=== PATIENT | female | born 1965 | race African-American/Black ===

== ENCOUNTER → 2020-07-08 13:39 | Outpatient (BNVA) | payer OTHER, SELFPAY | PROVIDERS: PCP Internal Medicine; Visit Provider Anesthesiology | DX: Z76.89 Persons encountering health services in other specified circumstances (principal) | CPT/HCPCS: 99202 ==

== ENCOUNTER 2020-08-04 05:40 | Outpatient (REF) | payer OTHER, SELFPAY ==
--- NOTE | 2020-08-04 08:47 | FL_ITS ---
EXAMINATION: XR FLUOROSCOPY WITH IMAGES CLINICAL INFORMATION: M16.0 - Bilateral primary osteoarthritis of hip COMPARISON: MRI pelvis 03/28/2018 TECHNIQUE: Fluoroscopy performed by 08/06/2020. Fluoroscopy time: 0.2 minutes DAP: 3.21 Gycm2 Images: 2 FINDINGS: There is spinal needle seen overlying the superolateral lateral aspect left hip joint with periarticular contrast and intra-articular contrast. FL/FL guidance in treatment room IMPRESSION: Fluoroscopy for pain management procedure.
== END 2020-08-04 05:41 | disposition home or self-care (01) ==
LOC: HO.RADIR 05:40
PROVIDERS: Visit Provider Anesthesiology
DX: M16.0 Bilateral primary osteoarthritis of hip (principal); M47.816 Spondylosis without myelopathy or radiculopathy, lumbar region
CPT/HCPCS: 20610; J3300; Q9967

== ENCOUNTER 2020-08-18 13:02 | Outpatient (REF) | payer OTHER, SELFPAY ==
--- NOTE | 2020-08-18 13:09 | MR_ITS ---
MR LUMBAR SPINE WITHOUT CONTRAST CLINICAL INFORMATION: Spondylosis without myelopathy or radiculopathy. COMPARISON: None available. TECHNIQUE: MRI of the lumbar spine was obtained using routine sequences without contrast. FINDINGS: There are 5 nonrib-bearing lumbar-type vertebral bodies. There is grade 1 degenerative anterolisthesis of L3 on L4. Modic type I endplate signal changes at L3-L4. No additional bone marrow edema. No acute fractures. Vertebral body heights are maintained. There is mild disc volume loss at L4-L5. Disc desiccation at all lumbar levels. The conus terminates at the L1 level. Sigmoid diverticulosis. L1-L2: Disc contour is normal. No central canal stenosis and no foraminal stenosis. L2-L3: Diffuse annular disc bulge with a superimposed left lateral disc protrusion that results in mass effect on the extraforaminal left L2 nerve root. No central canal and no right foraminal stenosis. L3-L4: Grade 1 degenerative anterolisthesis. Severe bilateral facet arthropathy and ligamentum flavum thickening. Findings in concert result in mild to moderate central canal stenosis, left subarticular zone stenosis with mass effect on the traversing left L4 nerve root, and a left foraminal disc protrusion results in severe left foraminal stenosis with compression of the exiting left L3 nerve root. L4-L5: Diffuse annular disc bulge and severe bilateral facet arthropathy and ligamentum flavum thickening. Mild central canal stenosis, bilateral subarticular zone stenosis with probable mass effect on the traversing L5 nerve roots bilaterally, and mild to moderate right-sided foraminal stenosis with right lateral disc osteophyte contacting the extraforaminal right L4 nerve root. L5-S1: Diffuse annular disc bulge and mild to moderate bilateral facet arthropathy. No central canal stenosis. Mild foraminal encroachment bilaterally. MR/MR lumbar spine wo con IMPRESSION: - At L4-L5, multifactorial degenerative changes result in mild central canal stenosis, bilateral subarticular zone stenosis with probable mass effect on the traversing L5 nerve roots bilaterally, and mild to moderate right-sided foraminal stenosis with right lateral disc osteophyte contacting the extraforaminal right L4 nerve root. - At L3-L4, grade 1 degenerative anterolisthesis and multifactorial degenerative changes result in mild to moderate central canal stenosis, left subarticular zone stenosis with mass effect on the traversing left L4 nerve root, and a left foraminal disc protrusion results in severe left foraminal stenosis with compression of the exiting left L3 nerve root. Modic type I endplate signal changes at this level. - At L2-L3, a far left lateral disc protrusion results in mass effect on the extraforaminal left L2 nerve root.
== END 2020-08-18 13:03 | disposition home or self-care (01) ==
LOC: HO.MRI 13:02
PROVIDERS: PCP Internal Medicine; Visit Provider Anesthesiology
DX: M47.816 Spondylosis without myelopathy or radiculopathy, lumbar region (principal)
CPT/HCPCS: 72148

== ENCOUNTER → 2020-09-16 11:12 | Outpatient (BNVA) | payer OTHER, SELFPAY | PROVIDERS: PCP Internal Medicine; Visit Provider Anesthesiology | DX: M16.0 Bilateral primary osteoarthritis of hip (principal); M47.816 Spondylosis without myelopathy or radiculopathy, lumbar region | CPT/HCPCS: 99212 ==

== ENCOUNTER → 2021-05-18 15:37 | Outpatient (BNVA) | payer OTHER, SELFPAY | PROVIDERS: PCP Internal Medicine; Referring Provider Internal Medicine; Visit Provider Nurse Practitioner Family ==

== ENCOUNTER 2021-09-16 14:33 | Outpatient (REF) | payer OTHER, SELFPAY ==
--- NOTE | ~2021-09-16 | CT_ITS ---
EXAMINATION: CT ABDOMEN AND PELVIS WITHOUT CONTRAST CLINICAL INFORMATION: Abdominal distention (gaseous). COMPARISON: CT abdomen and pelvis 08/17/2012. TECHNIQUE: Multidetector volumetric imaging was performed from the superior aspect of the liver through the pubic symphysis. Sagittal and coronal reformatted images were obtained on the technologist's workstation. This CT examination was performed using dose optimization techniques as appropriate, variously including the following: Automated exposure control. Adjustment of mA and/or kV according to patient size (this includes techniques or standardized protocols for targeted exams where dose is matched to indication/reason for exam; i.e. extremities or head). Use of iterative reconstruction technique. DLP: 381 mGy-cm FINDINGS: LUNG BASES: Motion artifact degrades image quality in the lung bases. No consolidation. LIVER, GALLBLADDER, AND BILIARY TREE: The liver is normal in size, shape, and attenuation. No focal hepatic lesion or biliary ductal dilatation is present. The gallbladder is unremarkable with no evidence of radiopaque gallstones, gallbladder wall thickening, or obvious pericholecystic inflammatory changes. PANCREAS: No pancreatic ductal dilatation or peripancreatic fat stranding. SPLEEN: Unremarkable. ADRENAL GLANDS: Unremarkable. KIDNEYS AND URETERS: The kidneys are symmetric in size. There are bilateral predominantly punctate nonobstructing renal calculi, the largest cluster of calcifications in the upper pole of the right kidney measure up to 5 mm. No hydroureter or ureteral calculi. BLADDER: The bladder is decompressed. No bladder calculi. GASTROINTESTINAL TRACT: The stomach is filled with debris. There is no bowel obstruction. There is colonic diverticulosis in the sigmoid colon without diverticulitis. Normal appendix. ABDOMINAL WALL: No significant hernia is appreciated. LYMPH NODES: No bulky lymphadenopathy. VASCULAR: Unremarkable. PELVIC VISCERA: The uterus and adnexa are unremarkable. OSSEOUS STRUCTURES: Severe degenerative disc disease at L4-L5 with vacuum disc phenomenon and underlying endplate sclerosis. Minimal anterolisthesis of L3 on L4 and minimal retrolisthesis of L5 on S1. CT/CT abdomen pelvis wo con IMPRESSION: 1. No evidence of bowel obstruction. 2. Colonic diverticulosis without diverticulitis. 3. Bilateral nonobstructing renal calculi. Fleischner guidelines were followed.
== END 2021-09-16 14:34 | disposition home or self-care (01) ==
LOC: HO.CT 14:33
PROVIDERS: Visit Provider Nurse Practitioner Family
DX: R14.0 Abdominal distension (gaseous) (principal)
CPT/HCPCS: 74176

== ENCOUNTER → 2021-10-27 10:58 | Outpatient (BNVA) | payer OTHER, SELFPAY | PROVIDERS: PCP Internal Medicine; Referring Provider Internal Medicine; Visit Provider Nurse Practitioner Family ==

== ENCOUNTER 2021-11-30 07:44 | Day surgery (SDC) | payer OTHER, SELFPAY ==
[2021-11-25 10:55] VITALS: BMI 21.9
--- NOTE | 2021-11-29 11:17 | P.CONAN_ITS ---
Documented by User: Mehnaz Haro NP 11/29/21 11:18 HPI - Anesthesia Eval Consult details Narrative: 56yo F for Upper Endoscopy and Colonoscopy [facility] Active Problems Active Problems: All Active Problems (Updated 08/03/21 @ 15:39 by Jeimy Gill MD) WESTLEY (generalized anxiety disorder) (Acute) Moderate recurrent major depression (Acute) Chronic GERD (Acute) Memory loss (Acute) Leukocytosis (Acute) Constipation by delayed colonic transit (Acute) Abdominal bloating (Acute) Skin lesions (Acute) Spondylosis of lumbar region without myelopathy or radiculopathy (Acute) Bilateral primary osteoarthritis of hip (Acute) Fibromyalgia (Acute) Depression with anxiety (Acute) Past Medical History Medical History Abdominal bloating Chronic GERD Constipation by delayed colonic transit Depression with anxiety Fibromyalgia WESTLEY (generalized anxiety disorder) Leukocytosis Memory loss Moderate recurrent major depression Skin lesions Family History Family History Father No problems noted. Mother Hypertension Diabetes Ovarian cancer Maternal Grandmother Cervical cancer Family/Other Mental health disorder Substance use disorder Surgical History Surgical History History of eye surgery History of surgery Social History Social History Housing: Apartment Alcohol intake: current Alcohol intake frequency: holidays/special occasions only Alcohol type: hard liquor Patient Tobacco Use Status: Current everyday Tobacco user Tobacco use type: Cigarette Cigarette Packs Per Day: 1.5 Cigarettes Per Day: 30.0 e-Cigarette/Vaping Use: Never Used Second Hand Smoke Exposure: No Use of substances other than those prescribed or required for medical reasons: Yes Substance Use Frequency: Daily Are you DNR?: No Advance Directives: No Advance Directives Information Provided: Yes Advance Directives on File: No service: No Current occupational status: unemployed Meds Allergies Allergy/AdvReac Type Severity Reaction Status Date / Time latex [LATEX] Allergy Mild RASH Verified 10/27/21 11:09 codeine [CODEINE] AdvReac Intermediate UPSET Verified 10/27/21 11:09 STOMACH naproxen [NAPROXEN] AdvReac Intermediate VOMITING Verified 10/27/21 11:09 Home Medications Medication Instructions Recorded Confirmed Last Taken Type clonazepam 1 mg tablet 1 mg PO TID PRN 06/19/20 08/03/21 Unknown History escitalopram oxalate 10 mg tablet 10 mg PO DAILY 08/03/21 08/03/21 Unknown History trazodone 100 mg tablet 200 mg PO BEDTIME PRN 08/03/21 08/03/21 Unknown History aripiprazole 2 mg tablet 2 mg PO DAILY 10/27/21 Unknown History oxcarbazepine 300 mg tablet 300 mg PO BID 10/27/21 Unknown History Exam Exam Date and Time: November 29, 2021 1117 Height,Weight and Vital Signs: Height 5 ft 7 in Weight 63.503 kg Assessment and Plan Assessment Anesthesia Assessment: Chart Reviewed Documented by User: Orville Wray MD 11/30/21 09:37 HPI - Anesthesia Eval Consult details Narrative: 56yo F for Upper Endoscopy and Colonoscopy back pain with radiation to LE . neck pain current smoker feeling bloated PMFSH Past Medical History Medical History Abdominal bloating Chronic GERD Constipation by delayed colonic transit Depression with anxiety Fibromyalgia WESTLEY (generalized anxiety disorder) Leukocytosis Memory loss Moderate recurrent major depression Skin lesions Family History Family History Father No problems noted. Mother Hypertension Diabetes Ovarian cancer Maternal Grandmother Cervical cancer Family/Other Mental health disorder Substance use disorder Family history of problems with anesthesia: No Surgical History Surgical History History of eye surgery History of surgery History of Problems with Anesthesia: No Social History Social History Housing: Apartment Alcohol intake: current Alcohol intake frequency: holidays/special occasions only Alcohol type: hard liquor Patient Tobacco Use Status: Current everyday Tobacco user Tobacco use type: Cigarette Cigarette Packs Per Day: 1.5 Cigarettes Per Day: 30.0 e-Cigarette/Vaping Use: Never Used Second Hand Smoke Exposure: No Use of substances other than those prescribed or required for medical reasons: Yes Substance Use Frequency: Daily Are you DNR?: No Advance Directives: No Advance Directives Information Provided: Yes Advance Directives on File: No service: No Current occupational status: unemployed Meds Allergies Allergy/AdvReac Type Severity Reaction Status Date / Time latex [LATEX] Allergy Mild RASH Verified 10/27/21 11:09 codeine [CODEINE] AdvReac Intermediate UPSET Verified 10/27/21 11:09 STOMACH naproxen [NAPROXEN] AdvReac Intermediate VOMITING Verified 10/27/21 11:09 Home Medications Medication Instructions Recorded Confirmed Last Taken Type clonazepam 1 mg tablet 1 mg PO TID PRN 06/19/20 08/03/21 Unknown History escitalopram oxalate 10 mg tablet 10 mg PO DAILY 08/03/21 08/03/21 Unknown History trazodone 100 mg tablet 200 mg PO BEDTIME PRN 08/03/21 08/03/21 Unknown History aripiprazole 2 mg tablet 2 mg PO DAILY 10/27/21 Unknown History oxcarbazepine 300 mg tablet 300 mg PO BID 10/27/21 Unknown History Exam Airway Mallampati Class: II TM Dist: >3cm Neck ROM: Limited Loose/Missing/Broken Teeth: Yes (Chipped, crack , poor dentation ) Heart: S1 S2 Lungs: bl breath sounds Assessment and Plan Assessment Anesthesia Assessment: Anesthesia Plan Discussed Final Anesthetic Review Family History of Problems with Anesthesia: No History of Problems with Anesthesia: No NPO: Yes ASA Class: III Final Preanesthetic Review: Meds/Allgs Chart Reviewed, Consent Obtained/Reviewed and Anes Risks/Benef Reviewed Patient Risk: High Procedure Risk: Intermediate Anesthetic Plan Anesthetic Plan: MAC: Disposition: Standard PACU
--- NOTE | 2021-11-30 07:21 | MHC.SHP ---
Pre-Procedural Eval Section A Date of Service: 11/30/21 Section B Chief Complaint: Diverticulosis of intestine,reflux Details of Present Illness: lower abdominal pain and distention Relevant Family History (Specify if Yes): No Relevant Social History: Tobacco Use Present Medications: see Short Stay Collaborative assessment Medical History: Significant History (Abdominal bloating Chronic GERD Constipation by delayed colonic transit Depression with anxiety Fibromyalgia WESTLEY (generalized anxiety disorder) Leukocytosis Memory loss Moderate recurrent major depression Skin lesions) History of Previous Operations: Relevant previous surgery/procedure and date(s) (eye surgery) Allergies: Allergies Allergy/AdvReac Type Severity Reaction Status Date / Time latex [LATEX] Allergy Mild RASH Verified 10/27/21 11:09 codeine [CODEINE] AdvReac Intermediate UPSET Verified 10/27/21 11:09 STOMACH naproxen [NAPROXEN] AdvReac Intermediate VOMITING Verified 10/27/21 11:09 Review of Systems Sugical H&P ROS: Negative: Constitution, Cardiovascular, Respiratory, Neurological, Psychiatric, Hem-Onc, Allergic/Immunologic, Gastrointestinal, Genitourinary, Musculoskeletal, Integumentary, Endocrine and Eyes/Ears/Nose/Throat Exam Surgical H&P Exam: Normal: HEENT, Normal: Heart, Normal: Lungs, Normal: Extremities, Normal: Abdomen, Normal: Skin and Normal: Neurological Plan Diagnosis/Plan: Unchanged I have reviewed the history and physical and performed a pertinent physical examination on my patient. No changes have occurred unless specified.
[2021-11-30 08:04] VITALS: BP 117/80; PULSE 77; RESP 16; TEMP 36.8; O2SAT 97
[2021-11-30] MEDS: Lactated Ringers 1,000 ML 100 ML IVCONT (08:27)
--- NOTE | 2021-11-30 09:04 | PM.OP ---
Brief Operative Note Date of Service: 11/30/21 Pre-op diagnosis: Diverticulosis of intestine,reflux, lower abdominal pain Post-op diagnosis: same Procedure: see op note Surgeon: Favian Brantley MD Anesthesia: MAC Was an Mixing Machine Operator used for this Procedure?: No Estimated blood loss (mL): 0 Condition: stable Disposition: PACU
--- NOTE | 2021-11-30 09:05 | P.OP_ITS ---
Operative Note Operative Note Date of Service: 11/30/21 Narrative: Operative Information Procedure Description: EGD, Colonoscopy Indication: Diverticulosis of intestine,reflux, lower abdominal pain Anesthesia: MAC FLEXIBLE TRANSORAL UPPER GASTROINTESTINAL ENDOSCOPY AND COLONOSCOPY PROCEDURE NOTE UPPER ENDOSCOPY Consent: Indications for the procedure and potential complications of bleeding, perforation, reaction to medications and missed diagnosis were discussed with the patient and informed consent was obtained. Instrument: Olympus GIF H 190 J mid size upper endoscope Monitoring: Vital signs and clinical assessment, continuous EKG monitoring, Pulse oximetry, Carbon Dioxide monitoring and blood pressure monitoring were done throughout the procedure. Procedure: The patient was placed in the left lateral decubitis position and pre-procedure medications were administered and a bite block was placed. The endoscope was inserted into the mouth and advanced under direct vision to the third part of duodenum. A careful inspection was made as the upper endoscope was withdrawn including a retroflexed examination of the proximal stomach; Findings and interventions are described below. Findings: Larynx:normal Esophagus: GE junction at 42 cm, diaphragm hiatus at 44 cm, consistent with 2 cm sliding hiatal hernia,possible short segment barretts, bx taken with mild inflammation at GEJ. Random esophagus bx also taken. small esophageal inlet patch noted. Stomach: Streaky gastritis with atrophic areas noted. Biopsies were obtained. Grade 2 flap valve on retroflexed examination of the cardia. Duodenum: Normal bulb and descending duodenum,bx taken Intervention: Biopsies as noted above COLONOSCOPY Instrument: Olympus variable stiffness pediatric scope [id number] Colonoscopy Monitoring: Vital signs and clinical assessment, continuous EKG monitoring, Pulse oximetry, Carbon Dioxide monitoring and blood pressure monitoring were done throughout the procedure. Colon withdrawal time was 13 minutes. Procedure: The patient was placed in the left lateral decubitis position and pre-procedure medications were administered. After a digital rectal examination of the ano-rectum, the video colonoscope was inserted into the rectum and advanced through the colon to the cecum/TI. The colonoscope was slowly withdrawn in a retrograde panoramic fashion and the colon mucosa was carefully examined including a retroflexed view of the rectum. Findings and interventions are described below. Procedure Difficulty: moderate due to looping Findings: Terminal Ileum-normal, bx taken random colon bx taken Cecum:normal Ascending Colon: normal Transverse Colon -normal Descending Colon:normal Sigmoid Colon: moderate severe diverticulosis with hypertrophic folds and mild patchy erythema Rectum: Retroflexion with moderate sized internal hemorrhoids, grade II Anorectum - mildly prolapsed internal hemorrhoids seen Colon preparation: [place] Bowel Preparation Scale Right colon; 2 Transverse colon: 2 Left colon; 1 (0 = Unprepared colon segment with mucosa not seen due to solid stool that cannot be cleared. 1 = Portion of mucosa of the colon segment seen, but other areas of the colon segment not well seen due to staining, residual stool and/or opaque liquid. 2 = Minor amount of residual staining, small fragments of stool and/or opaque liquid, but mucosa of colon segment seen well. 3 = Entire mucosa of colon segment seen well with no residual staining, small fragments of stool or opaque liquid) Impression and Post Procedure Diagnosis: Endoscopy Findings: possible barretts gastritis esophgeal inlet patch mild esophagitis Colonoscopy Findings: internal hemorrhoids diverticular disease Plan: Await Pathology results Repeat Colonoscopy in 5 years deu to prep on let side or earlier if clinically indicated High fiber diet leaflet avoid straining at stool, epsom salts and sitz bath, anusol supps or cream if h pylori pos treat if Barretts confirmed repeat EGD in 1-2 yrs Above findings were reviewed with the patient and relevant handouts were provided if indicated.
[2021-11-30 10:03] VITALS: BP 106/60; PULSE 97; RESP 16; TEMP 37.1; O2SAT 99
[2021-11-30 10:18] VITALS: BP 122/79; PULSE 85; O2SAT 98
[2021-11-30 10:33] VITALS: BP 126/76; PULSE 84; TEMP 37; O2SAT 97
== END 2021-11-30 10:55 ==
LOC: HO.SSS 07:45
PROVIDERS: PCP Internal Medicine; Visit Provider Internal Medicine Gastroenterology
PROC: (CPT 45380; principal; 2021-11-30 08:20)
DX: Z12.11 Encounter for screening for malignant neoplasm of colon (principal); K57.30 Diverticulosis of large intestine without perforation or abscess without bleeding; R10.30 Lower abdominal pain, unspecified; K64.1 Second degree hemorrhoids; K64.8 Other hemorrhoids; K58.2 Mixed irritable bowel syndrome; K59.01 Slow transit constipation; K21.9 Gastro-esophageal reflux disease without esophagitis; K20.80 Other esophagitis without bleeding; K29.50 Unspecified chronic gastritis without bleeding; K29.80 Duodenitis without bleeding; K44.9 Diaphragmatic hernia without obstruction or gangrene; Q39.8 Other congenital malformations of esophagus; N20.0 Calculus of kidney; F33.1 Major depressive disorder, recurrent, moderate; M79.7 Fibromyalgia; D72.829 Elevated white blood cell count, unspecified; Z79.899 Other long term (current) drug therapy; Z88.8 Allergy status to other drugs, medicaments and biological substances; Z91.040 Latex allergy status; F17.210 Nicotine dependence, cigarettes, uncomplicated
CPT/HCPCS: 45380; 43239; 88305; 88342; J0171; J2405

== ENCOUNTER 2022-02-01 13:44 | Emergency (ER) | payer OTHER, SELFPAY ==
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
--- NOTE | ~2022-02-01 | XR_ITS ---
EXAMINATION: XR THORACIC SPINE CLINICAL INFORMATION: Fall, trauma, pain COMPARISON: Chest radiographs 06/29/2018. MR lumbar spine 08/18/2020, CT abdomen 09/16/2021. TECHNIQUE: 3 views of the thoracic spine were obtained. Preliminary interpretation provided at time of exam during PACS downtime. FINDINGS: There is normal thoracic segmentation with 12 rib-bearing thoracic vertebrae. Borderline levocurvature mid thoracic spine again seen, similar to chest radiographs 2018. There is borderline wedging vertebral body T8, slightly more conspicuous when compared with lateral chest 2018. There is no paraspinal soft tissue swelling. The remainder of the vertebral bodies are normal in height. No spondylolisthesis or erosive changes. Hilar and mediastinal contours appear normal. XR/XR thoracic spine 3V IMPRESSION: -Mild wedging vertebral body T8, slightly more conspicuous when compared with lateral chest radiograph 2018. No paraspinal soft tissue swelling.
--- NOTE | ~2022-02-01 | XR_ITS ---
EXAMINATION: XR LUMBOSACRAL SPINE CLINICAL INFORMATION: Fall, trauma, pain COMPARISON: CT abdomen and pelvis 09/16/2021, MR lumbar spine 08/18/2020, radiographs lumbar spine 03/12/2015. TECHNIQUE: Three views of the lumbosacral spine. FINDINGS: There is normal lumbar segmentation with 5 nonrib-bearing lumbar vertebrae of normal height and normal lumbar lordosis. There is mild dextrocurvature. Prominent degenerative disc changes are again noted at L4-L5 with disc narrowing and vacuum disc and endplate sclerosis and vertebral spurring. There are lesser degenerative disc changes at L3-L4 along with a grade 0-1 spondylolisthesis similar to borderline increased since CT 2021. There are multilevel degenerative facet changes again seen. The SI joints and visualized sacrum are unremarkable. There are calculi again noted in the right kidney upper and lower poles. Probable calculi left kidney. XR/XR lumbar spine 2-3V IMPRESSION: -Severe degenerative disc changes L4-L5 similar to CT 2021. -Degenerative disc changes L3-L4 with grade 0-1 spondylolisthesis borderline increased. -Multilevel facet degeneration. -Multiple renal calculi, greater on right.
[2022-02-01 13:56] VITALS: BP 123/77; BP 98/64; PULSE 80; PULSE 98; RESP 18; TEMP 36.6; O2SAT 96; O2SAT 97; BMI 23.3
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
== END 2022-02-01 16:25 | disposition home or self-care (01) ==
PROVIDERS: Emergency Provider Emergency Medicine; PCP Internal Medicine
DX: R07.81 Pleurodynia (principal); S22.060A Wedge compression fracture of T7-T8 vertebra, initial encounter for closed fracture; S29.012A Strain of muscle and tendon of back wall of thorax, initial encounter; W18.2XXA Fall in (into) shower or empty bathtub, initial encounter; Y93.E1 Activity, personal bathing and showering; Y92.031 Bathroom in apartment as the place of occurrence of the external cause; Y99.9 Unspecified external cause status
CPT/HCPCS: 71101; 72072; 72100; 99283

== ENCOUNTER → 2022-02-07 11:20 | Outpatient (BNVA) | payer OTHER, SELFPAY | PROVIDERS: PCP Internal Medicine; Visit Provider Nurse Practitioner Family | DX: R14.0 Abdominal distension (gaseous) (principal); K21.9 Gastro-esophageal reflux disease without esophagitis; Z79.899 Other long term (current) drug therapy; Z98.890 Other specified postprocedural states | CPT/HCPCS: 99212 ==

== ENCOUNTER 2022-02-21 00:12 | Emergency (ER) | payer OTHER, SELFPAY ==
[2022-02-21 00:24] VITALS: BP 138/92; BP 146/83; PULSE 78; PULSE 90; RESP 16; TEMP 36.8; O2SAT 94; O2SAT 96; BMI 24.8
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
--- NOTE | 2022-02-21 03:00 | PC.NURSE ---
pt is increasingly agitated, tearful, reports that she doesn't know why she's at the hospital. explained that EMS brought pt in and she needs to stay until she is sober enough to leave - pt reports drinking lots of shots.
--- NOTE | 2022-02-21 03:06 | PC.NURSE ---
pt exit seeking, walking to door/attempting to open door, increasingly agitated/combative, difficult to redirect.
== END 2022-02-21 03:12 | disposition left against medical advice (07) ==
PROVIDERS: Emergency Provider Emergency Medicine; PCP Internal Medicine
DX: F10.920 Alcohol use, unspecified with intoxication, uncomplicated (principal); Y90.9 Presence of alcohol in blood, level not specified; F12.920 Cannabis use, unspecified with intoxication, uncomplicated; F17.200 Nicotine dependence, unspecified, uncomplicated
CPT/HCPCS: 99281; 99282

== ENCOUNTER 2022-05-10 14:31 | Outpatient (REF) | payer OTHER, SELFPAY ==
--- NOTE | ~2022-05-10 | XR_ITS ---
EXAMINATION: XR HAND, LEFT CLINICAL INFORMATION: Pain. COMPARISON: None TECHNIQUE: PA, lateral, and oblique views of the left hand. FINDINGS: Minimal reduction of PIP and DIP joint space seen without any bony erosive changes. There is minimal spurring along the DIP joint second digit and PIP joint first digit. No fracture or dislocation seen. Mild reduction of first carpometacarpal joint space is seen. There is minimal soft tissue swelling fifth dorsal MCP joint. XR/XR hand LT min 3V IMPRESSION: 1. Mild degenerative changes PIP and DIP joints and first carpometacarpal joint. No visible acute fracture or dislocation seen. 2. Minimal soft tissue swelling fifth MCP joint.
== END 2022-05-10 14:32 | disposition home or self-care (01) ==
LOC: HO.HOSX 14:31
PROVIDERS: Visit Provider Orthopaedic Surgery
DX: G56.32 Lesion of radial nerve, left upper limb (principal)
CPT/HCPCS: 99202

== ENCOUNTER 2022-06-22 11:36 | Outpatient (REF) | payer OTHER, SELFPAY | END 2022-06-22 11:37 | disposition home or self-care (01) | LOC: HO.HOSX 11:36 | PROVIDERS: Visit Provider Orthopaedic Surgery | DX: G56.32 Lesion of radial nerve, left upper limb (principal); M18.12 Unilateral primary osteoarthritis of first carpometacarpal joint, left hand | CPT/HCPCS: 73130; 99212 ==

== ENCOUNTER 2022-08-09 11:24 | Outpatient (REF) | payer OTHER, SELFPAY ==
[2022-08-09 14:54] LABS: Hematocrit 36.9 % (37.0-47.0); Hemoglobin 12.3 g/dl (12.0-16.0); Mean Corpuscular HGB Conc 33.3 g/dl (31.0-35.0); Mean Corpuscular Hemoglobin 28.4 pg (27.0-33.0); Mean Corpuscular Volume 85.2 fL (80.0-98.0); Mean Platelet Volume 9.9 fL (9.4-12.3); Platelet Count 213 X10*3/uL (160-400); Red Blood Count 4.33 X10*6/uL (4.20-5.50); Red Cell Distribution Width 14.8 % (11.0-16.0); White Blood Count 11.1 X10*3/uL (4.8-10.8)
[2022-08-09 16:40] LABS: Alanine Aminotransferase 12 U/L (0-31); Albumin Level 4.2 g/dL (3.5-5.0); Alkaline Phosphatase 74 U/L (39-117); Anion Gap 12 (12-20); Aspartate Amino Transferase 17 U/L (5-31); Bilirubin Total 0.3 mg/dL (0.0-1.0); Blood Urea Nitrogen 9 mg/dL (9-16); Calcium 9.7 mg/dL (8.4-10.2); Carbon Dioxide 28 mmol/L (22-29); Chloride 104 mmol/L (96-108); Estimated Glomerular Filt Rate > 60; Glucose Random 89 mg/dL (60-115); Potassium 3.8 mmol/L (3.3-5.1); Sodium 140 mmol/L (135-145); TSH reflex Free T4 0.64 uIU/mL (0.32-4.0); Total Protein 6.7 g/dL (6.5-8.0)
[2022-08-09 17:11] LABS: Folate > 20.0 ng/mL (> or = 4.0); Vitamin B12 589 pg/mL (200-900)
[2022-08-15 13:34] LABS: Transglutaminase Ab IgG <1.0 U/mL; Transglutaminase IgA <1.0 U/mL
[2022-08-15 14:59] LABS: Vitamin D 25-OH, D2 <4 ng/mL; Vitamin D 25-OH, D3 53 ng/mL; Vitamin D 25-OH, Total 53 ng/mL (30-100)
== END 2022-08-09 11:25 | disposition home or self-care (01) ==
LOC: HO.LAB 11:24
PROVIDERS: PCP Internal Medicine; Referring Provider Internal Medicine; Visit Provider Nurse Practitioner Family
DX: R10.9 Unspecified abdominal pain (principal); K21.9 Gastro-esophageal reflux disease without esophagitis; E55.9 Vitamin D deficiency, unspecified; K59.00 Constipation, unspecified; K20.90 Esophagitis, unspecified without bleeding; R19.7 Diarrhea, unspecified; R14.0 Abdominal distension (gaseous); K58.2 Mixed irritable bowel syndrome
CPT/HCPCS: 36415; 80053; 82306; 82607; 82746; 84443; 85027; 86003; 86364; 99212

== ENCOUNTER 2022-08-31 18:09 | Outpatient (REF) | payer OTHER, SELFPAY ==
[2022-09-09 16:58] LABS: Pancreatic Elastase-1 >500 mcg/g
== END 2022-08-31 18:10 | disposition home or self-care (01) ==
LOC: HO.LNP 18:09
PROVIDERS: Visit Provider Nurse Practitioner Family
DX: R10.9 Unspecified abdominal pain (principal); K21.9 Gastro-esophageal reflux disease without esophagitis
CPT/HCPCS: 82656; 87338

== ENCOUNTER 2022-09-01 16:34 | Outpatient (REF) | payer OTHER, SELFPAY ==
[2022-09-01 18:31] LABS: Adenovirus F 40/41 Not Detected (Not Detect.); Astrovirus Not Detected (Not Detect.); Campylobacter Not Detected (Not Detect.); Cryptosporidium Not Detected (Not Detect.); Cyclospora cayetanensis Not Detected (Not Detect.); E. coli EAEC Not Detected (Not Detect.); E. coli EPEC Not Detected (Not Detect.); E. coli ETEC Not Detected (Not Detect.); E. coli STEC Not Detected (Not Detect.); Entamoeba histolytica Not Detected (Not Detect.); Giardia lamblia Not Detected (Not Detect.); Norovirus GI/GII Not Detected (Not Detect.); Plesiomonas shigelloides Not Detected (Not Detect.); Rotavirus A Not Detected (Not Detect.); Salmonella Not Detected (Not Detect.); Sapovirus Not Detected (Not Detect.); Shigella sp./EIEC Not Detected (Not Detect.); Vibrio Not Detected (Not Detect.); Vibrio Cholerae Not Detected (Not Detect.); Yersinia enterocolitica Not Detected (Not Detect.)
== END 2022-09-01 16:35 | disposition home or self-care (01) ==
LOC: HO.LNP 16:34
PROVIDERS: Visit Provider Nurse Practitioner Family
DX: R19.7 Diarrhea, unspecified (principal)
CPT/HCPCS: 87507

== ENCOUNTER → 2022-09-20 11:30 | Outpatient (BNVA) | payer OTHER, SELFPAY | PROVIDERS: PCP Internal Medicine; Visit Provider Nurse Practitioner Family | DX: K21.9 Gastro-esophageal reflux disease without esophagitis (principal); K58.2 Mixed irritable bowel syndrome; R14.0 Abdominal distension (gaseous); Z79.899 Other long term (current) drug therapy | CPT/HCPCS: 99212 ==

== ENCOUNTER 2022-10-20 10:42 | Outpatient (REF) | payer OTHER, SELFPAY ==
--- NOTE | 2022-10-20 15:29 | PFT_ITS ---
Forced vital capacity 97%, FEV1 82%. FEV1/FVC ratio is 66. [id number] 52% and MVV 81%. Post bronchodilator therapy, there is a slight improvement in [id number]. Total lung capacity 105% and residual volume 96%. Diffusion capacity is 62% CONCLUSION: Mild obstructive airway disorder with a slight improvement after bronchodilator therapy. Clinical correlation is recommended. MD VAN Moore/BRYANL / [id number]
== END 2022-10-20 10:43 | disposition home or self-care (01) ==
LOC: HO.RESP 10:42
PROVIDERS: PCP Internal Medicine; Visit Provider Nurse Practitioner Family
DX: R05.9 Cough, unspecified (principal)
CPT/HCPCS: 94060; 94727; 94729

== ENCOUNTER 2022-12-15 10:41 | Outpatient (REF) | payer OTHER, SELFPAY ==
[2022-12-17 07:23] LABS: HPV mRNA E6/E7 rflx Not Detected (Not Detected)
== END 2022-12-15 10:42 | disposition home or self-care (01) ==
LOC: HO.LNP 10:41
PROVIDERS: PCP Internal Medicine; Visit Provider Advanced Practice Midwife
DX: Z01.419 Encounter for gynecological examination (general) (routine) without abnormal findings (principal); Z11.51 Encounter for screening for human papillomavirus (HPV); R10.2 Pelvic and perineal pain; N95.1 Menopausal and female climacteric states; R14.0 Abdominal distension (gaseous); Z86.018 Personal history of other benign neoplasm
CPT/HCPCS: 81003; 87624; 88142

== ENCOUNTER 2022-12-15 11:56 | Outpatient (REF) | payer OTHER, SELFPAY ==
[2022-12-15 15:46] LABS: CT PCR NOT DETECTED (Not Detect.); NG PCR NOT DETECTED (Not Detect.)
[2022-12-16 11:05] LABS: BV Int Neg Control Negative (Negative); BV Int Pos Control Positive (Positive)
== END 2022-12-15 11:57 | disposition home or self-care (01) ==
LOC: HO.LAB 11:56
PROVIDERS: Visit Provider Advanced Practice Midwife
DX: R10.2 Pelvic and perineal pain (principal); N95.1 Menopausal and female climacteric states; Z20.2 Contact with and (suspected) exposure to infections with a predominantly sexual mode of transmission
CPT/HCPCS: 0353U; 87480; 87510; 87660

== ENCOUNTER → 2023-01-06 11:32 | Outpatient (BNVA) | payer OTHER, SELFPAY | PROVIDERS: PCP Internal Medicine; Visit Provider Nurse Practitioner Family | DX: K21.9 Gastro-esophageal reflux disease without esophagitis (principal); K58.2 Mixed irritable bowel syndrome; R14.0 Abdominal distension (gaseous) | CPT/HCPCS: 99212 ==

== ENCOUNTER 2023-01-27 13:43 | Outpatient (REF) | payer OTHER, SELFPAY ==
--- NOTE | ~2023-01-27 | CT_ITS ---
EXAMINATION: CT CHEST SCREENING CLINICAL INFORMATION: Nicotine dependence. COMPARISON: None available. TECHNIQUE: Multidetector volumetric CT imaging of the chest is performed without contrast using low dose technique. Additional 2D coronal and sagittal reformatted images and axial 3D maximum intensity projection (MIP) images are generated on the CT workstation. This CT examination was performed using dose optimization techniques as appropriate, variously including the following: *Automated exposure control *Adjustment of mA and/or kV according to patient size (this includes techniques or standardized protocols for targeted exams where dose is matched to indication/reason for exam; i.e. extremities or head) *Use of iterative reconstruction technique DLP: 46 mGy-cm FINDINGS: LUNGS: The lungs are well expanded with a thin-walled 2.5 cm cyst in the right upper lobe. Fine reticular interstitial prominence is seen in the left upper lobe anterior segment. There are no pulmonary nodules, mass or consolidation. MEDIASTINUM: Thyroid lobes are symmetric and normal. The central trachea and the bronchi are widely patent. Heart size and the great vessels are normal caliber. No abnormal-sized mediastinal or hilar lymph nodes are seen. CORONARY ARTERY CALCIFICATION: None visualized on this study. PLEURA: There is no pleural effusion. No pleural mass or thickening. AXILLA: No lymphadenopathy. UPPER ABDOMEN: The visualized liver, spleen, pancreas and bilateral adrenal glands are unremarkable. Incidental finding of a 7 mm radiopaque calculus in the upper pole of the right kidney. OSSEOUS STRUCTURES: No visible sclerotic or lytic lesion. CT/CT lung screening IMPRESSION: 2.5 cm cyst right upper lobe. No focal nodule, mass or consolidation. Fine interstitial thickening left upper lobe. ASSESSMENT: Lung-RADS category 2: Benign RECOMMENDATION: Low-dose annual CT chest.
== END 2023-01-27 13:44 | disposition home or self-care (01) ==
LOC: HO.CT 13:43
PROVIDERS: PCP Internal Medicine; Visit Provider Physician Assistant Medical
DX: Z12.2 Encounter for screening for malignant neoplasm of respiratory organs (principal); F17.210 Nicotine dependence, cigarettes, uncomplicated
CPT/HCPCS: 71271; G0296

== ENCOUNTER 2023-01-30 10:53 | Outpatient (REF) | payer OTHER, SELFPAY ==
--- NOTE | ~2023-01-30 | CT_ITS ---
EXAMINATION: CT HEAD WITHOUT CONTRAST CLINICAL INFORMATION: Mild cognitive impairment. COMPARISON: Head CT dated 02/18/2012. TECHNIQUE: Contiguous axial imaging was performed from the skullbase to vertex without intravenous administration of contrast. This CT examination was performed using dose optimization techniques as appropriate, variously including the following: *Automated exposure control *Adjustment of mA and/or kV according to patient size (this includes techniques or standardized protocols for targeted exams where dose is matched to indication/reason for exam; i.e. extremities or head) *Use of iterative reconstruction technique DLP: 730 mGy-cm. FINDINGS: There is no evidence of acute intracranial hemorrhage or territorial infarction. No abnormal mass effect or midline shift is seen. Myles to white matter differentiation is well preserved. No extra-axial fluid collections are identified. The ventricles are normal in size. There is no abnormal attenuation within the brain parenchyma. The osseous structures and soft tissues are normal. The mastoid air cells and visualized portions of the paranasal sinuses are well aerated. CT/CT head/brain wo IV con IMPRESSION: No acute intracranial pathology.
--- NOTE | ~2023-01-30 | US_ITS ---
EXAMINATION: US PELVIS CLINICAL INFORMATION: Abdominal distention. COMPARISON: None available. TECHNIQUE: Ultrasound of the pelvis is performed using both transabdominal and transvaginal transducers along with Doppler. Transvaginal imaging is performed due to inadequate visualization transabdominally. FINDINGS: UTERUS: The uterus is anteverted and retroflexed measuring8.6 x 4.9 x 6.0 cm. The double wall endometrial thickness is 11 mm. The uterus is smooth in contour and has normal myometrial echogenicity. There is a single right-sided submucosal uterine fibroid present measuring 1.4 cm. ADNEXA: Both ovaries are visualized. There is normal color flow to the adnexa. There is no ovarian torsion. There is no pelvic ascites or fluid collection. Right ovary measures 2.2 x 2.0 x 1.6 cm for a volume of 3.7 mL which includes 2 small cysts the largest 1.2 cm. Left ovary measures 2.7 x 2.3 x 1.7 cm for a volume of 5.5 mL which includes a 1.3 cm benign cyst. US/US pelvic and transvaginal IMPRESSION: 1. Small submucosal uterine fibroid. 2. Bilateral small ovarian cysts which need no further follow-up.
== END 2023-01-30 10:54 | disposition home or self-care (01) ==
LOC: HO.CT 10:53
PROVIDERS: PCP Internal Medicine; Visit Provider Advanced Practice Midwife
DX: G31.84 Mild cognitive impairment of uncertain or unknown etiology (principal); R14.0 Abdominal distension (gaseous); Z86.018 Personal history of other benign neoplasm
CPT/HCPCS: 70450; 76830; 76856

== ENCOUNTER 2023-02-07 12:00 | Outpatient (RCR) | payer OTHER, SELFPAY ==
--- NOTE | 2022-10-24 14:33 | MHC.PT.EP ---
[facility] [place] [facility] [place] Office [place] Office [address] Simeon Mcleod [address] [phone] F: [phone] F: [phone] F: [phone] F: [phone] Physical Therapy Plan of Care Date of Evaluation: Date of Surgery: N/A Diagnosis: Low back pain, unspecified Assessment: Pt is a 57yo F who presents to PT with chronic back pain for years. She presents to PT with current impairments in pain, decreased ROM, decreased core stabilization, decreased strength, soft tissue restrictions and impaired posture. She stands/ambulates in a forward flexion posture. She is limited functionally by prolonged standing, walking, prolonged sitting, bending, and transitional movements. She is fair candidate for skilled PT due to chronicity of injury and comorbidities however she will benefit from trial of skilled PT in order to maximize strength and functional mobility to decrease pain, improve function and QOL. She is recommended to be seen 2x/week however she prefers 1x/week at this time therefore she will be seen 1x/week for 4 weeks and will be reassessed. Frequency and Duration: The patient will be seen 2x/week for 4 weeks Short Term Goals: Pt will be I with HEP to promote self management of symptoms Pt will demonstrate improvements in postural awareness throughout the day Boot Liner Maker Goals: Pt will tolerate standing and walking >20 min with improved posture and mechanics with LRAD Pt will demonstrate ability to squat and pick up operator object from the floor with proper mechanics Treatment Plan: Modalities to reduce pain, spasms and effusion. Manual therapy to restore motion and function. Therapeutic exercise to improve strength and flexibility. Neuromuscular re-education for posture and balance. Therapeutic activities to return to functional activities of daily living. Electronically signed by: Damaris Marx, PT, DPT Please sign and return to therapist. Thank you for your referral.
--- NOTE | 2023-02-28 11:43 | MHC.PT.DC ---
[facility] [place] Office [place] Office [place] Office [address] Simeon Mcleod [address] [phone] F: [phone] F: [phone] F: [phone] F: [phone] Physical Therapy Discharge Report Diagnosis: Low back pain, unspecified Date of Surgery: N/A Date of Evaluation: 10/24/22 Date of Discharge: 02/28/23 Treatments to Date: 8 Cancellations to Date: 3 No Shows to Date: 1 Discharge Status: Visit Non-compliance Discharge Summary: Pt was seen for PT from 10/24/22-02/07/23. She did not consistently attend and overall attended 8 PT sessions over the course of ~3 months. She had a no-show appointment for her last scheduled appointment. Pt is being D/C from skilled PT. Pt current level of function unknown at this time. Electronically signed by: Damaris Marx, PT, DPT Please sign and return to therapist. Thank you for your referral.
== END 2023-02-28 11:42 | disposition home or self-care (01) ==
LOC: HO.PT 12:00
PROVIDERS: PCP Internal Medicine; Visit Provider Internal Medicine
DX: M54.50 Low back pain, unspecified (principal)
CPT/HCPCS: 97110; 97140; 97163

== ENCOUNTER 2023-06-08 10:00 | Outpatient (AMB) | payer OTHER, SELFPAY ==
--- NOTE | 2023-06-08 10:01 | A.OFFVIS_ITS ---
Intake Intake Visit Reasons: TV Ultrasound Follow up/ 45min Intake Note: cell # [phone] The patient agreed to use of a medical claims examiner during this encounter. Scribed for LUKAS Shell by Martha Solano medical claims examiner, on 06/08/2023 at 10:13 am EST. Allergies latex [LATEX] Allergy (Mild, Verified 06/08/23 10:01) RASH codeine [CODEINE] Adverse Reaction (Intermediate, Verified 06/08/23 10:01) UPSET STOMACH naproxen [NAPROXEN] Adverse Reaction (Intermediate, Verified 06/08/23 10:01) VOMITING HPI HPI Comments History of Present Illness Details Doximity live video 10:13 am - 10:38 am. Phone Call due to Covid-19 Pandemic. Video was utilized. She presents via phone/live video to discuss US results regarding abdominal distention. Reports she recently had a dog bite to her face and received Rx. LMP was over a year and a half. Admits she was told she had ovarian cysts. Reports abdominal bloating and constipation. Reports she would like to learn more information about menopause and calcium information. Admits she take Calcium supplements. Current everyday smoker. [facility] Medical History Tobacco use Menopause Bilateral ovarian cysts Submucous uterine fibroid Nicotine dependence, cigarettes, uncomplicated WESTLEY (generalized anxiety disorder) Moderate recurrent major depression Chronic GERD Memory loss Leukocytosis Constipation by delayed colonic transit Abdominal bloating Fibromyalgia Surgical History History of lymph node excision History of endoscopy History of colonoscopy History of eye surgery Family History Father No problems noted. 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 COMPARISON: None available. TECHNIQUE: Ultrasound of the pelvis is performed using both transabdominal and transvaginal transducers along with Doppler. Transvaginal imaging is performed due to inadequate visualization transabdominally. FINDINGS: UTERUS: The uterus is anteverted and retroflexed measuring8.6 x 4.9 x 6.0 cm. The double wall endometrial thickness is 11 mm. The uterus is smooth in contour and has normal myometrial echogenicity. There is a single right-sided submucosal uterine fibroid present measuring 1.4 cm. ADNEXA: Both ovaries are visualized. There is normal color flow to the adnexa. There is no ovarian torsion. There is no pelvic ascites or fluid collection. Right ovary measures 2.2 x 2.0 x 1.6 cm for a volume of 3.7 mL which includes 2 small cysts the largest 1.2 cm. Left ovary measures 2.7 x 2.3 x 1.7 cm for a volume of 5.5 mL which includes a 1.3 cm benign cyst. US/US pelvic and transvaginal IMPRESSION: 1. Small submucosal uterine fibroid. 2. Bilateral small ovarian cysts which need no further follow-up. Collected: 12/15/22 Location: [facility] Received: 12/15/22 Interpretation Satisfactory for evaluation. Negative for intraepithelial lesion or malignancy. Coccobacilli consistent with shift in vaginal adwoa. HPV mRNA E6/E7: NOT DETECTED This assay detects E6/E7 viral messenger RNA (mRNA) from 14 high-risk HPV types (16, 18, 31, 33, 35, 39, 45, 51, 52, 56, 58, 59, 66, 68) HPV testing performed by [employer] [facility], [place], [place]. See reference laboratory portion of the EMR for entire report. Clinical Information LMP: Menopausal Previous PAP test: 2015, Abnormal Other history: Hx dysplaisa and colpo in 20's Assessment & Plan Assessment & Plan (1) Encounter to discuss test results: Code(s): Z71.2 - Person consulting for explanation of examination or test findings Plan: Discussed: US findings of: 1. Small submucosal uterine fibroid. 2. Bilateral small ovarian cysts which need no further follow-up. All of her questions and concerns were addressed to the best of my ability and shared decision making. She is agreeable to plan of care. RTO for AG 12/2023, repeat US same day per pt. request due to lack of transportation. (2) Submucous uterine fibroid: Code(s): D25.0 - Submucous leiomyoma of uterus Plan: Leiomyoma: common benign pelvic neoplasm. Report any PMB, pelvic pain. Plan expectant management. Pelvic US ordered. Pt would like same day appointment as AG. Expectant management follow up yearly for stability. (3) Bilateral ovarian cysts: Code(s): N83.201 - Unspecified ovarian cyst, right side; N83.202 - Unspecified ovarian cyst, left side (4) Menopause: Code(s): Z78.0 - Asymptomatic menopausal state Plan: Maintaining a healthy lifestyle including a well balanced diet including Calcium and Vitamin D and routine exercise. Report any PMB. Recommend researching [place] [employer]. Advised to consult with local pharmacist regarding Calcium and Vitamin D supplements. Encouraged tobacco cessation/reduction, impact on bone health. (5) Nicotine dependence, cigarettes, uncomplicated: Comment: (Current smoker - onset 17yo, 1ppd x 40yrs, 30+PYH) Code(s): F17.210 - Nicotine dependence, cigarettes, uncomplicated Plan: Encourage to lower tobacco intake then quit. Orders: Orders US pelvic and transvaginal 12/21/23 D25.0 - Submucous leiomyoma of uterus Telehealth Telehealth Location of provider rendering services: practice address Location of patient: address on file Patient Identification confirmed using: Name, : Yes Telehealth method: video Patient verbally consented to treatment: Yes Patient verbally consented to billing insurance company: Yes Patient informed of any privacy concerns related to visit: Yes Coding Level of Care Code Tele Est Pt Level 3 (91588) Diagnoses Encounter to discuss test results Z71.2 Submucous uterine fibroid D25.0 Bilateral ovarian cysts N83.201; N83.202 Menopause Z78.0 Nicotine dependence, cigarettes, uncomplicated F17.210
== END 2023-06-08 11:22 | disposition home or self-care (01) ==
LOC: HO.HWS 10:00
PROVIDERS: PCP Nurse Practitioner Family; Visit Provider Advanced Practice Midwife
DX: Z71.2 Person consulting for explanation of examination or test findings (principal); D25.0 Submucous leiomyoma of uterus; N83.201 Unspecified ovarian cyst, right side; N83.202 Unspecified ovarian cyst, left side; Z78.0 Asymptomatic menopausal state; F17.210 Nicotine dependence, cigarettes, uncomplicated
CPT/HCPCS: 99213

== ENCOUNTER → 2023-06-08 10:00 | Outpatient (BNVA) | payer OTHER, SELFPAY | PROVIDERS: PCP Nurse Practitioner Family; Visit Provider Advanced Practice Midwife ==

== ENCOUNTER 2023-07-24 13:38 | Outpatient (AMB) | payer OTHER, SELFPAY ==
[2023-07-24 13:45] VITALS: BP 108/68; PULSE 96; O2SAT 95; BMI 22.9
--- NOTE | 2023-07-24 13:45 | MHC.PC.OV ---
Vital Signs 07/24/23 13:45 Height 5 ft 7 in Weight 146 lb 6 oz BMI 22.9 BP 108/68 Blood Pressure Location Lt brachial Position Sitting Pulse 96 Pulse Source Pulse Oximeter Pulse Oximetry (%) 95 Oxygen Delivery Method Room Air Intake Visit Reasons: leg vein concerns, would like EKG Intake Note: Pt is here with a concerns about the left leg, reporting noticeable veins protruding and experiencing numbness in the lower extremities. Data Systems Manager Required: No Accompanied by: Self / Same As Patient Allergies latex [LATEX] Allergy (Mild, Verified 07/24/23 13:58) RASH codeine [CODEINE] Adverse Reaction (Intermediate, Verified 07/24/23 13:58) UPSET STOMACH naproxen [NAPROXEN] Adverse Reaction (Intermediate, Verified 07/24/23 13:58) VOMITING Medication List - Last Reconciled 07/24/23 by Filemon Sy PA-C acetaminophen ER 1,300 mg (2 x 650 mg) PO Q12H PRN 30 days albuterol sulfate 90 mcg/actuation (Ventolin HFA) 2 puffs inhalation Q4-6H PRN amoxicillin-pot clavulanate 875-125 mg 1 tab PO BID calcium carbonate-vitamin D3 500 mg-10 mcg (400 unit) (Oyster Shell Calcium-Vitamin D3) 1 tab PO DAILY 90 days clonazepam 1 mg PO TID PRN cyclobenzaprine 10 mg PO BEDTIME PRN 3 months escitalopram oxalate 20 mg PO DAILY fluticasone propionate 50 mcg/actuation (Flonase Allergy Relief) 1 spray intranasal DAILY food supplemt, lactose-reduced (Ensure oral liquid) ea PO gabapentin 800 mg PO TID 3 months glucosamine-chondroitin 750-600 mg 1 tab PO BID ibuprofen 800 mg PO TID PRN 30 days Lacto no.51-B.animalis-inulin 30 billion cell -50 mg (Fortify Women Probiotic) caps PO lidocaine 5% 1 patch topical DAILY PRN 30 days loperamide (Imodium A-D) 2 mg PO Q4H PRN kl-xsr-cgfxz-calcium carb-K1 400 mcg-500 mg calcium-20 mcg (Women's 50 Plus Multivitamin) 1 tab PO DAILY omeprazole 20 mg PO DAILY simethicone (Gas Relief (simethicone)) 80 mg PO TID-QID PRN trazodone 200 mg PO BEDTIME PRN [Tumeric Curcumin Complex 1 cap PO DAILY] valacyclovir 1,000 mg PO DAILY 90 days Tobacco use date assessed: 09/23/22 Dental Screening Dental Screen Date: 07/24/23 Did you have a dental visit in the last 12 months?: Yes Did you have a dental problem in the last 6 months where you did not have access to dental care?: No Was dental information given to patient?: Patient has dentist HPI leg vein concerns, would like EKG HPI Details Patient is a 58-year-old female here today for a problem visit. Patient's past medical history significant for anxiety disorder, tobacco dependency. She reports over the last several months he has noted bulging viens in her lower extremities she is concerned about. She is also concerned about her constipation that has been evident over the last several years. Does see a GI specialist and has tried befm-tqx-qmhrudu laxatives. She does report spending few hours every morning on the toilet trying to pass stool. During her time on the toilet she does get was seems to be positional neuropathy symptoms in her left lower extremity PFS Medical History Tobacco use Menopause Bilateral ovarian cysts Submucous uterine fibroid Nicotine dependence, cigarettes, uncomplicated WESTLEY (generalized anxiety disorder) Moderate recurrent major depression Chronic GERD Memory loss Leukocytosis Constipation by delayed colonic transit Abdominal bloating Fibromyalgia Surgical History History of lymph node excision History of endoscopy History of colonoscopy History of eye surgery Family History Father No problems noted. 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 Trevon Bowden, Kathleen Oconnor, German Quintero and colleagues, with an educational zeke from [employer]. Review of Systems Const Denies headache(s) Eyes Denies loss of vision ENT Denies vertigo, Denies dizziness, Denies headache(s) and Denies sore throat Card Denies chest pain, Denies leg edema and Denies lightheadedness Resp Denies cough, Denies hemoptysis and Denies wheezing GI Denies abdominal pain, Denies melena, Reports constipation, Denies diarrhea and Denies vomiting Denies urinary frequency, Denies dysuria and Denies urinary urgency Musc Denies arthralgias, Denies joint swelling, Reports numbness and Reports tingling Neuro Details: + left lower extremity numbness and tingling Denies Abnormal speech present, Denies behavioral changes, Denies vertigo, Denies dizziness, Denies headache(s), Denies loss of vision, Denies memory loss, Reports numbness and Reports tingling Psych Denies anxiety, Denies behavioral changes, Denies depression, Denies memory loss and Denies panic attacks Jose/Lymph Denies easy bleeding and Denies easy bruising Aller/Immun Denies wheezing Physical exam (Primary Care) Vital Signs: Last Vital Signs Pulse 96 07/24/23 13:45 BP 108/68 07/24/23 13:45 Pulse Ox 95 07/24/23 13:45 Oxygen Delivery Method Room Air 07/24/23 13:45 BMI result Body Mass Index 22.9 Tobacco/Smoking Status: Tobacco use Status Tobacco use date assessed 09/23/22 07/24/23 13:45 Patient Tobacco Use Status Current everyday Tobacco 07/24/23 13:45 Tobacco use type Cigarette 07/24/23 13:45 e-Cigarette/Vaping Use Never Used 07/24/23 13:45 Thrive Assessment: Date of Thrive Assessment Date Thrive assessed 09/23/22 07/24/23 13:45 Const General: healthy appearing, no acute distress, alert and awake Nutritional Appearance: well nourished Orientation/consciousness: oriented to person, oriented to place and oriented to time HENMT Ears: TM's normal bilaterally General nose exam: Normal nasal mucous membranes and turbinates present Eyes Conjunctivae: conjunctivae normal Sclerae: sclerae normal Pupils: Equal, round and reactive pupils present Neck Neck: Yes no lymphadenopathy and Yes no JVD Thyroid: Thyroid normal Carotids: no bruits Resp Effort & Inspection: normal respiratory effort and not tachypneic Auscultation: no crackles, no rales, no rhonchi and no wheezes Cardio Rate: regular rate Rhythm: regular rhythm Heart sounds: no murmurs and normal S1 and S2 GI Palpation (GI): Soft to palpation, nontender, no hepatomegaly and no splenomegaly Auscultation: normal bowel sounds Skin General skin exam: no rashes or lesions noted and dry skin Neuro General: oriented to person, oriented to place and oriented to time Cranial nerves: Yes Equal, round and reactive pupils present Speech: No Abnormal speech present Gait exam (Neuro): Normal gait present Motor exam (neuro): no tremor noted Extrem Right upper extremity: full ROM Left upper extremity: full ROM Right lower extremity: full ROM; no edema Left lower extremity: full ROM; no edema Psych Mental Status: mental status grossly normal Speech and movement: Normal speech and movement present Affect: normal affect Attitude: cooperative Thought process: Normal thought process present Office Procedures Flu Questionnaire Does the patient have a severe egg allergy?: No Does the patient have severe life threatening allergies?: No Does the patient have a fever or illness today?: No Has the patient ever had Guillain-[place] Syndrome?: No Has the patient ever had any past reaction to a flu shot?: No Immunizations flu vacc [id number] 6mos up(PF) 60 mcg(15 mcgx4)/0.5 mL IM syringe Performing Provider: Filemon Sy PA-C Performing Location: [facility] Administered by: ED Cordova on 07/24/23 14:33 Dose Route Admin Location Dispensed Lot Number Expiration Date NDC Invoice Classification Clerk 0.5 mL IM Left Deltoid 0.5 mL [id number] 02/18/24 60230-321-66 [employer] VIS Given Date VIS Provided VIS Publication Date 07/24/23 Single Vaccine 21 Eligibility Eligibility Date Funding Source Not [facility] Eligible 07/24/23 Private Assessment and Plan Assessment & Plan (1) Neuropathy: Code(s): G62.9 - Polyneuropathy, unspecified Plan: As per HPI patient does get intermittent numbness and tingling in her left lower extremity. She does report this often happens as she spends a lot of time sitting on the toilet due to her GI issues. Advised on a modified raised toilet seat to help reduce the occurrence of positional neuropathy while sitting on the toilet. (2) Constipation: Code(s): K59.00 - Constipation, unspecified Qualifiers: Constipation type: slow transit constipation Qualified Code(s): K59.01 - Slow transit constipation Plan: Unclear cause of patient's constipation though will supply patient with lactulose to use for his laxative affect. Advised to increase her fiber and fluid in her diet. Advised on a modified raised toilet seat Orders: Orders Influenza [id number] Immunization 07/24/23 Z23 - Encounter for immunization Medications: New lactulose 20 grams (30 mL) PO DAILY 30 days PRN 900 mL 0RF laxative effect K59.00 - Constipation, unspecified Coding Level of Care Code Est Pt Level 3 (44201) Diagnoses Neuropathy G62.9 Slow transit constipation K59.01 Constipation type: slow transit constipation
== END 2023-07-24 14:28 | disposition home or self-care (01) ==
PROVIDERS: PCP Nurse Practitioner Family; Visit Provider Physician Assistant
DX: Z23 Encounter for immunization (principal)
CPT/HCPCS: 90471; 90686; 99213

== ENCOUNTER 2023-08-19 07:10 | Outpatient (REF) | payer OTHER, SELFPAY ==
[2023-08-19 07:20] LABS: MANUAL DIFF FLAG NO
[2023-08-19 07:45] LABS: Basophils Absolute Auto 0.1 X10*3/uL (0.0-0.2); Basophils Percent Auto 0.6 % (0-2); Eosinophils Absolute Auto 0.1 X10*3/uL (0.0-0.4); Eosinophils Percent Auto 0.9 % (0-4); Hematocrit 38.2 % (37.0-47.0); Hemoglobin 13.2 g/dl (12.0-16.0); Imm Gran Abs Auto 0.04 X10*3/uL (0.00-0.03); Imm Gran Pct Auto 0.3 % (0.0-0.4); Lymphocytes Absolute Auto 1.9 X10*3/uL (1.2-4.9); Lymphocytes Percent Auto 16.9 % (20-40); Mean Corpuscular HGB Conc 34.6 g/dl (31.0-35.0); Mean Corpuscular Hemoglobin 31.5 pg (27.0-33.0); Mean Corpuscular Volume 91.2 fL (80.0-98.0); Mean Platelet Volume 9.8 fL (9.4-12.3); Monocytes Absolute Auto 0.4 X10*3/uL (0.1-1.2); Monocytes Percent Auto 3.5 % (2-11); Neutrophils Absolute Auto 8.9 x10*3/uL (2.0-8.3); Neutrophils Percent Auto 77.8 % (45-73); Platelet Count 460 X10*3/uL (160-400); Red Blood Count 4.19 X10*6/uL (4.20-5.50); Red Cell Distribution Width 14.1 % (11.0-16.0); White Blood Count 11.5 X10*3/uL (4.8-10.8)
[2023-08-19 08:20] LABS: Alanine Aminotransferase 8 U/L (0-31); Albumin Level 3.7 g/dL (3.5-5.0); Alkaline Phosphatase 73 U/L (39-117); Anion Gap 16 (12-20); Aspartate Amino Transferase 13 U/L (5-31); Bilirubin Total 0.4 mg/dL (0.0-1.0); Blood Urea Nitrogen 10 mg/dL (9-16); Calcium 9.6 mg/dL (8.4-10.2); Carbon Dioxide 27 mmol/L (22-29); Chloride 102 mmol/L (96-108); Estimated Glomerular Filt Rate > 60; Glucose Fasting 153 mg/dL (60-99); Potassium 2.8 mmol/L (3.3-5.1); Sodium 142 mmol/L (135-145); Total Protein 7.2 g/dL (6.5-8.0)
[2023-08-19 08:37] LABS: Thyroid Stimulating Hormone 0.39 uIU/mL (0.32-4.0)
[2023-08-21 03:58] LABS: HIV AB/AG Nonreactive (Nonreactive); HIV Num 1 0.05 S/CO (0.00-0.99)
== END 2023-08-19 07:11 | disposition home or self-care (01) ==
LOC: HO.LAB 07:10
PROVIDERS: PCP Internal Medicine; Visit Provider Internal Medicine
DX: R63.4 Abnormal weight loss (principal)
CPT/HCPCS: 36415; 80053; 84443; 85025; 87389

== ENCOUNTER 2023-08-28 14:04 | Outpatient (AMB) | payer OTHER, SELFPAY ==
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
[2023-08-28 14:12] VITALS: BP 120/78; PULSE 83; O2SAT 96; BMI 21.9
== END 2023-08-28 14:44 | disposition home or self-care (01) ==
PROVIDERS: PCP Internal Medicine; Referring Provider Internal Medicine; Visit Provider Nurse Practitioner Family
DX: M54.51 Vertebrogenic low back pain (principal); M47.816 Spondylosis without myelopathy or radiculopathy, lumbar region; M51.36 Other intervertebral disc degeneration, lumbar region; M53.3 Sacrococcygeal disorders, not elsewhere classified; M48.061 Spinal stenosis, lumbar region without neurogenic claudication
CPT/HCPCS: 99204

== ENCOUNTER → 2023-08-28 14:04 | Outpatient (BNVA) | payer OTHER, SELFPAY | PROVIDERS: PCP Internal Medicine; Referring Provider Internal Medicine; Visit Provider Nurse Practitioner Family | DX: M54.51 Vertebrogenic low back pain (principal); M47.816 Spondylosis without myelopathy or radiculopathy, lumbar region; M51.36 Other intervertebral disc degeneration, lumbar region; M53.3 Sacrococcygeal disorders, not elsewhere classified; M48.061 Spinal stenosis, lumbar region without neurogenic claudication | CPT/HCPCS: 99202 ==

== ENCOUNTER 2023-09-11 13:57 | Outpatient (REF) | payer OTHER, SELFPAY ==
--- NOTE | ~2023-09-11 | MM_ITS ---
EXAMINATION: MM SCREENING DIGITAL BREAST TOMOSYNTHESIS, BILATERAL CLINICAL INFORMATION: Screening. Asymptomatic. COMPARISON: Mammography: This study is compared with prior exams dating back to 2015. TECHNIQUE: Digital breast tomosynthesis is performed in both the craniocaudal and mediolateral oblique views along with computer-aided detection (CAD). Synthesized 2D images are generated from the tomosynthesis. FINDINGS: The breasts are heterogeneously dense, which may obscure small masses (ACR BI-RADS breast composition Category c). There are no significant masses, abnormal calcifications, or other abnormalities. MM/MM tomosynthesis screening BI IMPRESSION: No mammographic evidence of malignancy. ASSESSMENT: BI-RADS BI-RADS 1 - Negative RECOMMENDATION: Routine annual mammography screening. 1 year F/U This examination should not preclude the clinical evaluation of a suspicious palpable abnormality. This patient's information was entered into a reminder system with a target due date for their next mammogram.
== END 2023-09-11 13:58 | disposition home or self-care (01) ==
LOC: HO.MAMMO 13:57
PROVIDERS: PCP Internal Medicine; Visit Provider Internal Medicine
DX: Z12.31 Encounter for screening mammogram for malignant neoplasm of breast (principal)
CPT/HCPCS: 77063; 77067

== ENCOUNTER → 2023-09-11 14:15 | Outpatient (BNV) | payer OTHER, SELFPAY | PROVIDERS: PCP Internal Medicine; Visit Provider Radiology Diagnostic Radiology | DX: Z12.31 Encounter for screening mammogram for malignant neoplasm of breast (principal) | CPT/HCPCS: 77063; 77067 ==

== ENCOUNTER 2023-10-03 13:05 | Outpatient (AMB) | payer OTHER, SELFPAY ==
--- NOTE | 2023-10-03 13:11 | MHC.PC.OV ---
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: No Accompanied by: Self / Same As Patient Allergies latex [LATEX] Allergy (Mild, Verified 10/03/23 13:23) RASH codeine [CODEINE] Adverse Reaction (Intermediate, Verified 10/03/23 13:23) UPSET STOMACH naproxen [NAPROXEN] Adverse Reaction (Intermediate, Verified 10/03/23 13:23) VOMITING Medication List - Last Reconciled 10/03/23 by Jeimy Gill MD albuterol sulfate 90 mcg/actuation (Ventolin HFA) 2 puffs inhalation Q4-6H PRN calcium carbonate-vitamin D3 500 mg-10 mcg (400 unit) (Oyster Shell Calcium-Vitamin D3) 1 tab PO DAILY 90 days cyclobenzaprine 10 mg PO BEDTIME PRN 3 months escitalopram oxalate 20 mg PO DAILY fluticasone propionate 50 mcg/actuation (Flonase Allergy Relief) 1 spray intranasal DAILY food supplemt, lactose-reduced (Ensure Plus) 1 ea PO BID 25 days food supplemt, lactose-reduced (Ensure oral liquid) ea PO gabapentin 800 mg PO TID 3 months glucosamine-chondroitin 750-600 mg 1 tab PO BID ibuprofen 800 mg PO TID PRN 30 days lactulose 20 grams (30 mL) PO DAILY PRN 30 days lidocaine 5% 1 patch topical DAILY PRN 30 days loperamide (Imodium A-D) 2 mg PO Q4H PRN es-dwt-omeun-calcium carb-K1 400 mcg-500 mg calcium-20 mcg (Women's 50 Plus Multivitamin) 1 tab PO DAILY omeprazole 20 mg PO DAILY simethicone (Gas Relief (simethicone)) 80 mg PO TID-QID PRN trazodone 200 mg PO BEDTIME PRN [Tumeric Curcumin Complex 1 cap PO DAILY] valacyclovir 1,000 mg PO DAILY 90 days Tobacco use date assessed: 10/03/23 Dental Screening Dental Screen Date: 10/03/23 Did you have a dental visit in the last 12 months?: Yes Did you have a dental problem in the last 6 months where you did not have access to dental care?: No Was dental information given to patient?: Patient has dentist HPI HPI Comments History of Present Illness Details This is a 58-year-old female with moderate major depression that comes for her physical exam. On escitalopram for her depression and she follows with counseling and has no suicidal thoughts. Mammogram done August 2023. Pap smear done 2022. Colonoscopy done 2021. Walks with a cane for gait stability due to severe chronic low back pain. She is aware that she has prediabetes and fasting blood glucose will be repeated. Advised to cut down on drinking alcohol. [facility] Medical History (Updated 10/03/23 @ 13:50 by Jeimy Gill MD) Malnutrition Tobacco use Menopause Bilateral ovarian cysts Submucous uterine fibroid Nicotine dependence, cigarettes, uncomplicated WESTLEY (generalized anxiety disorder) Moderate recurrent major depression Chronic GERD Memory loss Leukocytosis Constipation by delayed colonic transit Abdominal bloating Fibromyalgia Surgical History History of lymph node excision History of endoscopy History of colonoscopy History of eye surgery Family History Father No problems noted. Mother Hypertension Diabetes Maternal Grandmother Cervical cancer Ovarian cancer Family/Other Mental health disorder Substance use disorder Social History Housing: Apartment Alcohol intake: current Alcohol intake frequency: a few times a week Alcohol type: wine Patient Tobacco Use Status: Current everyday Tobacco user Tobacco use type: Cigarette Cigarette Packs Per Day: 1 Years Smoked: (onset 17yo, 1ppd x 40yrs, 30+PYH) e-Cigarette/Vaping Use: Never Used Second Hand Smoke Exposure: No Substance Use Type: Crack/Cocaine, Marijuana and Other service: No Current occupational status: unemployed and disabled 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 1. Little interest or pleasure in doing things: more than half the days 2. Feeling down, depressed, or hopeless: nearly every day 3. Trouble falling or staying asleep, or sleeping too much: several days 4. Feeling tired or having little energy: nearly every day 5. Poor appetite or overeating: not at all 6. Feeling bad about yourself - or that you are a failure or have let yourself or your family down: nearly every day 7. Trouble concentrating on things, such as reading the newspaper or watching television: more than half the days 8. Moving or speaking so slowly that other people could have noticed. Or the opposite - being so fidgety or restless that you have been moving around a lot more than usual: nearly every day 9. Thoughts that you would be better off or of hurting yourself in some way: not at all Total score: 17 Depression Screening Interpretation: Positive (no suicidal thoughts) Depression Screening Follow-up: Existing condition Depression Screening Done: Yes 49983 - PHQ-9 Billing: Yes Source: Developed by Drs. Trevon Bowden, Kathleen Oconnor, German Quintero and colleagues, with an educational zeke from [employer]. Thrive Questionnaire Date Thrive assessed: 10/03/23 I am a: Patient What is your living situation today?: I have a steady place to live Within the past 12 months, did the food you bought not last and you didn't have the money to get more?: Never true Within the past 12 months, did you worry whether your food would run out before you got money to buy more?: Never true Do you have trouble paying for medicines?: No Do you have trouble getting transportation to medical appointments?: No Do you have trouble paying your heating and electricity bill?: No Do you have trouble taking care of your child, family member or friend?: No Do you have trouble with day-to-day activities such as bathing, preparing meals, shopping, managing finances, etc.?: Yes Are you currently unemployed and looking for a job?: No Are you interested in more education?: No Please select the resources that you would like help with: None THRIVE Score: 0 AUDIT C Alcohol Use Questionnaire (AUDIT-C) 1. How often do you have a drink containing alcohol?: 2-3 times a week 2. How many drinks containing alcohol do you have on a typical day when you are drinking?: 1 or 2 3. How often do you have six or more drinks on one occasion?: Never Total Score: 3 Score Reviewed/Action Taken: Yes WESTLEY-7 AMB Questionnaire WESTLEY-7 Date WESTLEY - 7 assessed: 10/03/23 Feeling nervous, anxious, or on edge: 3 = Nearly every day Not being able to stop or control worryin = More than half the days Worrying too much about different things: 3 = Nearly every day Trouble relaxin = Nearly every day Being so restless that it is hard to sit still: 0 = Not at all Becoming easily annoyed or irritable: 3 = Nearly every day Feeling afraid as if something awful might happen: 3 = Nearly every day Total WESTLEY-7 score (0-4 normal; 5-9 mild; 10-14 moderate; 15-21 severe): 17 Source: Developed by Drs. Trevon Bowden, Kathleen Oconnor, German Quintero and colleagues, with an educational zeke from [employer]. WESTLEY-7 Assessment Billing WESTLEY-7 Assessment Tool: WESTLEY-7 Assessment 76635 Review of Systems Const All systems reviewed & are unremarkable except as noted in HPI and below Eyes Reports no additional complaints, Denies change in vision and Denies other visual disturbances Card Denies chest pain at rest, Denies chest pain with activity, Denies edema, Denies irregular heart rhythm, Denies claudication, Denies dyspnea, Denies dyspnea on exertion, Denies orthopnea, Denies paroxysmal nocturnal dyspnea and Denies slow heart rate Resp Denies cough, Denies dyspnea and Denies dyspnea on exertion GI Denies abdominal pain, Denies change in bowel habits, Denies excessive flatus, Denies nausea and Denies vomiting Denies urinary incontinence, Denies urinary hesitancy and Denies urinary urgency Musc Denies abnormal gait, Reports back pain, Denies atrophy, Denies deformity and Denies limited range of motion Skin/Breast Denies bleeding lesions, Denies changing lesions and Denies rash Neuro Denies abnormal gait and Denies lack of coordination Physical exam (Primary Care) Vital Signs: Last Vital Signs BP 110/78 10/03/23 13:13 BMI result Body Mass Index 24.3 Tobacco/Smoking Status: Tobacco use Status Tobacco use date assessed 10/03/23 10/03/23 13:20 Patient Tobacco Use Status Current everyday Tobacco 10/03/23 13:20 Tobacco use type Cigarette 02/13/24 13:20 e-Cigarette/Vaping Use Never Used 10/03/23 13:20 PHQ-9: PHQ-9 Score PHQ-9: Total score 17 10/03/23 13:20 Depression Screening Interpretation: Positive (no suicidal thoughts) Depression Screening Follow-up: Existing condition Thrive Assessment: Date of Thrive Assessment Date Thrive assessed 10/03/23 10/03/23 13:22 Const Orientation/consciousness: patient oriented x3 Limitations: ambulation with cane HENMT Head: Yes normal to inspection, Yes normocephalic and Yes atraumatic Ears: external ears normal Eyes General: appearance normal, both eyes and all related structures Eyelids: Yes eyelids normal Conjunctivae: conjunctivae normal Neck Neck: Yes normal visual inspection and Yes supple Resp Effort & Inspection: normal respiratory effort Auscultation: clear to auscultation bilaterally Cardio Jugular venous distension: no JVD Rate: regular rate Rhythm: regular rhythm Heart sounds: S1 normal heart sound present and S2 normal heart sound present GI Inspection: Yes normal to inspection Palpation (GI): Soft to palpation and nontender Auscultation: normal bowel sounds Skin General skin exam: no rashes or lesions noted Neuro General: patient oriented x3 and no focal motor deficits Extrem General: Yes full ROM Psych Affect: Sad affect present Attitude: Avoids eye contact (attititude/behavior) Assessment and Plan Assessment & Plan (1) Physical exam: Code(s): Z00.00 - Encounter for general adult medical examination without abnormal findings Plan: Repeat in a year. (2) Moderate recurrent major depression: Code(s): F33.1 - Major depressive disorder, recurrent, moderate Plan: Continue escitalopram at bedtime. Orders: Orders Vitamin D 25-OH Total Today E55.9 - Vitamin D deficiency, unspecified Lipid Panel Today Z00.00 - Encounter for general adult medical examination without abnormal findings Comprehensive [place]. Panel Fast Today Z00.00 - Encounter for general adult medical examination without abnormal findings Coding Level of Care Code Est Pt Prev Care 40-64y(57879) Diagnoses Physical exam Z00.00 Moderate recurrent major depression F33.1 Additional Codes WESTLEY-7 Assessment Billing - WESTLEY-7 Assessment Tool: WESTLEY-7 Assessment [id number] ([id number]) Time Spent (min) 35
[2023-10-03 13:13] VITALS: BP 110/78; BMI 24.3
== END 2023-10-03 13:46 | disposition home or self-care (01) ==
PROVIDERS: Visit Provider Internal Medicine
DX: Z00.00 Encounter for general adult medical examination without abnormal findings (principal); F33.1 Major depressive disorder, recurrent, moderate; F17.210 Nicotine dependence, cigarettes, uncomplicated
CPT/HCPCS: 96127; 99396

== ENCOUNTER 2023-11-15 18:58 | Outpatient (REF) | payer OTHER, SELFPAY ==
--- NOTE | ~2023-11-15 | MR_ITS ---
EXAMINATION: MR LUMBAR SPINE WITHOUT CONTRAST CLINICAL INFORMATION: Intervertebral disc degeneration of the lumbar spine. COMPARISON: Lumbar spine radiograph 02/01/2022. Lumbar spine MRI 08/18/2020. TECHNIQUE: MRI of the lumbar spine was obtained using routine sequences without contrast. FINDINGS: There is grade 1 anterolisthesis of L3 on L4 and L4 on L5. Vertebral body heights are preserved. There are mixed degenerative endplate changes at L4-L5. There is loss of intervertebral disc height and T2 signal intensity at multiple levels related to disc degeneration. The tip of the conus medullaris is located at L1. No mass effect on the conus. Visualized distal cord signal intensity is normal. At L1-L2 the annular contour is normal. No canal or neuroforaminal compromise. At L2-L3 there is a bulging disc. Bilateral facet degenerative change. Mild canal stenosis. Asymmetric narrowing of the left subarticular zone causes abutment of the left traversing L3 nerve roots. No foraminal nerve root compression. At L3-L4 there is a pseudodisc bulge. Advanced bilateral facet degenerative change. Moderate to severe canal stenosis. Asymmetric narrowing of the left subarticular zone causing compression of the left traversing L4 nerve roots. Mild mass effect on the left L3 foraminal nerve root. At L4-L5 there is a diffusely bulging disc. Advanced facet degenerative change. Mild canal stenosis. Asymmetric narrowing of the right subarticular zone causes displacement and possible compression of the right traversing L5 nerve roots. Mild mass effect on the right L4 foraminal nerve root. At L5-S1 there is a bulging disc. Bilateral facet degenerative change. No canal stenosis. No mass effect on the traversing or foraminal nerve roots. Limited visualization of the retroperitoneal anatomy reveals no abnormal finding. Psoas and paraspinal muscle groups are symmetric. MR/MR lumbar spine wo con IMPRESSION: There is multilevel degenerative spondylosis of the lumbar spine with grade 1 anterolisthesis of L3 on L4 and L4 on L5 related to facet degenerative changes at these 2 levels. Moderate to severe canal stenosis at L3-L4. Mild canal stenosis at L2-L3 and L4-L5. There are varying degrees of mass effect on the traversing and foraminal segments of the nerve roots as described above.
== END 2023-11-15 18:59 | disposition home or self-care (01) ==
LOC: HO.MRI 18:58
PROVIDERS: PCP Internal Medicine; Visit Provider Nurse Practitioner Family
DX: M51.36 Other intervertebral disc degeneration, lumbar region (principal); M47.816 Spondylosis without myelopathy or radiculopathy, lumbar region; M54.51 Vertebrogenic low back pain; M48.061 Spinal stenosis, lumbar region without neurogenic claudication
CPT/HCPCS: 72148

== ENCOUNTER 2023-11-21 13:50 | Outpatient (AMB) | payer OTHER, SELFPAY ==
--- NOTE | 2023-11-21 13:57 | A.OFFVIS_ITS ---
Intake Vital Signs 3 11/21/23 14:01 Height 5 ft 7 in Weight 153 lb 6 oz BMI 24.0 BP 114/67 Blood Pressure Location Lt brachial Position Sitting Pulse 99 Intake Visit Reasons: Mass right ear Intake Note: Patient is seen in office for evaluation and treatment of a mass of the right ear. 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 Lesion was 1st identified 4 years ago and has gradually increased in size. She is able to squeeze the lesion and produce whitish discharge. She reports the liquid is foul-smelling and she is very embarrassed about the smell. She is requesting excision of this mass. [facility] Medical History Malnutrition Tobacco use Menopause Bilateral ovarian cysts Submucous uterine fibroid Nicotine dependence, cigarettes, uncomplicated WESTLEY (generalized anxiety disorder) Moderate recurrent major depression Chronic GERD Memory loss Leukocytosis Constipation by delayed colonic transit Abdominal bloating Fibromyalgia Surgical History History of lymph node excision History of endoscopy History of colonoscopy History of eye surgery Family History Father No problems noted. Mother Hypertension Diabetes Maternal Grandmother Cervical cancer Ovarian cancer Family/Other Mental health disorder Substance use disorder Social History Housing: Apartment Alcohol intake: current Alcohol intake frequency: a few times a week Alcohol type: wine Patient Tobacco Use Status: Current everyday Tobacco user Tobacco use type: Cigarette Cigarette Packs Per Day: 1 Years Smoked: (onset 17yo, 1ppd x 40yrs, 30+PYH) e-Cigarette/Vaping Use: Never Used Second Hand Smoke Exposure: No Substance Use Type: Crack/Cocaine, Marijuana and Other service: No Current occupational status: unemployed and disabled 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 Sexual orientation: Straight/Heterosexual Gender identity: Female Cognitive needs: Yes (cane/walker) Hearing needs: No Vision needs: No Review of Systems Const All systems reviewed & are unremarkable except as noted in HPI and below Denies chills, Denies fever(s), Denies headache(s), Denies poor appetite and Denies weakness ENT Denies headache(s) Card Denies chest pain, Denies irregular heart rhythm, Denies palpitations and Denies dyspnea Resp Denies cough, Denies excessive phlegm production and Denies dyspnea GI Denies abdominal pain, Denies bloating, Denies change in bowel habits, Denies constipation, Denies heartburn, Denies diarrhea, Denies nausea and Denies vomiting Denies urinary frequency Musc Denies back pain, Denies muscle weakness and Denies numbness Skin/Breast Denies changing lesions and Denies unusual bruising Neuro Denies headache(s), Denies numbness, Denies paresthesias and Denies weakness Psych Denies anxiety and Denies depression Endo Denies palpitations Jose/Lymph Denies lymphadenopathy Physical Exam Const General: cooperative and no acute distress Nutritional Appearance: well nourished Orientation/consciousness: patient oriented x3 Limitations: no limitations HEENT Head: Yes normocephalic and Yes atraumatic Ears: hearing grossly normal bilaterally Outer ear/TM images: 2 1. 1 cm mass of the right earlobe without skin ulceration or discoloration. Lesion is tender to palpation but not fluctuant. Resp Effort & Inspection: normal respiratory effort, no audible wheezes, no cough and no respiratory distress Cardio Jugular venous distension: no JVD GI Inspection: Yes normal to inspection Skin Other: Warm, dry, no rash Neuro General: patient oriented x3 Extrem General: Yes no clubbing, cyanosis or edema Assessment & Plan Assessment & Plan (1) Epidermal inclusion cyst: Code(s): L72.0 - Epidermal cyst Plan 58-year-old female patient with a gradually enlarging lesion of the right earlobe possibly a an epidermal inclusion cyst. I recommended an excision under anesthesia given her anxiety regarding the surgical procedure. After discussion of the procedure, risks, and alternatives, she consents to the excision of the right ear mass. She will be scheduled as a short-stay surgery. Coding Level of Care Code New Pt Level 4 (83563) Diagnoses Epidermal inclusion cyst L72.0
[2023-11-21 14:01] VITALS: BP 114/67; PULSE 99; BMI 24.0
== END 2023-11-21 14:45 | disposition home or self-care (01) ==
LOC: HO.HGS 13:50
PROVIDERS: PCP Internal Medicine; Visit Provider Surgery
DX: L72.0 Epidermal cyst (principal)
CPT/HCPCS: 99204

== ENCOUNTER → 2023-11-21 13:50 | Outpatient (BNVA) | payer OTHER, SELFPAY | PROVIDERS: PCP Internal Medicine; Visit Provider Surgery | DX: L72.0 Epidermal cyst (principal) | CPT/HCPCS: 99202 ==

== ENCOUNTER 2023-12-11 13:45 | Outpatient (AMB) | payer OTHER, SELFPAY ==
[2023-12-11 13:46] VITALS: BMI 24.6
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
== END 2023-12-11 14:08 | disposition home or self-care (01) ==
LOC: HO.PMC 13:45
PROVIDERS: PCP Internal Medicine; Visit Provider Nurse Practitioner Family
DX: M51.36 Other intervertebral disc degeneration, lumbar region (principal); M48.061 Spinal stenosis, lumbar region without neurogenic claudication; M43.16 Spondylolisthesis, lumbar region; M25.551 Pain in right hip; M25.552 Pain in left hip; M47.816 Spondylosis without myelopathy or radiculopathy, lumbar region; M53.3 Sacrococcygeal disorders, not elsewhere classified
CPT/HCPCS: 99214

== ENCOUNTER → 2023-12-11 13:45 | Outpatient (BNVA) | payer OTHER, SELFPAY | PROVIDERS: PCP Internal Medicine; Visit Provider Nurse Practitioner Family ==

== ENCOUNTER → 2024-02-07 13:35 | Day surgery (SDC) | payer OTHER, SELFPAY ==
[2023-12-25 14:07] VITALS: BMI 24.0
--- NOTE | 2023-12-26 14:58 | HO.ANESPROP2 ---
HPI - Anesthesia Eval Consult details Narrative: 58yo F for Right Excision Mass on Ear PMFSH Active Problems Active Problems: All Active Problems Bilateral hip pain (Acute) Spondylolisthesis, lumbar region (Acute) Epidermal inclusion cyst (Acute) Hand pain (Acute) Physical exam (Acute) Lumbar spinal stenosis (Acute) Sacroiliac joint pain (Acute) Lumbar degenerative disc disease (Acute) Lumbar spondylosis (Acute) Vertebrogenic low back pain (Acute) Weight loss (Acute) Constipation (Acute) Heart palpitations (Acute) Neuropathy (Acute) Tobacco use (Acute) Alcohol abuse (Acute) Chronic back pain (Acute) Arthritis of carpometacarpal (CMC) joint of left thumb (Acute) Left radial nerve palsy (Acute) Left wrist pain (Acute) Skin lesions (Acute) Spondylosis of lumbar region without myelopathy or radiculopathy (Acute) Bilateral primary osteoarthritis of hip (Acute) Menopause (Acute) Bilateral ovarian cysts (Acute) Submucous uterine fibroid (Acute) Nicotine dependence, cigarettes, uncomplicated (Acute) Leukocytosis (Acute) Memory loss (Acute) Chronic GERD (Acute) Abdominal bloating (Acute) Constipation by delayed colonic transit (Acute) Moderate recurrent major depression (Acute) WESTLEY (generalized anxiety disorder) (Acute) Fibromyalgia (Acute) Past Medical History Medical History (Updated 12/25/23 @ 11:47 by Izabela Yoon RN) Anxiety Alcohol abuse Malnutrition Menopause Bilateral ovarian cysts Submucous uterine fibroid Nicotine dependence, cigarettes, uncomplicated WESTLEY (generalized anxiety disorder) Moderate recurrent major depression Chronic GERD Memory loss Leukocytosis Constipation by delayed colonic transit Abdominal bloating Fibromyalgia Family History Family History Father No problems noted. Mother Hypertension Diabetes Maternal Grandmother Cervical cancer Ovarian cancer Family/Other Mental health disorder Substance use disorder Family history of problems with anesthesia: No Surgical History Surgical History History of lymph node excision History of endoscopy History of colonoscopy History of eye surgery History of Problems with Anesthesia: No Social History Social History Housing: Apartment Alcohol intake: current Alcohol intake frequency: a few times a week Alcohol type: wine Patient Tobacco Use Status: Current everyday Tobacco user Tobacco use type: Cigarette Cigarette Packs Per Day: 1 Cigarettes Per Day: 20.0 Years Smoked: 40 e-Cigarette/Vaping Use: Never Used Second Hand Smoke Exposure: No Substance Use Type: Crack/Cocaine, Marijuana and Other service: No Current occupational status: unemployed and disabled 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 Sexual orientation: Straight/Heterosexual Gender identity: Female Cognitive needs: Yes (cane/walker) Hearing needs: No Vision needs: No Meds Allergies Allergy/AdvReac Type Severity Reaction Status Date / Time latex [LATEX] Allergy Mild RASH Verified 12/11/23 13:47 codeine [CODEINE] AdvReac Intermediate UPSET Verified 12/11/23 13:47 STOMACH naproxen [NAPROXEN] AdvReac Intermediate VOMITING Verified 12/11/23 13:47 Home Medications ?Medication ?Instructions ?Recorded ?Confirmed ?Last Taken ?Type trazodone 100 mg tablet 200 mg PO BEDTIME PRN Insomnia 08/03/21 12/25/23 Unknown History glucosamine-chondroitin 750 mg-600 1 tab PO BID 07/19/22 12/25/23 Unknown History mg tablet loperamide 2 mg capsule (Imodium 2 mg PO Q4H PRN loose stool 07/19/22 12/25/23 Unknown History A-D) [id number] ac 400 1 tab PO DAILY 07/19/22 12/25/23 Unknown History mcg-calcium carb 500 mg-vit K1 20 mcg tablet (Women's 50 Plus Multivitamin) Tumeric Curcumin Complex 1 cap PO DAILY 09/05/22 12/25/23 Unknown History escitalopram oxalate 20 mg tablet 20 mg PO DAILY 10/31/22 12/25/23 Unknown History food supplemt, lactose-reduced ea PO 12/15/22 10/03/23 Unknown History (Ensure oral liquid) clonazepam 1 mg tablet 1 mg PO TID PRN Anxiety 12/11/23 12/25/23 Unknown History fluoxetine 20 mg capsule 40 mg PO QAM 12/11/23 12/25/23 Unknown History hydroxyzine HCl 25 mg tablet 25 mg PO BID 12/11/23 12/25/23 Unknown History thiamine HCl (vitamin B1) 100 mg 100 mg PO DAILY 12/11/23 12/25/23 Unknown History tablet Exam Height,Weight and Vital Signs: Height 5 ft 7 in Weight 69.4 kg Pertinent Lab Results Pertinent Lab Results: Laboratory Tests 08/19/23 07:19 WBC 11.5 H Hgb 13.2 Hct 38.2 Plt Count 460 H D BUN 10 Creatinine 0.70 Assessment and Plan Assessment Anesthesia Assessment: Chart Reviewed Final Anesthetic Review Family History of Problems with Anesthesia: No History of Problems with Anesthesia: No
[2024-02-02 13:53] VITALS: BMI 24.0
--- NOTE | 2024-02-05 14:34 | HO.ANESPROP2 ---
HPI - Anesthesia Eval Consult details Narrative: 58yo F for Right Excision Mass on Ear Hx polysub abuse. Rehab from crack cocaine. Current ETOH and THC PMFSH Active Problems Active Problems: All Active Problems Bilateral hip pain (Acute) Spondylolisthesis, lumbar region (Acute) Epidermal inclusion cyst (Acute) Hand pain (Acute) Physical exam (Acute) Lumbar spinal stenosis (Acute) Sacroiliac joint pain (Acute) Lumbar degenerative disc disease (Acute) Lumbar spondylosis (Acute) Vertebrogenic low back pain (Acute) Weight loss (Acute) Constipation (Acute) Heart palpitations (Acute) Neuropathy (Acute) Tobacco use (Acute) Alcohol abuse (Acute) Chronic back pain (Acute) Arthritis of carpometacarpal (CMC) joint of left thumb (Acute) Left radial nerve palsy (Acute) Left wrist pain (Acute) Skin lesions (Acute) Spondylosis of lumbar region without myelopathy or radiculopathy (Acute) Bilateral primary osteoarthritis of hip (Acute) Menopause (Acute) Bilateral ovarian cysts (Acute) Submucous uterine fibroid (Acute) Nicotine dependence, cigarettes, uncomplicated (Acute) Leukocytosis (Acute) Memory loss (Acute) Chronic GERD (Acute) Abdominal bloating (Acute) Constipation by delayed colonic transit (Acute) Moderate recurrent major depression (Acute) WESTLEY (generalized anxiety disorder) (Acute) Fibromyalgia (Acute) Past Medical History Medical History (Updated 12/25/23 @ 11:47 by Izabela Yoon RN) Anxiety Alcohol abuse Malnutrition Menopause Bilateral ovarian cysts Submucous uterine fibroid Nicotine dependence, cigarettes, uncomplicated WESTLEY (generalized anxiety disorder) Moderate recurrent major depression Chronic GERD Memory loss Leukocytosis Constipation by delayed colonic transit Abdominal bloating Fibromyalgia Family History Family History Father No problems noted. Mother Hypertension Diabetes Maternal Grandmother Cervical cancer Ovarian cancer Family/Other Mental health disorder Substance use disorder Family history of problems with anesthesia: No Surgical History Surgical History History of lymph node excision History of endoscopy History of colonoscopy History of eye surgery History of Problems with Anesthesia: No Social History Social History Housing: Apartment Alcohol intake: current Alcohol intake frequency: a few times a week Alcohol type: wine Patient Tobacco Use Status: Current everyday Tobacco user Tobacco use type: Cigarette Cigarette Packs Per Day: 1 Cigarettes Per Day: 20.0 Years Smoked: 40 e-Cigarette/Vaping Use: Never Used Second Hand Smoke Exposure: No Substance Use Type: Crack/Cocaine, Marijuana and Other service: No Current occupational status: unemployed and disabled 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 Sexual orientation: Straight/Heterosexual Gender identity: Female Cognitive needs: Yes (cane/walker) Hearing needs: No Vision needs: No Meds Allergies Allergy/AdvReac Type Severity Reaction Status Date / Time latex [LATEX] Allergy Mild RASH Verified 12/11/23 13:47 codeine [CODEINE] AdvReac Intermediate UPSET Verified 12/11/23 13:47 STOMACH naproxen [NAPROXEN] AdvReac Intermediate VOMITING Verified 12/11/23 13:47 Home Medications ?Medication ?Instructions ?Recorded ?Confirmed ?Last Taken ?Type trazodone 100 mg tablet 200 mg PO BEDTIME PRN Insomnia 08/03/21 12/25/23 Unknown History glucosamine-chondroitin 750 mg-600 1 tab PO BID 07/19/22 12/25/23 Unknown History mg tablet loperamide 2 mg capsule (Imodium 2 mg PO Q4H PRN loose stool 07/19/22 12/25/23 Unknown History A-D) [id number]-[id number] ac 400 1 tab PO DAILY 07/19/22 12/25/23 Unknown History mcg-calcium carb 500 mg-vit K1 20 mcg tablet (Women's 50 Plus Multivitamin) Tumeric Curcumin Complex 1 cap PO DAILY 09/05/22 12/25/23 Unknown History escitalopram oxalate 20 mg tablet 20 mg PO DAILY 10/31/22 12/25/23 Unknown History food supplemt, lactose-reduced ea PO 12/15/22 10/03/23 Unknown History (Ensure oral liquid) clonazepam 1 mg tablet 1 mg PO TID PRN Anxiety 12/11/23 12/25/23 Unknown History fluoxetine 20 mg capsule 40 mg PO QAM 12/11/23 12/25/23 Unknown History hydroxyzine HCl 25 mg tablet 25 mg PO BID 12/11/23 12/25/23 Unknown History thiamine HCl (vitamin B1) 100 mg 100 mg PO DAILY 12/11/23 12/25/23 Unknown History tablet Exam Height,Weight and Vital Signs: Height 5 ft 7 in Weight 69.4 kg Assessment and Plan Assessment Anesthesia Assessment: Chart Reviewed Final Anesthetic Review Family History of Problems with Anesthesia: No History of Problems with Anesthesia: No
[2024-02-07 13:39] VITALS: BMI 24.2
--- NOTE | 2024-02-07 14:03 | PC.NURSE ---
patient cancelled due to taking pepto bismol about an hour ago per patient. also patient states she has colon problems and doesnt feel goo today. worse than she usually feels. anti by the bedside and patient was cancelled. crying. unsteady on feet. poor historian. also took chewable simethecone tablets unknown time today as well. brought patient down in wheelchair. blood was drawn only.
[2024-02-07 14:06] LABS: Alanine Aminotransferase 17 U/L (0-31); Albumin Level 4.5 g/dL (3.5-5.0); Alkaline Phosphatase 83 U/L (39-117); Anion Gap 17 (12-20); Aspartate Amino Transferase 19 U/L (5-31); Bilirubin Total 0.5 mg/dL (0.0-1.0); Blood Urea Nitrogen 16 mg/dL (9-16); Calcium 9.6 mg/dL (8.4-10.2); Carbon Dioxide 24 mmol/L (22-29); Chloride 104 mmol/L (96-108); Creatinine Clr Calc Pharmacy 75.4; Estimated Glomerular Filt Rate > 60; Glucose Fasting 116 mg/dL (60-99); Potassium 3.5 mmol/L (3.3-5.1); Sodium 141 mmol/L (135-145); Total Protein 7.9 g/dL (6.5-8.0)
== END ==
PROVIDERS: Nurse Practitioner; PCP Internal Medicine; Visit Provider Surgery
DX: L72.0 Epidermal cyst (principal); Z53.9 Procedure and treatment not carried out, unspecified reason
CPT/HCPCS: 36415; 80053

== ENCOUNTER 2024-02-16 11:06 | Outpatient (REF) | payer OTHER, SELFPAY ==
--- NOTE | ~2024-02-16 | XR_ITS ---
EXAMINATION: XR LUMBOSACRAL SPINE WITH OBLIQUES CLINICAL INFORMATION: Back pain. COMPARISON: MR lumbar spine 11/15/2023, x-ray lumbar spine 02/02/2024. TECHNIQUE: 5 views of the lumbar spine. FINDINGS: Dextroscoliosis of the lumbar spine. Advanced degenerative changes on very limited views of the bilateral hips. Advanced facet arthritis in the mid to lower lumbar spine. Advanced multilevel lumbar spondylosis. Mild loss of disc space height at L2-L3. Moderate loss of disc space height at L3-L4. Grade 1 anterolisthesis of L3 on L4 persists on flexion and extension views. Marked loss of disc space height with severe degenerative changes at L4-L5. Mild grade 1 anterolisthesis of L4 on L5 with flexion and extension. Moderate loss of disc space height at L4-L5. XR/XR lumbar spine 4V min IMPRESSION: Advanced multilevel lumbar spondylosis, most notable at L4-L5.
== END 2024-02-16 11:07 | disposition home or self-care (01) ==
LOC: HO.HOSX 11:06
PROVIDERS: PCP Internal Medicine; Visit Provider Physician Assistant
DX: M54.9 Dorsalgia, unspecified (principal)
CPT/HCPCS: 72110; 99202

== ENCOUNTER 2024-02-16 11:06 | Outpatient (AMB) | payer OTHER, SELFPAY ==
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
== END 2024-02-16 12:28 | disposition home or self-care (01) ==
PROVIDERS: PCP Internal Medicine; Visit Provider Physician Assistant
DX: M54.9 Dorsalgia, unspecified (principal)
CPT/HCPCS: 99204

== ENCOUNTER 2024-04-15 16:54 | Outpatient (AMB) | payer OTHER, SELFPAY ==
--- NOTE | 2024-04-15 16:57 | A.OFFPC_ITS ---
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: No Accompanied by: Friend Allergies latex [LATEX] Allergy (Mild, Verified 04/15/24 17:07) RASH codeine [CODEINE] Adverse Reaction (Intermediate, Verified 04/15/24 17:07) UPSET STOMACH naproxen [NAPROXEN] Adverse Reaction (Intermediate, Verified 04/15/24 17:07) VOMITING Medication List - Last Reconciled 04/15/24 by Jeimy Gill MD albuterol sulfate 90 mcg/actuation (Ventolin HFA) 2 puffs inhalation Q4-6H PRN calcium carbonate-vitamin D3 500 mg-10 mcg (400 unit) (Oyster Shell Calcium- Vitamin D3) 1 tab PO DAILY 90 days clonazepam 1 mg PO TID PRN cyclobenzaprine 10 mg PO BEDTIME PRN 3 months fluoxetine 40 mg PO QAM fluticasone propionate 50 mcg/actuation (Flonase Allergy Relief) 1 spray intranasal DAILY food supplemt, lactose-reduced (Ensure Plus) 1 ea PO BID 25 days food supplemt, lactose-reduced (Ensure oral liquid) ea PO gabapentin 800 mg PO TID 3 months glucosamine-chondroitin 750-600 mg 1 tab PO BID hydroxyzine HCl 25 mg PO BID ibuprofen 800 mg PO TID PRN 30 days lidocaine 5% 1 patch topical DAILY PRN 30 days loperamide (Imodium A-D) 2 mg PO Q4H PRN rx-hqi-tmoje-calcium carb-K1 400 mcg-500 mg calcium-20 mcg (Women's 50 Plus Multivitamin) 1 tab PO DAILY nicotine (polacrilex) 4 mg buccal Q8H PRN 30 days omeprazole 20 mg PO DAILY simethicone (Gas Relief (simethicone)) 80 mg PO TID-QID PRN thiamine HCl (vitamin B1) 100 mg PO DAILY trazodone 200 mg PO BEDTIME PRN [Tumeric Curcumin Complex 1 cap PO DAILY] valacyclovir 1,000 mg PO DAILY 90 days Tobacco use date assessed: 04/15/24 Dental Screening Dental Screen Date: 10/03/23 HPI HPI Comments History of Present Illness Details This is a 58-year-old female with moderate major depression, anxiety, COPD and alcoholism that comes today accompanied by friend which is a clinical airport operations supervisor in an unknown setting complaining of depression and loneliness and wanting to quit drinking alcohol. I will refer her to comprehensive Care Center. Depression and anxiety still present with fluoxetine and does not follows with Behavioral Health. Has COPD and was advised to quit smoking. Will order a long-acting inhaler. Says nebulizer solution improve her symptoms. Walks with a cane for gait stability due to chronic low back pain follow by pain management. No chest pain or shortness on breath. [facility] Medical History (Updated 04/15/24 @ 17:23 by Jeimy Gill MD) Anxiety Alcohol abuse Malnutrition Menopause Bilateral ovarian cysts Submucous uterine fibroid Nicotine dependence, cigarettes, uncomplicated WESTLEY (generalized anxiety disorder) Moderate recurrent major depression Chronic GERD Memory loss Leukocytosis Constipation by delayed colonic transit Abdominal bloating Fibromyalgia Surgical History H/O excision of mass (02/07/24) History of lymph node excision History of endoscopy History of colonoscopy History of eye surgery Family History Father No problems noted. Mother Hypertension Diabetes Maternal Grandmother Cervical cancer Ovarian cancer Family/Other Mental health disorder Substance use disorder Social History Housing: Apartment Alcohol intake: current Alcohol intake frequency: a few times a week Alcohol type: wine Patient Tobacco Use Status: Current everyday Tobacco user Tobacco use type: Cigarette Cigarette Packs Per Day: 1 Cigarettes Per Day: 20.0 Years Smoked: 40 e-Cigarette/Vaping Use: Never Used Second Hand Smoke Exposure: No Substance Use Type: Crack/Cocaine, Marijuana and Other service: No Current occupational status: unemployed and disabled 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 Trevon Bowden, Kathleen Oconnor, German Quintero and colleagues, with an educational zeke from [employer]. Review of Systems Const All systems reviewed & are unremarkable except as noted in HPI and below Card Denies chest pain at rest, Denies chest pain with activity, Denies edema, Denies irregular heart rhythm, Denies claudication, Denies dyspnea, Denies dyspnea on exertion, Denies orthopnea, Denies paroxysmal nocturnal dyspnea and Denies slow heart rate Resp Denies cough, Denies dyspnea and Denies dyspnea on exertion GI Denies abdominal pain, Denies change in bowel habits, Denies excessive flatus, Denies nausea and Denies vomiting Musc Reports back pain and Reports arthralgias Psych Reports abnormal sleep pattern, Reports anxiety and Reports depression Physical exam (Primary Care) Vital Signs: Last Vital Signs BP 118/70 04/15/24 16:58 BMI result Body Mass Index 24.4 Tobacco/Smoking Status: Tobacco use Status Tobacco use date assessed 04/15/24 04/15/24 17:03 Patient Tobacco Use Status Current everyday Tobacco 04/15/24 17:03 Tobacco use type Cigarette 04/15/24 17:03 e-Cigarette/Vaping Use Never Used 04/15/24 17:03 Are you ready to quit: No Tobacco cessation counseling provided: Yes Items discussed: Nicotine replacement Relapse Prevention: discussed extending NRT, discussed negative mood or depression after quitting and weight gain after smoking is common Number of minutes spent counselin CPT code: Less than 3 minutes Thrive Assessment: Date of Thrive Assessment Date Thrive assessed 10/03/23 04/15/24 17:03 Const Limitations: ambulation with cane Resp Effort & Inspection: normal respiratory effort Auscultation: clear to auscultation bilaterally Cardio Jugular venous distension: no JVD Rate: regular rate Rhythm: regular rhythm Heart sounds: S1 normal heart sound present and S2 normal heart sound present Extrem General: Yes full ROM Assessment and Plan Assessment & Plan (1) COPD (chronic obstructive pulmonary disease): Code(s): J44.9 - Chronic obstructive pulmonary disease, unspecified Plan: Start long-acting inhaler. Use rescue inhaler as needed. (2) Alcoholism: Code(s): F10.20 - Alcohol dependence, uncomplicated Plan: Referred to comprehensive Care Center. (3) Moderate recurrent major depression: Code(s): F33.1 - Major depressive disorder, recurrent, moderate Plan: Continue SSRIs. (4) WESTLEY (generalized anxiety disorder): Code(s): F41.1 - Generalized anxiety disorder Plan: Continue SSRIs. Orders: Referrals Addiction Medicine Referral F10.20 - Alcohol dependence, uncomplicated Medications: New fluticasone furoate-vilanterol 50-25 mcg/dose (Breo Ellipta) 1 inh inhalation Q24H 60 ea 6RF 60 days J44.9 - Chronic obstructive pulmonary disease, unspecified nebulizers (AeroEclipse II Nebulizer) As directed 1 ea 0RF J44.9 - Chronic obstructive pulmonary disease, unspecified albuterol sulfate 2.5 mg (3 mL) inhalation Q6H PRN 360 mL 0RF bronchospasm 30 days Coding Level of Care Code Est Pt Level 4 (70352) Complex EM visit Add On G2211 Diagnoses COPD (chronic obstructive pulmonary disease) J44.9 Alcoholism F10.20 Moderate recurrent major depression F33.1 WESTLEY (generalized anxiety disorder) F41.1 Time Spent (min) 23
[2024-04-15 16:58] VITALS: BP 118/70; BMI 24.4
== END 2024-04-15 17:43 | disposition home or self-care (01) ==
PROVIDERS: PCP Internal Medicine; Visit Provider Internal Medicine
DX: J44.9 Chronic obstructive pulmonary disease, unspecified (principal); F10.20 Alcohol dependence, uncomplicated; F33.1 Major depressive disorder, recurrent, moderate; F41.1 Generalized anxiety disorder
CPT/HCPCS: 99214; G2211

== ENCOUNTER 2024-04-17 16:38 | Outpatient (REF) | payer OTHER, SELFPAY | END 2024-04-17 16:39 | disposition home or self-care (01) | LOC: HO.HOSX 16:38 | PROVIDERS: Visit Provider Orthopaedic Surgery | DX: Z13.89 Encounter for screening for other disorder (principal) ==

== ENCOUNTER 2024-04-24 13:13 | Outpatient (AMB) | payer OTHER, SELFPAY ==
[2024-04-24 13:19] VITALS: BP 116/72; BMI 24.2
--- NOTE | 2024-04-24 13:19 | MHC.OFFVIS ---
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 Complaining of vulvovaginal irritation with vaginal odor Last Pap/HPV was negative in 12/11 Last Mammogram was BI-RADS 1 in 09/13 Last Colonoscopy was done in 12/10, the recommendation was to repeat in 5 years [facility] Medical History Anxiety Alcohol abuse Malnutrition Menopause Bilateral ovarian cysts Submucous uterine fibroid Nicotine dependence, cigarettes, uncomplicated WESTLEY (generalized anxiety disorder) Moderate recurrent major depression Chronic GERD Memory loss Leukocytosis Constipation by delayed colonic transit Abdominal bloating Fibromyalgia Surgical History H/O excision of mass (02/07/24) History of lymph node excision History of endoscopy History of colonoscopy History of eye surgery Family History Father No problems noted. Mother Hypertension Diabetes Maternal Grandmother Cervical cancer Ovarian cancer Family/Other Mental health disorder Substance use disorder Social History Housing: Apartment Alcohol intake: current Alcohol intake frequency: a few times a week Alcohol type: wine Patient Tobacco Use Status: Current everyday Tobacco user Tobacco use type: Cigarette Cigarette Packs Per Day: 1 Cigarettes Per Day: 20.0 Years Smoked: 40 e-Cigarette/Vaping Use: Never Used Second Hand Smoke Exposure: No Substance Use Type: Crack/Cocaine, Marijuana and Other service: No Current occupational status: unemployed and disabled 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 Sexual orientation: Straight/Heterosexual Gender identity: Female Cognitive needs: Yes (cane/walker) Hearing needs: No Vision needs: No Female Reproductive History Menstrual Date of last pap smear: 12/15/22 Date of Mammogram: 09/11/23 Review of Systems Const All systems reviewed & are unremarkable except as noted in HPI and below Card Reports as per HPI Resp Reports as per HPI GI Reports as per HPI and Reports no additional complaints Reports as per HPI Physical Exam Vital Signs: Last Vital Signs BP 116/72 04/24/24 13:19 BMI result Body Mass Index 24.2 Const General: cooperative, healthy appearing and comfortable Chest Chest palpation & inspection: normal inspection of the chest and normal palpation of entire chest wall Breast/axilla inspection: normal inspection of the breasts and normal inspection of the axillae Breast/axilla palpation: normal palpation of the breasts, normal palpation of the axillae and no axillary lymphadenopathy Resp Effort & Inspection: normal respiratory effort Auscultation: clear to auscultation bilaterally Percussion: percussion normal Cardio Palpation: normal PMI Rate: regular rate Rhythm: regular rhythm Heart sounds: no murmurs and no rubs Peripheral pulses: Peripheral pulses 2+ throughout GI Inspection: Yes normal to inspection Palpation (GI): Soft to palpation, nontender, no guarding, not rigid and No hepatosplenomegaly present Percussion: Yes normal to percussion Auscultation: normal bowel sounds Rectal Exam - Female: deferred General: Yes bladder normal to palpation External Female Exam: No lesion Speculum Exam - Vagina: normal appearance of the vagina, normal palpation, normal vaginal discharge and not erythematous Speculum Exam - Cervix: normal appearance of the cervix and normal palpation Bimanual exam- vagina & uterus: normal bimanual exam, normal palpation, uterine size normal, bladder normal to palpation, consistency normal and normal palpation Bimanual Exam- Adnexa, other: normal adnexae, no masses and no tenderness Assessment & Plan Assessment & Plan (1) Well woman exam: Code(s): Z01.419 - Encounter for gynecological examination (general) (routine) without abnormal findings Category: Medical Plan: Co testing not indicated this year. Counseled the patient about the recommended dietary allowance of 1200 mg of Calcium & 600 IU of vitamin D. Instructions given the patient to schedule next screening Mammogram in 09/14. The patient was instructed to perform monthly self-breast exams and schedule annual exam in a year. All questions answered and the patient verbalized understanding. (2) Vulvovaginitis: Code(s): N76.0 - Acute vaginitis Category: Medical Plan: BV panel taken, will check the results and treat accordingly Coding Level of Care Code Est Pt Prev Care 40-64y(50613) Diagnoses Well woman exam Z01.419 Vulvovaginitis N76.0
== END 2024-04-24 14:04 | disposition home or self-care (01) ==
LOC: HO.HWS 13:13
PROVIDERS: PCP Internal Medicine; Visit Provider Obstetrics & Gynecology
DX: Z01.419 Encounter for gynecological examination (general) (routine) without abnormal findings (principal); N76.0 Acute vaginitis
CPT/HCPCS: 99396

== ENCOUNTER 2024-04-24 13:13 | Outpatient (REF) | payer OTHER, SELFPAY ==
[2024-04-24 17:30] LABS: Bacterial Vaginosis PCR NEGATIVE (Negative); Candida Group PCR NOT DETECTED (Not Detect); Candida glab krusei PCR NOT DETECTED (Not Detect); Trichomonas vaginalis PCR NOT DETECTED (Not Detect)
== END 2024-04-24 13:14 | disposition home or self-care (01) ==
LOC: HO.LNP 13:13
PROVIDERS: PCP Internal Medicine; Visit Provider Obstetrics & Gynecology
DX: N89.8 Other specified noninflammatory disorders of vagina (principal)
CPT/HCPCS: 0352U; 99396

== ENCOUNTER 2024-04-26 14:09 | Outpatient (REF) | payer OTHER, SELFPAY ==
--- NOTE | ~2024-04-26 | CT_ITS ---
EXAMINATION: CT LUMBAR SPINE WITHOUT CONTRAST CLINICAL INFORMATION: Dorsalgia. COMPARISON: Lumbar spine MRI from 11/15/2023. Lumbar spine radiographs from 02/16/2024. TECHNIQUE: Multidetector helical imaging of the lumbar spine was obtained without intravenous contrast. Multiple axial reformats and coronal/sagittal reconstructions were created the technologist workstation for review. This CT examination was performed using dose optimization techniques as appropriate, variously including the following: *Automated exposure control. *Adjustment of mA and/or kV according to patient size (this includes techniques or standardized protocols for targeted exams where dose is matched to indication/reason for exam; i.e. extremities or head). *Use of iterative reconstruction technique. DLP: 389 mGy-cm FINDINGS: Mild right convex curvature of the lumbar spine. Mild right lateral translation of L3 on L4. Degenerative stepwise grade 1 anterolisthesis of L3-L4. No evidence of acute fracture or traumatic subluxation. The vertebral body heights are maintained. Advanced degenerative disc disease of L4-L5. Moderate degenerative disc disease from L2-L4. Mild degenerative disc disease at L5-S1. No suspicious lytic or sclerotic osseous lesions. No significant abnormalities of the paraspinal musculature. Multiple nonobstructive renal stones bilaterally measuring from punctate in size to 0.4 cm. Otherwise, limited evaluation of the intra-abdominal structures without significant abnormalities. The abdominal aorta is of normal contour and caliber with mild calcific atherosclerotic disease. AXIAL SPINAL LEVELS: L1-L2: Shallow diffuse disc bulge. There is moderate bilateral facet joint arthropathy. There is no neural foraminal stenosis. There is no demonstrated spinal canal stenosis. L2-L3: Mild diffuse disc bulge. There is moderate left worse than right facet joint arthropathy. There is moderate left and mild right neural foraminal stenosis. There appears to be mild spinal canal stenosis. L3-L4: Prominent diffuse disc bulge exacerbated by uncovering from anterolisthesis. There is severe bilateral facet joint arthropathy. There is moderate to severe left and moderate right neural foraminal stenosis. There appears to be moderate to severe spinal canal stenosis. L4-L5: Moderate diffuse disc bulge with posterior osseous ridging. There is severe right and moderate left facet joint arthropathy. There is moderate to severe right and moderate left neural foraminal stenosis. There appears to be moderate spinal canal stenosis. L5-S1: Mild diffuse disc bulge. There is moderate bilateral facet joint arthropathy. There is mild bilateral neural foraminal stenosis. There is no demonstrated spinal canal stenosis. CT/CT lumbar spine wo IV con IMPRESSION: 1. No evidence of acute fracture or traumatic subluxation of the lumbar spine. 2. Moderate multilevel degenerative spondyloarthropathy of the lumbar spine as described in detail above. Most notably on this limited exam without intrathecal contrast, there appears to be moderate to severe spinal canal stenoses at L3-L4 and L4-L5. Mild spinal canal stenosis at L2-L3. Moderate to severe neural foraminal stenoses from L2-L5. 3. Bilateral nonobstructive nephrolithiasis. Electronically signed by: Edd Kapoor DO 05/27/2024 06:36 PM EDT
== END 2024-04-26 14:10 | disposition home or self-care (01) ==
LOC: HO.CT 14:09
PROVIDERS: PCP Internal Medicine; Visit Provider Physician Assistant
DX: M54.9 Dorsalgia, unspecified (principal)
CPT/HCPCS: 72131

== ENCOUNTER 2024-05-30 13:18 | Outpatient (AMB) | payer OTHER, SELFPAY ==
--- NOTE | 2024-05-30 13:29 | MHC.OFFVIS ---
Vital Signs 05/30/24 13:35 Height 5 ft 7 in Weight 163 lb BMI 25.5 BP 94/61 Blood Pressure Location Lt brachial Position Sitting Pulse 74 Intake Visit Reasons: Abdominal bloating Intake Note: Patient follow up for abdominal bloating Patient cc: abdominal bloating with some abdominal pain on and off, nauseas, acid reflex with throat burning sensation, between diarrhea and constipation with some blood spot in the pass also swallowing difficulty, dizziness and tiredness. Cotton Stomper Required: No Accompanied by: Self / Same As Patient Allergies latex [LATEX] Allergy (Mild, Verified 04/24/24 13:27) RASH codeine [CODEINE] Adverse Reaction (Intermediate, Verified 04/24/24 13:27) UPSET STOMACH naproxen [NAPROXEN] Adverse Reaction (Intermediate, Verified 04/24/24 13:27) VOMITING HPI HPI Abdominal bloating: Details: LAST VISIT: Abdominal bloating Occasional postprandial abdominal bloating related most likely to the food that she eats. Again discussed with patient low FODMAP diet. List of food recommended as well as list of food to avoid given to patient again. Patient will try to call navigational nurse to see if she can get any assistance. Chronic GERD Continue omeprazole. Discussed with patient avoiding dietary triggers in late night snacking. Staying upright for minimal 3 hours after meals discussed with patient. IBS (irritable bowel syndrome) Continue low FODMAP diet. Patient can take simethicone to help her with abdominal bloating. Patient was encouraged to continue taking probiotic if able to tolerate. I will see her in 6 months, sooner on as needed basis. Patient understanding instructions. She was given the opportunity to ask questions and all questions answered. ? Thank you for allowing me to participate in her care Plan Medications Refilled omeprazole take 30 minutes before breakfast 20 mg PO DAILY 90 caps 2RF K21.9 - Gastro-esophageal reflux disease without esophagitis simethicone (Gas Relief (simethicone)) 80 mg PO TID-QID PRN 120 tabs 5RF abdominal distention R14.0 - Abdominal distension (gaseous) TODAY'S VISIT Patient is here today for follow-up. Patient reports that she has been feeling worse lately. Patient admits to be drinking more than usually in the last few months. Patient drinks few shots of vodka every day. Liver enzymes elevated. Patient reports that she gained weight feeling bloated. Patient reports also having trouble swallowing soft and solid food. No trouble swallowing liquids. Patient reports postprandial epigastric pain and acid reflux. Sometimes reflux go when up all the way to her throat. Patient reports occasional nausea. Reports abdominal pain throughout. No specific area. However when constipated pain in the left lower quadrant. Patient feels like she is always bloated. Reports constipated for the most part, however occasionally patient will have loose stools depending on what she eats. Patient reports that she drinks plenty water. FOR[facility]LY [facility], LATER [facility] Medical History (Updated 05/13/24 @ 08:50 by Sallie Becerra PA-C) Alcoholism Constipation Malnutrition Menopause Bilateral ovarian cysts Submucous uterine fibroid Nicotine dependence, cigarettes, uncomplicated WESTLEY (generalized anxiety disorder) Moderate recurrent major depression Chronic GERD Memory loss Leukocytosis Abdominal bloating Fibromyalgia Surgical History H/O excision of mass (02/07/24) History of lymph node excision History of endoscopy History of colonoscopy History of eye surgery Family History Father No problems noted. Mother Hypertension Diabetes Maternal Grandmother Cervical cancer Ovarian cancer Family/Other Mental health disorder Substance use disorder Social History Housing: Apartment Alcohol intake: current Alcohol intake frequency: a few times a week Alcohol type: wine Patient Tobacco Use Status: Current everyday Tobacco user Tobacco use type: Cigarette Cigarette Packs Per Day: 1 Cigarettes Per Day: 20.0 Years Smoked: 40 e-Cigarette/Vaping Use: Never Used Second Hand Smoke Exposure: No Substance Use Type: Crack/Cocaine, Marijuana and Other service: No Current occupational status: unemployed and disabled 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 Sexual orientation: Straight/Heterosexual Gender identity: Female Cognitive needs: Yes (cane/walker) Hearing needs: No Vision needs: No Review of Systems Const Denies weight gain and Denies weight loss ENT Reports no additional complaints, Reports dysphagia and Denies odynophagia Card Reports no additional complaints Resp Reports no additional complaints GI Reports abdominal pain, Denies belching, Denies melena, Reports bloating, Reports constipation, Reports dysphagia, Denies excessive flatus, Reports dyspepsia, Reports heartburn, Denies diarrhea, Reports loose stools, Reports nausea, Denies odynophagia and Denies vomiting Reports no additional complaints Musc Reports no additional complaints Neuro Reports no additional complaints Psych Reports no additional complaints Endo Reports no additional complaints Physical Exam Vital Signs: Last Vital Signs Pulse 74 05/30/24 13:35 BP 94/61 05/30/24 13:35 BMI result Body Mass Index 25.5 Const Other: Ambulating with a cane General: healthy appearing, no acute distress and well developed Nutritional Appearance: well nourished Orientation/consciousness: patient oriented x3 Resp Effort & Inspection: normal respiratory effort, able to speak in complete sentences, no tracheal deviation and symmetric chest movement Auscultation: clear to auscultation bilaterally Cardio Rate: regular rate GI Inspection: Yes normal to inspection and No distended Palpation (GI): Soft to palpation, not firm, nontender and No hepatosplenomegaly present Auscultation: normal bowel sounds General: Yes no CVA tenderness Back/Spine/Pelvis Back: no CVA tenderness Skin General skin exam: elasticity normal, turgor normal and dry skin Neuro General: patient oriented x3 Psych Appearance: grossly normal Mental Status: mental status grossly normal Assessment & Plan Assessment & Plan (1) Alcoholism: Code(s): F10.20 - Alcohol dependence, uncomplicated Category: Medical (2) Constipation: Code(s): K59.00 - Constipation, unspecified Category: Medical Qualifiers: Constipation type: slow transit constipation Qualified Code(s): K59.01 - Slow transit constipation (3) Chronic GERD: Code(s): K21.9 - Gastro-esophageal reflux disease without esophagitis Category: Medical (4) Abdominal bloating: Code(s): R14.0 - Abdominal distension (gaseous) Category: Medical (5) IBS (irritable bowel syndrome): Code(s): K58.9 - Irritable bowel syndrome, unspecified Qualifiers: Irritable bowel syndrome type: with both diarrhea and constipation Qualified Code(s): K58.2 - Mixed irritable bowel syndrome (6) Dysphagia: Code(s): R13.10 - Dysphagia, unspecified Qualifiers: Dysphagia type: pharyngoesophageal phase Qualified Code(s): R13.14 - Dysphagia, pharyngoesophageal phase (7) Postprandial epigastric pain: Code(s): R10.13 - Epigastric pain Plan Will change PPI therapy to Nexium. Avoid dietary triggers. Avoid drinking alcohol. Patient was encouraged to try to go to detox. Patient will be sent for upper endoscopy to rule out gastritis, esophagitis, gastric or peptic ulcers, Campbell's, Schatzki ring, achalasia. Patient was encouraged to take Dulcolax every day. Increase fluid intake and activity to promote better bowel motility. Increase fiber intake and probiotics. Message sent to surgical schedulers to book procedure. Patient will be seen after the procedure, sooner on as needed basis. She is agreeable to this plan and verbalizes understanding of instructions. She was given the opportunity to ask questions and all questions answered. Thank you for allowing me to participate in her care Orders: Orders US abdomen complete Today R10.9 - Unspecified abdominal pain Liver Panel Today R74.01 - Elevation of levels of liver transaminase levels Alkaline Phosphatase Isoenzyme Today R74.8 - Abnormal levels of other serum enzymes Lipase Today R10.9 - Unspecified abdominal pain Medications: New bisacodyl (Dulcolax (bisacodyl)) 10 mg (2 x 5 mg) PO BEDTIME 180 tabs 4RF esomeprazole magnesium (Nexium) 40 mg PO DAILY 30 caps 5RF K21.9 - Gastro-esophageal reflux disease without esophagitis Discontinued omeprazole take 30 minutes before breakfast Discontinued Reason: Doctor's Order 20 mg PO DAILY 90 caps 2RF K21.9 - Gastro-esophageal reflux disease without esophagitis Coding Level of Care Code Est Pt Level 4 (47868) Diagnoses Alcoholism F10.20 Slow transit constipation K59.01 Constipation type: slow transit constipation Chronic GERD K21.9 Abdominal bloating R14.0 Irritable bowel syndrome with both constipation and diarrhea K58.2 Irritable bowel syndrome type: with both diarrhea and constipation Pharyngoesophageal dysphagia R13.14 Dysphagia type: pharyngoesophageal phase Postprandial epigastric pain R10.13 Time Spent (min) 40 Comment 25 minutes spent with patient and additional 15 minutes spent reviewing her records
[2024-05-30 13:35] VITALS: BP 94/61; PULSE 74; BMI 25.5
== END 2024-05-30 14:04 | disposition home or self-care (01) ==
PROVIDERS: PCP Internal Medicine; Visit Provider Nurse Practitioner Family
DX: F10.20 Alcohol dependence, uncomplicated (principal); K59.01 Slow transit constipation; K21.9 Gastro-esophageal reflux disease without esophagitis; R14.0 Abdominal distension (gaseous); K58.2 Mixed irritable bowel syndrome; R13.14 Dysphagia, pharyngoesophageal phase; R10.13 Epigastric pain
CPT/HCPCS: 99214

== ENCOUNTER → 2024-05-30 13:18 | Outpatient (BNVA) | payer OTHER, SELFPAY | PROVIDERS: PCP Internal Medicine; Visit Provider Nurse Practitioner Family | DX: K21.9 Gastro-esophageal reflux disease without esophagitis (principal); K58.2 Mixed irritable bowel syndrome; K59.01 Slow transit constipation; R14.0 Abdominal distension (gaseous); R10.9 Unspecified abdominal pain; R11.0 Nausea; R13.14 Dysphagia, pharyngoesophageal phase; R10.13 Epigastric pain; R74.01 Elevation of levels of liver transaminase levels; R74.8 Abnormal levels of other serum enzymes; F10.20 Alcohol dependence, uncomplicated | CPT/HCPCS: 99212 ==

== ENCOUNTER 2024-06-11 13:06 | Outpatient (AMB) | payer OTHER, SELFPAY ==
--- NOTE | 2024-06-11 13:25 | MHC.OFFVIS ---
Intake Visit Reasons: NewProb- Rt Hand Pain Intake Note: Katlyn is a 58 year old - hand dominant female who presents today for right hand pain that began years ago. Patient reports she has a bump on her index finger that she states becomes painful randomly. Pt states the bump on her finger has decreased in size but states the size has changed randomly. Allergies latex [LATEX] Allergy (Mild, Verified 06/11/24 13:26) RASH codeine [CODEINE] Adverse Reaction (Intermediate, Verified 06/11/24 13:26) UPSET STOMACH naproxen [NAPROXEN] Adverse Reaction (Intermediate, Verified 06/11/24 13:26) VOMITING HPI HPI NewProb- Rt Hand Pain: Details: Patient is a 59-year-old female who presents for evaluation of right hand pain, particularly a bump on the patient's right index finger. The patient states that this bump is usually not painful, but does cause her discomfort when she bangs it on something or if she notices that is inflamed. She does notice that this bump does increase in size and shrink seemingly at random. The patient expresses that she is open to any potential treatment options available. Patient denies any numbness or tingling in the right upper extremity. No other acute complaints or concerns at this time. FORMERLY [facility], LATER [facility] Medical History (Updated 06/22/24 @ 13:54 by ALMA Rodriguez) Alcoholism Constipation Malnutrition Menopause Bilateral ovarian cysts Submucous uterine fibroid Nicotine dependence, cigarettes, uncomplicated WESTLEY (generalized anxiety disorder) Moderate recurrent major depression Chronic GERD Memory loss Leukocytosis Abdominal bloating Fibromyalgia Surgical History H/O excision of mass (02/07/24) History of lymph node excision History of endoscopy History of colonoscopy History of eye surgery Family History Father No problems noted. Mother Hypertension Diabetes Maternal Grandmother Cervical cancer Ovarian cancer Family/Other Mental health disorder Substance use disorder Social History Housing: Apartment Alcohol intake: current Alcohol intake frequency: a few times a week Alcohol type: wine Patient Tobacco Use Status: Current everyday Tobacco user Tobacco use type: Cigarette Cigarette Packs Per Day: 1 Cigarettes Per Day: 20.0 Years Smoked: 40 e-Cigarette/Vaping Use: Never Used Second Hand Smoke Exposure: No Substance Use Type: Crack/Cocaine, Marijuana and Other service: No Current occupational status: unemployed and disabled 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 Neuro: Normal sensation of the tips of all digits of the right hand at this time Vascular: Cap refill brisk Pain: Patient reports tenderness to palpation of a small lump noted on the dorsal aspect of the PIP joint of the right index finger Patient reports no other tenderness to palpation elsewhere in the right hand and wrist ROM: Patient is able to extend all digits of the right hand and make a closed fist without difficulty. Skin: No lacerations or abrasions. General: There is noted to be a small, hard to palpation bump noted on the dorsal aspect of the PIP joint of the patient's right middle finger No ecchymosis, erythema, or evidence of infection. Psych: Appears grossly normal Affect normal Attitude cooperative Results Reviewed Results Reviewed: X-rays obtained in the office today and independently reviewed by me, Jared Green PA-C, demonstrate osteophyte noted in the area of the bump on the patient's right index finger. No other fracture or acute bony abnormality noted. Assessment & Plan Assessment & Plan (1) Osteophyte of hand: Code(s): M25.749 - Osteophyte, unspecified hand Category: Medical Plan 1. Osteophyte of right middle finger with potential overlying ganglion cyst Patient is educated about this condition The patient is educated about the treatment options available Patient was informed that at this time, I can not definitively say whether or not there is an overlying ganglion cyst on the area of bony prominence on her right index finger, but my suspicion of this is low at this time due to the fact that there is no fluid filled area to palpation Patient is educated that she will require an appointment with Dr. Navas to discuss any potential surgical intervention of this osteophyte in order to have permanent relief of the bump on her finger The patient states that she is not particularly interested in any surgical intervention at this time Patient will follow-up as needed with acute concerns Orders: Orders XR hand RT min 3V 06/11/24 M79.641 - Pain in right hand Coding Level of Care Code New Pt Level 3 (75930) Diagnoses Osteophyte of hand M25.749
== END 2024-06-11 13:56 | disposition home or self-care (01) ==
PROVIDERS: PCP Internal Medicine
DX: M25.749 Osteophyte, unspecified hand (principal)
CPT/HCPCS: 99203

== ENCOUNTER 2024-06-11 13:06 | Outpatient (REF) | payer OTHER, SELFPAY | END 2024-06-11 13:07 | disposition home or self-care (01) | LOC: HO.HOSX 13:06 | PROVIDERS: PCP Internal Medicine | DX: M79.641 Pain in right hand (principal); M25.741 Osteophyte, right hand | CPT/HCPCS: 73130; 99202 ==

== ENCOUNTER 2024-09-04 13:05 | Outpatient (REF) | payer OTHER, SELFPAY | END 2024-09-04 13:06 | disposition home or self-care (01) | LOC: HO.HOSX 13:05 | PROVIDERS: Visit Provider Physician Assistant | DX: Z13.89 Encounter for screening for other disorder (principal) ==

== ENCOUNTER 2024-09-12 12:50 | Outpatient (AMB) | payer OTHER, SELFPAY ==
--- NOTE | 2024-09-12 12:51 | HO.SPINEOV ---
Intake Visit Reasons: CT f/u & possible sx discussion Intake Note: Ms. New is here to F/u on the results to her CT. Animal Control Licensing Worker Required: No Allergies latex [LATEX] Allergy (Mild, Verified 06/11/24 13:26) RASH codeine [CODEINE] Adverse Reaction (Intermediate, Verified 06/11/24 13:26) UPSET STOMACH naproxen [NAPROXEN] Adverse Reaction (Intermediate, Verified 06/11/24 13:26) VOMITING Assessment & Plan Assessment & Plan (1) Back pain: Code(s): M54.9 - Dorsalgia, unspecified Category: Medical Plan Mrs New follow-up today. Please refer to my previous note for the specifics of her problem. She obtain a CT scan at [facility] and I reviewed with Dr. Oshea. It does show that she has degenerative disc disease at L4-5 with reactive endplate changes. Unfortunately, her bone quality does not look optimal, and she has multiple risks factors for poor outcome with lumbar fusion surgery. In fact, his concern is that the surgery would give her more pain and she would be high risk for complications. These risks factors would include, history of smoking, multiple traumas giving her back pain, poor bone quality and history of substance abuse. She was asking about 2nd opinion. We told her that certainly would be reasonable if the pain is that bad and she is looking for surgical options. She can come back to see us on an as-needed basis. Total amount of time spent in this visit was 20 minutes in discussion of symptoms, lumbar CT imaging results and subsequent plan of care Tomasz Oshea MD,PhD [facility] Coding Level of Care Code Est Pt Level 3 (66874) Diagnoses Back pain M54.9
== END 2024-09-12 14:16 | disposition home or self-care (01) ==
PROVIDERS: PCP Internal Medicine; Visit Provider Physician Assistant
DX: M54.9 Dorsalgia, unspecified (principal)
CPT/HCPCS: 99213

== ENCOUNTER → 2024-09-12 12:50 | Outpatient (BNVA) | payer OTHER, SELFPAY | PROVIDERS: PCP Internal Medicine; Visit Provider Physician Assistant | DX: M54.9 Dorsalgia, unspecified (principal) | CPT/HCPCS: 99212 ==

== ENCOUNTER 2024-09-30 08:11 | Outpatient (REF) | payer OTHER, SELFPAY | END 2024-09-30 08:12 | disposition home or self-care (01) | LOC: HO.HOSX 08:11 | PROVIDERS: Visit Provider Physician Assistant | DX: Z13.89 Encounter for screening for other disorder (principal) ==

== ENCOUNTER 2024-11-17 22:14 | Outpatient (REF) | payer OTHER, SELFPAY | END 2024-11-17 22:15 | disposition home or self-care (01) | LOC: HO.HOSX 22:14 | PROVIDERS: Visit Provider Physician Assistant | DX: Z13.89 Encounter for screening for other disorder (principal) ==

== ENCOUNTER 2024-11-18 09:10 | Outpatient (REF) | payer OTHER, SELFPAY | END 2024-11-18 09:11 | disposition home or self-care (01) | LOC: HO.HOSX 09:10 | PROVIDERS: Visit Provider Physician Assistant | DX: Z13.89 Encounter for screening for other disorder (principal) ==

== ENCOUNTER 2024-11-26 15:48 | Outpatient (AMB) | payer OTHER, SELFPAY ==
--- NOTE | 2024-11-26 15:50 | A.OFFPC_ITS ---
Intake Visit Reasons: deviated septum Cardiac Technologist Required: No Accompanied by: Self / Same As Patient Allergies latex [LATEX] Allergy (Mild, Verified 11/26/24 15:53) RASH codeine [CODEINE] Adverse Reaction (Intermediate, Verified 11/26/24 15:53) UPSET STOMACH naproxen [NAPROXEN] Adverse Reaction (Intermediate, Verified 11/26/24 15:53) VOMITING Tobacco use date assessed: 11/26/24 Dental Screening Dental Screen Date: 11/26/24 Did you have a dental visit in the last 12 months?: No Did you have a dental problem in the last 6 months where you did not have access to dental care?: No Was dental information given to patient?: Patient has dentist HPI HPI Comments 2 History of Present Illness Details This is a 59-year-old female with alcoholism, moderate major depression, COPD, lumbar spondylosis and knee pain that complains of a deviated nasal septum that has been bothering her for years. Will be referred to ENT. Her depression has worsened by recent passing of her mother. Was advised to seek counseling for alcoholism and depression. Will see pain management for lumbar spondylosis this month and ortho for knee pain next month. Reports no aggravation of shortness on breath on her COPD. This is a telehealth visit by video. [facility] Medical History (Updated 11/26/24 @ 16:17 by Jeimy Gill MD) Alcoholism Constipation Malnutrition Menopause Bilateral ovarian cysts Submucous uterine fibroid Nicotine dependence, cigarettes, uncomplicated WESTLEY (generalized anxiety disorder) Moderate recurrent major depression Chronic GERD Memory loss Leukocytosis Abdominal bloating Fibromyalgia Surgical History H/O excision of mass (02/07/24) History of lymph node excision History of endoscopy History of colonoscopy History of eye surgery Family History Father No problems noted. Mother Hypertension Diabetes Maternal Grandmother Cervical cancer Ovarian cancer Family/Other Mental health disorder Substance use disorder Social History Housing: Apartment Alcohol intake: current Alcohol intake frequency: a few times a week Alcohol type: wine Patient Tobacco Use Status: Current everyday Tobacco user Tobacco use type: Cigarette Cigarette Packs Per Day: 1 Cigarettes Per Day: 20.0 Years Smoked: 40 Packs Per Year: 40 Packs per year/per ci.00 e-Cigarette/Vaping Use: Never Used Second Hand Smoke Exposure: No Substance Use Type: Crack/Cocaine, Marijuana and Other service: No Current occupational status: unemployed and disabled 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 1. Little interest or pleasure in doing things: more than half the days 2. Feeling down, depressed, or hopeless: more than half the days 3. Trouble falling or staying asleep, or sleeping too much: more than half the days 4. Feeling tired or having little energy: more than half the days 5. Poor appetite or overeating: several days 6. Feeling bad about yourself - or that you are a failure or have let yourself or your family down: several days 7. Trouble concentrating on things, such as reading the newspaper or watching television: several days 8. Moving or speaking so slowly that other people could have noticed. Or the opposite - being so fidgety or restless that you have been moving around a lot more than usual: several days 9. Thoughts that you would be better off or of hurting yourself in some way: not at all Total score: 12 Depression Screening Interpretation: Positive Depression Screening Done: Yes Source: Developed by Drs. Trevon Bowden, Kathleen Oconnor, German Quintero and colleagues, with an educational zeke from [employer]. Thrive Questionnaire Date Thrive assessed: 11/26/24 I am a: Patient What is your living situation today?: I have a steady place to live Within the past 12 months, did the food you bought not last and you didn't have the money to get more?: Never true Within the past 12 months, did you worry whether your food would run out before you got money to buy more?: Never true Do you have trouble paying for medicines?: No Do you have trouble getting transportation to medical appointments?: No Do you have trouble paying your heating and electricity bill?: No Do you have trouble taking care of your child, family member or friend?: No Do you have trouble with day-to-day activities such as bathing, preparing meals, shopping, managing finances, etc.?: Yes Are you currently unemployed and looking for a job?: No Are you interested in more education?: No Please select the resources that you would like help with: None Currently or been in a relationship where the following occur: No concerns reported THRIVE Score: 0 AUDIT C Alcohol Use Questionnaire (AUDIT-C) 1. How often do you have a drink containing alcohol?: 2-3 times a week 2. How many drinks containing alcohol do you have on a typical day when you are drinking?: 1 or 2 3. How often do you have six or more drinks on one occasion?: Never Total Score: 3 Score Reviewed/Action Taken: Yes WESTLEY-7 AMB Questionnaire WESTLEY-7 Date WESTLEY - 7 assessed: 11/26/24 Feeling nervous, anxious, or on edge: 1 = Several days Not being able to stop or control worryin = Not at all Worrying too much about different things: 1 = Several days Trouble relaxin = Several days Being so restless that it is hard to sit still: 0 = Not at all Becoming easily annoyed or irritable: 1 = Several days Feeling afraid as if something awful might happen: 1 = Several days Total WESTLEY-7 score (0-4 normal; 5-9 mild; 10-14 moderate; 15-21 severe): 5 Source: Developed by Drs. Trevon Bowden, Kathleen Oconnor, German Quintero and colleagues, with an educational zeke from [employer]. Review of Systems Const All systems reviewed & are unremarkable except as noted in HPI and below Card Denies chest pain at rest, Denies chest pain with activity, Denies edema, Denies irregular heart rhythm, Denies claudication, Denies dyspnea, Denies dyspnea on exertion, Denies orthopnea, Denies paroxysmal nocturnal dyspnea and Denies slow heart rate Resp Denies cough, Denies dyspnea and Denies dyspnea on exertion GI Denies abdominal pain, Denies change in bowel habits, Denies excessive flatus, Denies nausea and Denies vomiting Denies urinary incontinence, Denies urinary hesitancy and Denies urinary urgency Musc Denies atrophy, Denies deformity and Denies limited range of motion Skin/Breast Denies bleeding lesions, Denies changing lesions and Denies rash Physical exam (Primary Care) Tobacco/Smoking Status: Tobacco use Status Tobacco use date assessed 11/26/24 11/26/24 15:54 Patient Tobacco Use Status Current everyday Tobacco 11/26/24 15:54 Tobacco use type Cigarette 11/26/24 15:54 e-Cigarette/Vaping Use Never Used 11/26/24 15:54 PHQ-9: PHQ-9 Score PHQ-9: Total score 12 11/26/24 16:22 Depression Screening Interpretation: Positive Thrive Assessment: Date of Thrive Assessment Date Thrive assessed 11/26/24 11/26/24 15:54 Currently or been in a relationship where the following occur: No concerns rep orted HENMT Head: Yes normocephalic Ears: external ears normal General nose exam: No nasal discharge present Telehealth Telehealth Telehealth Platform: Telephone Location of provider rendering services: practice address Location of patient: address on file Patient Identification confirmed using: Name, : Yes Telehealth method: video Patient verbally consented to treatment: Yes Patient verbally consented to billing insurance company: Yes Patient informed of any privacy concerns related to visit: Yes Minutes spent on Phone/Video with Pt.: 20 Coding Level of Care Code Tele Est Pt Level 4 (27108) Complex EM visit Add On G2211 Diagnoses Deviated septum J34.2 Knee pain M25.569 COPD (chronic obstructive pulmonary disease) J44.9 Alcoholism F10.20 Lumbar spondylosis M47.816 Moderate recurrent major depression F33.1 Time Spent (min) 20 Assessment & Plan Assessment & Plan (1) Deviated septum: Code(s): J34.2 - Deviated nasal septum Category: Medical (2) Knee pain: Code(s): M25.569 - Pain in unspecified knee Category: Medical (3) COPD (chronic obstructive pulmonary disease): Code(s): J44.9 - Chronic obstructive pulmonary disease, unspecified Category: Medical (4) Alcoholism: Code(s): F10.20 - Alcohol dependence, uncomplicated Category: Medical (5) Lumbar spondylosis: Code(s): M47.816 - Spondylosis without myelopathy or radiculopathy, lumbar region Category: Medical (6) Moderate recurrent major depression: Code(s): F33.1 - Major depressive disorder, recurrent, moderate Category: Medical Plan For her deviated septum she was referred to ENT. For her knee pain she was referred to Ortho. For her low back pain she was referred to pain management. She said she does have support for her major depression. She was advised to cut down on drinking alcohol. She was advised to use rescue inhaler for her COPD. Orders: Referrals Ear/Nose/Throat Referral J34.2 - Deviated nasal septum Medications: Refilled nebulizers (Compact Compressor Nebulizer) As directed 1 ea 0RF J44.9 - Chronic obstructive pulmonary disease, unspecified
== END 2024-11-26 16:39 | disposition home or self-care (01) ==
PROVIDERS: PCP Internal Medicine; Visit Provider Internal Medicine
DX: J34.2 Deviated nasal septum (principal); J44.9 Chronic obstructive pulmonary disease, unspecified; F10.20 Alcohol dependence, uncomplicated; F33.1 Major depressive disorder, recurrent, moderate; M47.816 Spondylosis without myelopathy or radiculopathy, lumbar region

== ENCOUNTER → 2024-11-26 15:48 | Outpatient (BNVA) | payer OTHER, SELFPAY | PROVIDERS: PCP Internal Medicine; Visit Provider Internal Medicine ==

== ENCOUNTER 2024-12-27 19:47 | Inpatient (IN) | payer OTHER, SELFPAY ==
[2024-12-27 20:09] VITALS: BP 116/77; PULSE 93; RESP 16; TEMP 36.2; O2SAT 98; BMI 26.6
--- NOTE | 2024-12-27 20:32 | PC.NURSE ---
PT ARRIVED TO THE ED VIA [facility] DUE TO SUICIDAL IDEATION. PT SENT A TEXT MESSAGE TO HER FRIEND STATING THAT SHE WAS GOING TO COMMIT SUICIDE. PT WAS FOUND BY POLICE LAYING IN HER BED WITH A KNIFE AND BOTTLES OF MEDICATIONS. PT REFUSED TO ANSWER THE EMS REGARDING IF SHE TOOK ANY MEDICATIONS. PT REPORTS SI STATING THAT SHE IS GOING TO KILL HERSELF, HAS A LACK OF SUPPORT SYSTEM AND DOES NOT WANT TO LIVE. PT IS AGITATED AND VERBALLY ABUSIVE TO STAFF. REFUSING A BLOOD DRAW AT THIS TIME. AMBULATES WITH A WALKER. A&oX4. PT REPORTS HER MOTHER RECENTLY WHICH HAS EXACERBATED HER DEPRESSION.
--- NOTE | 2024-12-27 21:19 | MHC.EDTECH ---
pt refusing to provide UA and blood samples. RN AWARE
[2024-12-27 21:50] LABS: Appearance Urine Clear; Color Urine Yellow; Glucose Urine UA Negative (Negative); Leukocyte Esterase Urine Trace (Negative); Nitrite Urine Negative (Negative); PH 6.5 (5.0-9.0); Specific Gravity - Urine <= 1.005 (1.005-1.025); UMIC TRIGGER UACC YES; Urine Blood Negative (Negative); Urine Ketones Negative (Negative); Urine Protein Negative (Neg-Trace)
[2024-12-27 21:52] LABS: Bacteria Urine None Seen (None Seen); Hyaline Casts Urine 0-2 /LPF (0-2); RBC Urine 0-2 /HPF (0-2); Squamous Epithelial Cell Urine 0-2 /HPF (0-2); WBC Urine 0-5 /HPF (0-5)
[2024-12-27 22:00] LABS: Amphetamine Screen Urine Not Detected (Not Detect); Barbiturates, Urine Not Detected (Not Detect); Benzodiazepines Screen Urine Not Detected (Not Detect); Buprenorphine Scr Not Detected (Not Detect); Cannabinoid Screen Urine POSITIVE (Not Detect); Cocaine Screen Urine Not Detected (Not Detect); Fentanyl, urine Not Detected (Not Detect); Methadone Screen, Urine Not Detected (Not Detect); Opiate Screen Urine Not Detected (Not Detect); Oxycodone Screen Urine Not Detected (Not Detect); Phencyclidine Screen Urine Not Detected (Not Detect)
[2024-12-27] MEDS: clonazePAM 1 MG TABLET PO (22:06)
[2024-12-27] MEDS: Gabapentin 400 MG CAPSULE 800 MG PO (22:06)
[2024-12-27] MEDS: Ibuprofen 800 MG TABLET PO (22:06)
[2024-12-27] MEDS: Pregabalin 50 MG CAPSULE PO (22:06)
--- NOTE | 2024-12-27 22:39 | ED_ITS ---
HPI - General Adult General Chief complaint: Psychiatric Symptoms Stated complaint: SI Time Seen by Provider: 12/27/24 20:43 Source: patient Limitations: no limitations History of Present Illness ED Provider: Izabela Mcneal PA-C HPI narrative: 59-year-old female with a history of anxiety, depression, alcohol use disorder, chronic pain, fibromyalgia, COPD, who presents with SI. Patient was texting one of her friends verbalizing thoughts of self-harm. When police arrived to her home, the patient was found in her bed with a knife and medication in her hand. Patient emphatically denies SI, she states ?they want to do it I would, people said that I do things all the time but they down?. Patient does admit that her mother recently , which has been emotionally stressful. Related Data Home Medications ?Medication ?Instructions ?Recorded ?Confirmed trazodone 100 mg tablet 200 mg PO BEDTIME PRN Insomnia 08/03/21 12/27/24 glucosamine-chondroitin 750 mg-600 1 tab PO BID 07/19/22 12/27/24 mg tablet loperamide 2 mg capsule (Imodium 2 mg PO Q4H PRN loose stool 07/19/22 12/27/24 A-D) bauhamyr-kwy-psasx ac 400 1 tab PO DAILY 07/19/22 12/27/24 mcg-calcium carb 500 mg-vit K1 20 mcg tablet (Women's 50 Plus Multivitamin) Tumeric Curcumin Complex 1 cap PO DAILY 09/05/22 12/27/24 clonazepam 1 mg tablet 1 mg PO TID PRN Anxiety 12/11/23 12/27/24 duloxetine 60 mg capsule,delayed 60 mg PO QAM 12/27/24 12/27/24 release Previous Rx's ?Medication ?Instructions ?Recorded nicotine (polacrilex) 4 mg buccal 4 mg buccal Q8H PRN nicotine 02/06/24 lozenge cravings 30 days #81 ea calcium 500 mg (as 1 tab PO DAILY 90 days #90 tabs 03/06/24 carbonate)-vitamin D3 10 mcg (400 unit) tablet (Oyster Shell Calcium-Vitamin D3) simethicone 80 mg chewable tablet 80 mg PO TID-QID PRN abdominal 03/13/24 (Gas Relief (simethicone)) distention #120 tabs valacyclovir 1 gram tablet 1,000 mg PO DAILY 90 days #90 tabs 03/13/24 fluticasone furoate 50 1 inh inhalation Q24H 60 days #60 04/15/24 mcg-vilanterol 25 mcg/dose ea inhalation powder (Breo Ellipta) miconazole nitrate 2 % topical 1 appl topical DAILY 3 days #14 05/02/24 cream (Antifungal (miconazole)) grams nebulizers (AeroEclipse II #1 ea 05/02/24 Nebulizer) cane #1 ea 05/03/24 bisacodyl 5 mg tablet,delayed 10 mg (2 x 5 mg) PO BEDTIME #180 05/30/24 release (Dulcolax (bisacodyl)) tabs cyclobenzaprine 10 mg tablet 10 mg PO BEDTIME PRN muscle spasm 08/13/24 3 months #90 tabs gabapentin 800 mg tablet 800 mg PO TID 3 months #270 tabs 08/13/24 nebulizers (AeroEclipse II #1 ea 09/16/24 Nebulizer) fluticasone propionate 50 1 spray intranasal DAILY #100 mL 11/14/24 mcg/actuation nasal spray,suspension (Flonase Allergy Relief) albuterol sulfate 2.5 mg/3 mL 2.5 mg (3 mL) inhalation Q6H PRN 11/23/24 (0.083 %) solution for nebulization bronchospasm 30 days #360 mL albuterol sulfate 90 mcg/actuation 2 puff inhalation Q4-6H PRN for 11/23/24 aerosol inhaler (Ventolin HFA) wheezing 30 days #18 ea food supplemt, lactose-reduced 1 ea PO BID 25 days #5,688 mL 11/23/24 0.05 gram-1.5 kcal/mL oral liquid (Ensure Plus) lidocaine 5 % topical patch 1 patch topical DAILY PRN pain 30 11/23/24 days #15 ea esomeprazole magnesium 40 mg 40 mg PO DAILY #90 caps 11/25/24 capsule,delayed release nebulizers (Compact Compressor #1 ea 11/26/24 Nebulizer) thiamine HCl (vitamin B1) 100 mg 100 mg PO DAILY 90 days #90 tabs 12/01/24 tablet ibuprofen 800 mg tablet 800 mg PO TID PRN fever or pain 30 12/04/24 days #90 tabs pregabalin 100 mg capsule (Lyrica) 100 mg PO BID 30 days #60 caps 01/01/25 Allergies Allergy/AdvReac Type Severity Reaction Status Date / Time latex [LATEX] Allergy Mild RASH Verified 12/27/24 20:22 codeine [CODEINE] AdvReac Intermediate UPSET Verified 12/27/24 20:22 STOMACH naproxen [NAPROXEN] AdvReac Intermediate VOMITING Verified 12/27/24 20:22 Review of Systems 2 Review of Systems: Yes all other systems are reviewed and are negative Constitutional: Constitutional: Denies fatigue and Denies fever(s) Cardiovascular: Cardiovascular: Denies chest pain and Denies dyspnea Respiratory: Respiratory: Denies dyspnea Gastrointestinal: Gastrointestinal: Denies abdominal pain, Denies nausea and Denies vomiting Musculoskeletal: Musculoskeletal: Reports back pain and Reports myalgias Endocrine: Endocrine: Denies fatigue PMFSH Past Medical History Attestation statement: The following information was validated with the patient. Medical History (Updated 12/31/24 @ 22:11 by Isaac Booth MD) Alcoholism Constipation Malnutrition Menopause Bilateral ovarian cysts Submucous uterine fibroid Nicotine dependence, cigarettes, uncomplicated WESTLEY (generalized anxiety disorder) Moderate recurrent major depression Chronic GERD Memory loss Leukocytosis Abdominal bloating Fibromyalgia Surgical History H/O excision of mass (02/07/24) History of lymph node excision History of endoscopy History of colonoscopy History of eye surgery Family History Family History Father No problems noted. Mother Hypertension Diabetes Maternal Grandmother Cervical cancer Ovarian cancer Family/Other Mental health disorder Substance use disorder Social History Social History Household Members: Children Household Members Other:: son Housing: Apartment Do you presently have visiting nurse or other home services: No Alcohol intake: current Alcohol intake frequency: a few times a week Alcohol type: wine Comment: 5 minute checks Patient Tobacco Use Status: Current everyday Tobacco user Tobacco use type: Cigarette Cigarette Packs Per Day: 1 Cigarettes Per Day: 20.0 Years Smoked: 40 Smoked in Last 30 Days: Yes e-Cigarette/Vaping Use: Never Used Patient Interested in Nicotine Replacement: Yes Patient Given Instructions on How to Stop Smoking: Yes Date Education Initiated: 12/30/24 Second Hand Smoke Exposure: Yes Use of substances other than those prescribed or required for medical reasons: Yes Substance Use Type: Marijuana Substance Use Frequency: Daily Last Used Substance: Just Prior to Admission Currently Displaying Signs/Symptoms of Drug Intoxication Withdrawal: No Any prior treatment program specific to substance use: Yes (Long time ago) Have you been hit, kicked, punched, or otherwise hurt by someone within the past year? If so, by whom?: No Do you feel safe in your current relationship?: Yes Is there a partner from a previous relationship who is making you feel unsafe now?: No Are you made to feel afraid or neglected: Yes (neglected) Spiritual Healthcare Practices: Mormonism Advance Directives: No Advance Directives Information Provided: No Do you have thoughts of harming others: None Do you have a plan to hurt others: No Plan Recently lost weight without trying: No Eating poorly because of decreased appetite: No Nutrition Risks: No Nutritional Risk Patient : No : No Poor oral hygiene: No service: No Current occupational status: unemployed and disabled 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 Sexual orientation: Straight/Heterosexual Gender identity: Female Cognitive needs: Yes (cane/walker) Hearing needs: No Vision needs: No Physical Exam ED Vital Signs: Vital Signs - 24 hr 12/27/24 20:09 12/28/24 05:01 12/28/24 07:47 Temperature 97.1 F 97.4 F 98.3 F Pulse Rate 93 90 98 Respiratory Rate 16 16 16 Blood Pressure 116/77 118/88 103/85 Pulse Oximetry 98 100 97 Oxygen Delivery Method Room Air Room Air Room Air BMI result Body Mass Index 26.6 Const Other: Alert, appears older than stated age Orientation/consciousness: patient oriented x3 Resp Effort & Inspection: normal respiratory effort Cardio Other: Normal peripheral perfusion Skin Other: Warm dry no rash Neuro Other: Antalgic gait walks with a walker at baseline General: patient oriented x3, no focal motor deficits and CN's II-XI intact bilaterally Psych Other: Sarcastic, bitter, angry, Course Reevaluation(s) Reevaluation #1: Time: 02:39 Date: 12/28/24 Provider: ALMA Clarke Patient in physician observation for psychiatric evaluation.? No acute events reported overnight. No current complaints. VS stable.? Patient is in bed search status/pending CARE team evaluation. Will continue to monitor. Reevaluation #2: 0715 December 28, 2024 Irvin Lynch MD: Patient in physician observation for psychiatric evaluation.??No acute events reported overnight. No current complaints. VS stable.??Patient is in bed search status/pending CARE team evaluation. Will continue to monitor. Reevaluation #3: Time: 16:00 Date: 12/30/24 Provider: Doretha Hernandez DO Physician observation ended at 1600 Patient to be admitted as inpatient to psychiatry. Medications Administered Generic Name Dose Route Start Last Admin Trade Name Freq PRN Reason Stop Dose Admin Acetaminophen 650 mg 12/30/24 15:23 12/31/24 08:51 Acetaminophen 325 Mg Tablet PO 650 mg Q6H PRN Administration Headache/Pain, Scale 1-10 Albuterol Sulfate 2 puff 12/27/24 21:18 01/01/25 06:34 Albuterol Sulfate 90 Mcg 8 Gm Inhaler INHALE 2 puff Q4H PRN Administration for wheezing Calcium Carbonate/Cholecalciferol 250 mg 12/28/24 09:00 01/01/25 08:33 Calcium + Vitamin D 250 Mg Tablet PO 250 mg DAILY YOVANY Administration Clonazepam 1 mg 12/27/24 21:18 01/01/25 06:35 Clonazepam 1 Mg Tablet PO 1 mg TID PRN Administration Anxiety Cyclobenzaprine HCl 10 mg 12/27/24 21:18 12/31/24 20:42 Cyclobenzaprine Hcl 10 Mg Tablet PO 10 mg BEDTIME PRN Administration muscle spasm Duloxetine HCl 60 mg 01/01/25 09:00 01/01/25 08:32 Duloxetine Hcl 60 Mg Capsule.Dr PO 60 mg DAILY YOVANY Administration Fluticasone Propionate 1 spray 12/28/24 09:00 01/01/25 09:14 Fluticasone Propionate Nasal 16 Gm [place] NOSTRIL-B 1 spray DAILY YOVANY Administration Fluticasone/Vilanterol 1 puff 12/28/24 19:45 01/01/25 08:51 Fluticasone/Vilanterol 100/25 Blst.W.Dev INHALE 1 puff RDAILY YOVANY Administration Gabapentin 800 mg 12/27/24 21:30 01/01/25 08:33 Gabapentin 400 Mg Capsule PO 800 mg TID YOVANY Administration Ibuprofen 800 mg 12/27/24 21:18 01/01/25 06:35 Ibuprofen 800 Mg Tablet PO 800 mg TID PRN Administration fever or pain Lidocaine 1 patch 12/27/24 21:48 12/31/24 21:04 Lidocaine 4 % Patch Adh..Patch TRANSDERMA 1 patch DAILY PRN Administration pain Loperamide HCl 2 mg 12/27/24 21:18 12/28/24 08:03 Loperamide Hcl 2 Mg Capsule PO 2 mg Q4H PRN Administration loose stool Miconazole Nitrate 1 appl 12/28/24 09:00 01/01/25 09:15 Miconazole 2 % Extra Thick Cr 56.7 Gm Tube TOPICAL 1 appl DAILY YOVANY Administration Protocol Multivitamins/Vitamin C 1 tab 12/28/24 09:00 01/01/25 08:36 Multivitamin Tablet PO 1 tab DAILY YOVANY Administration Nicotine Polacrilex 4 mg 12/30/24 16:38 01/01/25 07:30 Nicotine Polacrilex Lozenge 4 Mg Lozenge BUCCAL 4 mg Q1H PRN Administration Nicotine Cravings Omeprazole 20 mg 12/28/24 06:30 01/01/25 06:35 Omeprazole 20 Mg Capsule.Dr PO 20 mg DAILY@0630 YOVANY Administration Pregabalin 100 mg 12/31/24 21:00 01/01/25 08:35 Pregabalin 100 Mg Capsule PO 100 mg BID YOVANY Administration Simethicone 80 mg 12/27/24 21:18 12/31/24 21:02 Simethicone 80 Mg Tab.Chew PO 80 mg QID PRN Administration abdominal distention Thiamine HCl 100 mg 12/28/24 09:00 01/01/25 08:33 Thiamine Hcl 100 Mg Tablet PO 100 mg DAILY YOVANY Administration Trazodone HCl 200 mg 12/27/24 21:18 12/31/24 23:09 Trazodone Hcl 100 Mg Tablet PO 200 mg BEDTIME PRN Administration Insomnia Valacyclovir HCl 1,000 mg 12/28/24 09:00 01/01/25 08:35 Valacyclovir Hcl 1,000 Mg Tablet PO 1,000 mg DAILY YOVANY Administration Discontinued Medications Generic Name Dose Route Start Last Admin Trade Name Freq PRN Reason Stop Dose Admin Acetaminophen 975 mg 12/29/24 18:24 12/29/24 20:43 Acetaminophen 325 Mg Tablet PO 12/29/24 18:25 975 mg ONCE STA Administration Acetaminophen 975 mg 12/30/24 14:22 12/30/24 14:27 Acetaminophen 325 Mg Tablet PO 12/30/24 14:23 975 mg ONCE ONE Administration Bisacodyl 10 mg 12/27/24 21:30 12/30/24 21:11 Bisacodyl 5 Mg Tablet. PO Not Given BEDTIME YOVANY Duloxetine HCl 60 mg 12/31/24 15:27 12/31/24 15:52 Duloxetine Hcl 60 Mg Capsule. PO 12/31/24 15:28 60 mg ONCE ONE Administration Nicotine Polacrilex 4 mg 12/27/24 21:18 12/30/24 14:11 Nicotine Polacrilex Lozenge 4 Mg Lozenge BUCCAL 4 mg Q8H PRN Administration nicotine cravings Non-Formulary Medication 1 tab 12/27/24 21:30 12/28/24 19:00 Glucosamine-Chondroitin PO Not Given BID YOVANY Non-Formulary 1 tab 12/28/24 21:00 01/01/25 08:37 Medication ( PO 1 tab Glucosamine- BID YOVANY Administration Chondroitin 1500/ 1103 Mg Complextablet) Potassium Chloride 40 meq 12/28/24 02:38 12/28/24 07:47 Potassium Chloride Packet 20 Meq Packet PO 12/28/24 02:39 Not Given ONCE ONE Pregabalin 50 mg 12/27/24 21:30 12/31/24 08:50 Pregabalin 50 Mg Capsule PO 50 mg BID YOVANY Administration Medical Decision Making Medical Decision Making MDM Narrative: 59-year-old female with a history of anxiety, depression, alcohol use disorder, chronic pain, fibromyalgia, COPD, who presents with SI. Patient was texting one of her friends verbalizing thoughts of self-harm. When police arrived to her home, the patient was found in her bed with a knife and medication in her hand. Patient emphatically denies SI, she states ?they want to do it I would, people said that I do things all the time but they down?. Patient does admit that her mother recently , which has been emotionally stressful. Problem: Chronic pain, psychiatric illness, alcohol use disorder History: Per patient I have considered the following differential diagnoses: SI, HI, decompensated psychiatric illness, drug/alcohol intoxication Plan: The patient continues to make vague comments of SI, she is contradicting herself. Patient also verbalized that she ?has no life, I can not eat, I am in constant pain, I can not walk, I have no one, . We will be ordering screening labs including serum ethanol and drug screen, we will be referring her to the care team, I foresee her being a bed search. I have independently reviewed the following tests: Labs: No leukocytosis, not anemic, potassium 3.2, no other electrolyte abnormality, ethanol 74, drug screen positive for cannabinoid, urine not infected Lab Data 12/27/24 22:47 12/27/24 22:47 Labs: Lab Results 12/27/24 12/27/24 Range/Units 21:38 22:47 WBC 8.0 (4.8-10.8) X10*3/uL RBC 4.19 L (4.20-5.50) X10*6/uL Hgb 13.8 (12.0-16.0) g/dl Hct 38.5 (37.0-47.0) % MCV 91.9 (80.0-98.0) fL MCH 32.9 (27.0-33.0) pg MCHC 35.8 H (31.0-35.0) g/dl RDW 12.4 (11.0-16.0) % Plt Count 253 D (160-400) X10*3/uL MPV 9.3 L (9.4-12.3) fL Immature Gran % (Auto) 0.4 (0.0-0.4) % Neut % (Auto) 43.4 L (45-73) % Lymph % (Auto) 47.7 H (20-40) % Yell % (Auto) 4.8 (2-11) % Eos % (Auto) 2.9 (0-4) % Baso % (Auto) 0.8 (0-2) % Lymph # (Auto) 3.8 (1.2-4.9) X10*3/uL Yell # (Auto) 0.4 (0.1-1.2) X10*3/uL Eos # (Auto) 0.2 (0.0-0.4) X10*3/uL Baso # (Auto) 0.1 (0.0-0.2) X10*3/uL Abs Immat Gran (auto) 0.03 (0.00-0.03) X10*3/uL Absolute Neuts (auto) 3.5 (2.0-8.3) x10*3/uL Absolute Nucleated RBC 0.000 (0.0-0.012) X10*3/uL Nucleated RBC % (auto) 0.0 (0.0-0.2) /100WBC Sodium 143 (135-145) mmol/L Potassium 3.2 L (3.3-5.1) mmol/L Chloride 100 (96-108) mmol/L Carbon Dioxide 31 H (22-29) mmol/L Anion Gap 15 (12-20) BUN 8 L (9-16) mg/dL Creatinine 0.67 (0.5-1.4) mg/dL Estim Creat Clear Calc 85.8 Estimated GFR > 60 Random Glucose 90 (60-115) mg/dL Calcium 9.0 D (8.4-10.2) mg/dL Total Bilirubin 0.4 (0.0-1.0) mg/dL AST 19 (5-31) U/L ALT 15 (0-31) U/L Alkaline Phosphatase 84 (39-117) U/L Total Protein 6.7 (6.5-8.0) g/dL Albumin 3.8 (3.5-5.0) g/dL Urine Color Yellow Urine Appearance Clear Urine pH 6.5 (5.0-9.0) Ur Specific [place] <= 1.005 (1.005-1.025) Urine Protein Negative (Neg-Trace) mg/dL Urine Glucose (UA) Negative (Negative) mg/dL Urine Ketones Negative (Negative) mg/dL Urine Blood Negative (Negative) Urine Nitrite Negative (Negative) Ur Leukocyte Esterase Trace H (Negative) Urine RBC 0-2 (0-2) /HPF Urine WBC 0-5 (0-5) /HPF Ur Squamous Epith Cells 0-2 (0-2) /HPF Urine Bacteria None Seen (None Seen) Hyaline Casts 0-2 (0-2) /LPF Urine Opiates Screen Not Detected (Not Detect) Ur Buprenorphine Scrn Not Detected (Not Detect) ng/mL Ur Oxycodone Screen Not Detected (Not Detect) ng/mL Urine Methadone Screen Not Detected (Not Detect) ng/mL Urine Fentanyl Screen Not Detected (Not Detect) Ur Barbiturates Screen Not Detected (Not Detect) Ur Phencyclidine Scrn Not Detected (Not Detect) Ur Amphetamines Screen Not Detected (Not Detect) U Benzodiazepines Scrn Not Detected (Not Detect) Urine Cocaine Screen Not Detected (Not Detect) U Marijuana (THC) Screen POSITIVE H (Not Detect) Ethyl Alcohol 74 mg/dL Discharge Plan Discharge Clinical Impression: Suicidal ideation Patient Disposition: Admitted As Inpatient Interventions: [place]-Suicide Risk Severity Scale Last Done: 12/31/24 16:00 Admission Worksheet (ED) Last Done: 12/30/24 16:03 Discharge Date/Time: 12/30/24 16:09
[2024-12-27 22:55] LABS: MANUAL DIFF FLAG NO
[2024-12-27 22:56] LABS: Basophils Absolute Auto 0.1 X10*3/uL (0.0-0.2); Basophils Percent Auto 0.8 % (0-2); Eosinophils Absolute Auto 0.2 X10*3/uL (0.0-0.4); Eosinophils Percent Auto 2.9 % (0-4); Hematocrit 38.5 % (37.0-47.0); Hemoglobin 13.8 g/dl (12.0-16.0); Imm Gran Abs Auto 0.03 X10*3/uL (0.00-0.03); Imm Gran Pct Auto 0.4 % (0.0-0.4); Lymphocytes Absolute Auto 3.8 X10*3/uL (1.2-4.9); Lymphocytes Percent Auto 47.7 % (20-40); Mean Corpuscular HGB Conc 35.8 g/dl (31.0-35.0); Mean Corpuscular Hemoglobin 32.9 pg (27.0-33.0); Mean Corpuscular Volume 91.9 fL (80.0-98.0); Mean Platelet Volume 9.3 fL (9.4-12.3); Monocytes Absolute Auto 0.4 X10*3/uL (0.1-1.2); Monocytes Percent Auto 4.8 % (2-11); Neutrophils Absolute Auto 3.5 x10*3/uL (2.0-8.3); Neutrophils Percent Auto 43.4 % (45-73); Platelet Count 253 X10*3/uL (160-400); Red Blood Count 4.19 X10*6/uL (4.20-5.50); Red Cell Distribution Width 12.4 % (11.0-16.0)
[2024-12-27 23:13] LABS: Alanine Aminotransferase 15 U/L (0-31); Albumin Level 3.8 g/dL (3.5-5.0); Alkaline Phosphatase 84 U/L (39-117); Anion Gap 15 (12-20); Aspartate Amino Transferase 19 U/L (5-31); Bilirubin Total 0.4 mg/dL (0.0-1.0); Blood Urea Nitrogen 8 mg/dL (9-16); Carbon Dioxide 31 mmol/L (22-29); Chloride 100 mmol/L (96-108); Creatinine Clr Calc Pharmacy 85.8; Estimated Glomerular Filt Rate > 60; Ethanol 74 mg/dL; Glucose Random 90 mg/dL (60-115); Potassium 3.2 mmol/L (3.3-5.1); Sodium 143 mmol/L (135-145); Total Protein 6.7 g/dL (6.5-8.0)
[2024-12-28 05:01] VITALS: BP 118/88; PULSE 90; RESP 16; TEMP 36.3; O2SAT 100
[2024-12-28] MEDS: Omeprazole 20 MG CAPSULE.DR PO (06:55)
[2024-12-28] MEDS: clonazePAM 1 MG TABLET PO ×2 (06:55→15:23)
[2024-12-28] MEDS: Nicotine Polacrilex Lozenge 4 MG LOZENGE BUCCAL (06:55)
[2024-12-28] MEDS: Ibuprofen 800 MG TABLET PO (06:55)
--- NOTE | 2024-12-28 07:02 | PC.NURSE ---
Assumed care of patient at 0645, patient appears to be in no apparent distress this am, woke up asking for clonazepam for anxiety. Patient rather tearful at this time but calm and cooperative. Continue plan of care for CARE team follow up
[2024-12-28 07:47] VITALS: BP 103/85; PULSE 98; RESP 16; TEMP 36.8; O2SAT 97
[2024-12-28] MEDS: Calcium + Vitamin D 250 MG TABLET PO (07:58)
[2024-12-28] MEDS: Pregabalin 50 MG CAPSULE PO ×2 (07:58→20:52)
[2024-12-28] MEDS: Multivitamin TABLET 1 TAB PO (07:58)
[2024-12-28] MEDS: Gabapentin 400 MG CAPSULE 800 MG PO ×3 (07:58→20:52)
[2024-12-28] MEDS: Thiamine HCL 100 MG TABLET PO (07:58)
[2024-12-28] MEDS: valACYclovir HCL 1,000 MG TABLET 1000 MG PO (07:58)
[2024-12-28] MEDS: Loperamide HCl 2 MG CAPSULE PO (08:03)
--- NOTE | 2024-12-28 10:16 | MHC.CARE ---
Pt will be a bedsearch. She isl not voluntary but psychiatry believes she is a candidate for a section 12b.
--- NOTE | 2024-12-28 11:16 | PC.NURSE ---
pt agitated after having conversation with Bryant, CARE team regarding the need to stay here to go inpatient. Pt reports you are not god, you don't have any reason to hold me here . Pt reports that she has no SI/HI thoughts however proceeded to state what do I have to do? Hang myself with the sheets in my room . Pt offered medication to calm down, pt declined
--- NOTE | 2024-12-28 15:42 | PC.NURSE ---
pt calm and cooperative, pt reports she is coming to terms with being here and going inpatient
--- NOTE | 2024-12-28 16:43 | PC.NURSE ---
family member visiting at this time
[2024-12-28] MEDS: Simethicone 80 MG TAB.CHEW PO ×2 (17:24→23:50)
--- NOTE | 2024-12-28 19:26 | PC.NURSE ---
patient is very active upon arrival to unit asking multiple questions of staff and very focused on medications
--- NOTE | 2024-12-28 20:30 | PC.NURSE ---
went to give client medications, pt resting
[2024-12-28] MEDS: Cyclobenzaprine HCl 10 MG TABLET PO (20:53)
[2024-12-28] MEDS: traZODone HCL 100 MG TABLET 200 MG PO (20:54)
[2024-12-28] MEDS: CHONDROITIN PO (21:10)
[2024-12-28] MEDS: GLUCOSAMINE PO (21:10)
[2024-12-29] VITALS: BP 110/84; PULSE 72; RESP 16
--- NOTE | 2024-12-29 07:34 | PC.NURSE ---
ASSUMED CARE OF PT AT 0645. NO APPARENT DISTRESS. LAYING IN BED COMFORTABLY. AWAITING [facility] BED.
[2024-12-29 08:02] VITALS: BP 111/69; PULSE 80; RESP 14; TEMP 36.2; O2SAT 96
[2024-12-29] MEDS: Fluticasone/Vilanterol 100/25 BLST.W.DEV 1 PUFF INHALE (08:03)
[2024-12-29] MEDS: Omeprazole 20 MG CAPSULE.DR PO (08:03)
[2024-12-29] MEDS: Albuterol Sulfate 90 MCG 8 GM INHALER 2 PUFF INHALE ×3 (08:03→21:08)
[2024-12-29] MEDS: GLUCOSAMINE PO (08:14)
[2024-12-29] MEDS: CHONDROITIN PO (08:14)
[2024-12-29] MEDS: valACYclovir HCL 1,000 MG TABLET 1000 MG PO (08:15)
[2024-12-29] MEDS: Pregabalin 50 MG CAPSULE PO ×2 (08:15→20:43)
[2024-12-29] MEDS: Multivitamin TABLET 1 TAB PO (08:15)
[2024-12-29] MEDS: Thiamine HCL 100 MG TABLET PO (08:15)
[2024-12-29] MEDS: Ibuprofen 800 MG TABLET PO ×2 (08:15→15:02)
[2024-12-29] MEDS: Calcium + Vitamin D 250 MG TABLET PO (08:15)
[2024-12-29] MEDS: clonazePAM 1 MG TABLET PO ×3 (08:15→20:42)
[2024-12-29] MEDS: Gabapentin 400 MG CAPSULE 800 MG PO ×3 (08:16→20:43)
--- NOTE | 2024-12-29 09:00 | MHC.EDTECH ---
AM care done,Didn't want to shower but giving wipes to wash. RN aware
[2024-12-29] MEDS: Nicotine Polacrilex Lozenge 4 MG LOZENGE BUCCAL (09:41)
--- NOTE | 2024-12-29 10:36 | PHA.MEDREC ---
Addendum entered by Genevieve Blum RPh 12/29/24 10:46: reviewed by [facility]. Original Note: Pharmacy Consult ? Medication Reconciliation Pharmacy has completed the medication reconciliation. Reviewed med rec done by nursing. Nurse Jay confirmed miconazole cream, nicotine lozenges, simethicone, and tumeric capsules with the patient.
[2024-12-29] MEDS: Simethicone 80 MG TAB.CHEW PO (14:10)
[2024-12-29 16:00] VITALS: BP 100/76; PULSE 93; RESP 18; TEMP 36.6; O2SAT 93
[2024-12-29] MEDS: Acetaminophen 325 MG TABLET 975 MG PO (20:43)
[2024-12-29] MEDS: Cyclobenzaprine HCl 10 MG TABLET PO (20:43)
[2024-12-29] MEDS: Lidocaine 4 % Patch ADH..PATCH 1 PATCH TRANSDERMA (20:44)
[2024-12-29] MEDS: Fluticasone Propionate Nasal 16 GM SPRAY 1 SPRAY NOSTRIL-B (21:04)
[2024-12-29] MEDS: traZODone HCL 100 MG TABLET 200 MG PO (22:16)
--- NOTE | 2024-12-30 | ECG_ITS ---
Test Reason : CHECK QTC Blood Pressure : */* mmHG Vent. Rate : 91 BPM Atrial Rate : 91 BPM P-R Int : 150 ms QRS Dur : 92 ms QT Int : 376 ms P-R-T Axes : 20 65 58 degrees QTcB Int : 462 ms Normal sinus rhythm Normal ECG When compared with ECG of 06-May-2013 12:50, No significant change was found Referred By: Izabela Mcneal Electronically Signed By: DAVINA BERKOWITZ MD
[2024-12-30] MEDS: Omeprazole 20 MG CAPSULE.DR PO (07:14)
[2024-12-30] MEDS: Thiamine HCL 100 MG TABLET PO (07:14)
[2024-12-30] MEDS: Fluticasone/Vilanterol 100/25 BLST.W.DEV 1 PUFF INHALE (07:14)
[2024-12-30] MEDS: Calcium + Vitamin D 250 MG TABLET PO (07:14)
--- NOTE | 2024-12-30 07:16 | PC.NURSE ---
Assumed care of patient at 0645, patient appears to be in no apparent distress this am, taking am medications prior to breakfast. Patient remains calm and cooperative, offering no complaints to this RN. Patient aware of plan of care for IPL[facility]
[2024-12-30 08:11] VITALS: BP 122/73; PULSE 102; RESP 20; TEMP 37.1; O2SAT 98
[2024-12-30] MEDS: Pregabalin 50 MG CAPSULE PO ×2 (08:20→21:09)
[2024-12-30] MEDS: valACYclovir HCL 1,000 MG TABLET 1000 MG PO (08:20)
[2024-12-30] MEDS: Gabapentin 400 MG CAPSULE 800 MG PO ×3 (08:20→21:07)
[2024-12-30] MEDS: Multivitamin TABLET 1 TAB PO (08:21)
[2024-12-30] MEDS: CHONDROITIN PO ×2 (08:21→22:35)
[2024-12-30] MEDS: GLUCOSAMINE PO ×2 (08:21→22:35)
[2024-12-30] MEDS: Fluticasone Propionate Nasal 16 GM SPRAY 1 SPRAY NOSTRIL-B (08:21)
[2024-12-30] MEDS: clonazePAM 1 MG TABLET PO ×3 (08:41→21:08)
--- NOTE | 2024-12-30 08:42 | PC.NURSE ---
pt reporting moderate anxiety this am, PRN Clonazepam provided per MAR
[2024-12-30] MEDS: Albuterol Sulfate 90 MCG 8 GM INHALER 2 PUFF INHALE (09:13)
[2024-12-30] MEDS: Nicotine Polacrilex Lozenge 4 MG LOZENGE BUCCAL ×3 (09:15→19:07)
[2024-12-30] MEDS: Simethicone 80 MG TAB.CHEW PO ×2 (14:12→18:28)
[2024-12-30] MEDS: Acetaminophen 325 MG TABLET 975 MG PO (14:27)
[2024-12-30 17:02] VITALS: BP 176/127; PULSE 110; RESP 18; TEMP 37.2; O2SAT 100
[2024-12-30 17:04] VITALS: BMI 26.9
[2024-12-30] MEDS: Ibuprofen 800 MG TABLET PO (17:32)
[2024-12-30 18:04] VITALS: BP 124/82; PULSE 108; RESP 18; TEMP 36.6
--- NOTE | 2024-12-30 18:06 | PC.ADMIT ---
Nursing admission note: 59 year old female DX: Major Depression, recurrent, moderate. WESTLEY. Referred for treatment by CARE team. Signed conditional voluntary followed by 3 day notice. Patient was brought in by ambulance secondary to worsening depression and suicidal ideation. Patient arrived to ED from her home after her friend called police to notify them patient sent a text threatening to commit suicide. Patient was found by police lying in her bed with a knife and medications in her hand. Patient is A+O x3. Engaged easily. Cooperative with admission process. Endorses depressed mood, denies SI/HI plan or intent at this time. Tearful at times. Endorses anxiety. Reports grieving loss of her mother in October 2024. Denies A/V hallucinations, no overt psychosis or expressed delusions. Tangential, in need of redirection back to topic frequently throughout interview. Reports appetite varies, up and down . Sleep reported to be poor. TOX screen positive for THC. Patient ambulates using a cane, provided walker per protocol. Reports limited mobility due to on going back pain. States she feels hopeless, helpless. States she requires a lot of assistance she is not receiving. See nursing assessment for further details, crisis evaluation for complete details.
[2024-12-30 20:00] VITALS: BP 136/84; PULSE 106; RESP 18; TEMP 36.9; O2SAT 97
[2024-12-30] MEDS: Cyclobenzaprine HCl 10 MG TABLET PO (21:08)
[2024-12-30] MEDS: Lidocaine 4 % Patch ADH..PATCH 1 PATCH TRANSDERMA (21:17)
[2024-12-30] MEDS: traZODone HCL 100 MG TABLET 200 MG PO (22:35)
[2024-12-31] MEDS: clonazePAM 1 MG TABLET PO ×3 (06:30→19:52)
[2024-12-31] MEDS: Ibuprofen 800 MG TABLET PO ×2 (06:30→20:43)
[2024-12-31] MEDS: Omeprazole 20 MG CAPSULE.DR PO (06:30)
[2024-12-31] MEDS: Albuterol Sulfate 90 MCG 8 GM INHALER 2 PUFF INHALE (06:34)
[2024-12-31 07:25] VITALS: BP 107/69; PULSE 98; RESP 16; TEMP 36.4; O2SAT 97
[2024-12-31 07:54] LABS: Estimated Average Glucose 100 mg/dL; Hemoglobin A1C 124.3622 umol/L; Hemoglobin A1c % 5.1 % (<6.0)
[2024-12-31 08:06] LABS: Cholesterol 165 mg/dL (<200); HDL Cholesterol 53 mg/dL (>40); LDL Cholesterol Calculated 93 mg/dL (<100); Triglycerides 96 mg/dL (<150)
[2024-12-31 08:23] LABS: Free T4 (Free Thyroxine) 1.01 ng/dL (0.71-1.85); Thyroid Stimulating Hormone 0.87 uIU/mL (0.32-4.0)
[2024-12-31 08:35] LABS: Folate 12.5 ng/mL (> or = 4.0); Vitamin B12 422 pg/mL (200-900)
[2024-12-31] MEDS: CHONDROITIN PO ×2 (08:49→20:51)
[2024-12-31] MEDS: GLUCOSAMINE PO ×2 (08:49→20:51)
[2024-12-31] MEDS: Fluticasone/Vilanterol 100/25 BLST.W.DEV 1 PUFF INHALE (08:49)
[2024-12-31] MEDS: Pregabalin 50 MG CAPSULE PO (08:50)
[2024-12-31] MEDS: Calcium + Vitamin D 250 MG TABLET PO (08:50)
[2024-12-31] MEDS: valACYclovir HCL 1,000 MG TABLET 1000 MG PO (08:50)
[2024-12-31] MEDS: Gabapentin 400 MG CAPSULE 800 MG PO ×3 (08:50→20:42)
[2024-12-31] MEDS: Multivitamin TABLET 1 TAB PO (08:51)
[2024-12-31] MEDS: Acetaminophen 325 MG TABLET 650 MG PO (08:51)
[2024-12-31] MEDS: Thiamine HCL 100 MG TABLET PO (08:54)
[2024-12-31] MEDS: Nicotine Polacrilex Lozenge 4 MG LOZENGE BUCCAL ×3 (09:50→19:50)
[2024-12-31] MEDS: Simethicone 80 MG TAB.CHEW PO ×2 (14:16→21:02)
[2024-12-31] MEDS: DULoxetine HCl 60 MG CAPSULE.DR PO (15:52)
[2024-12-31 20:00] VITALS: BP 112/83; PULSE 102; RESP 16; TEMP 36.4; O2SAT 94
[2024-12-31] MEDS: Cyclobenzaprine HCl 10 MG TABLET PO (20:42)
[2024-12-31] MEDS: Pregabalin 100 MG CAPSULE PO (20:42)
[2024-12-31] MEDS: Lidocaine 4 % Patch ADH..PATCH 1 PATCH TRANSDERMA (21:04)
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
[2024-12-31] MEDS: traZODone HCL 100 MG TABLET 200 MG PO (23:09)
[2025-01-01] MEDS: Albuterol Sulfate 90 MCG 8 GM INHALER 2 PUFF INHALE ×2 (06:34→13:40)
[2025-01-01] MEDS: Ibuprofen 800 MG TABLET PO ×3 (06:35→22:29)
[2025-01-01] MEDS: clonazePAM 1 MG TABLET PO ×3 (06:35→18:49)
[2025-01-01] MEDS: Omeprazole 20 MG CAPSULE.DR PO (06:35)
[2025-01-01] MEDS: Nicotine Polacrilex Lozenge 4 MG LOZENGE BUCCAL ×3 (07:30→21:56)
[2025-01-01 08:00] VITALS: BP 124/59; PULSE 101; RESP 16; TEMP 36.4; O2SAT 97
[2025-01-01] MEDS: DULoxetine HCl 60 MG CAPSULE.DR PO (08:32)
[2025-01-01] MEDS: Thiamine HCL 100 MG TABLET PO (08:33)
[2025-01-01] MEDS: Calcium + Vitamin D 250 MG TABLET PO (08:33)
[2025-01-01] MEDS: Gabapentin 400 MG CAPSULE 800 MG PO ×3 (08:33→22:29)
[2025-01-01] MEDS: Pregabalin 100 MG CAPSULE PO ×2 (08:35→21:04)
[2025-01-01] MEDS: valACYclovir HCL 1,000 MG TABLET 1000 MG PO (08:35)
[2025-01-01] MEDS: Multivitamin TABLET 1 TAB PO (08:36)
[2025-01-01] MEDS: GLUCOSAMINE PO (08:37)
[2025-01-01] MEDS: CHONDROITIN PO (08:37)
[2025-01-01] MEDS: Fluticasone/Vilanterol 100/25 BLST.W.DEV 1 PUFF INHALE (08:51)
[2025-01-01] MEDS: Fluticasone Propionate Nasal 16 GM SPRAY 1 SPRAY NOSTRIL-B (09:14)
[2025-01-01] MEDS: Miconazole 2 % Extra Thick Cr 56.7 Gm Tube 1 APPL TOPICAL (09:15)
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
[2025-01-01] MEDS: Simethicone 80 MG TAB.CHEW PO (13:39)
[2025-01-01] MEDS: Acetaminophen 325 MG TABLET 650 MG PO (14:30)
[2025-01-01] MEDS: GLUCOSAMINE CHONDROITIN 1 EACH PO (17:00)
[2025-01-01 20:00] VITALS: BP 107/65; PULSE 87; RESP 16; TEMP 37.4; O2SAT 96
[2025-01-01] MEDS: traZODone HCL 100 MG TABLET 200 MG PO (22:28)
[2025-01-01] MEDS: Lidocaine 4 % Patch ADH..PATCH 1 PATCH TRANSDERMA (22:28)
[2025-01-01] MEDS: Cyclobenzaprine HCl 10 MG TABLET PO (22:29)
[2025-01-02] MEDS: Omeprazole 20 MG CAPSULE.DR PO (06:07)
[2025-01-02] MEDS: clonazePAM 1 MG TABLET PO (06:43)
[2025-01-02] MEDS: Ibuprofen 800 MG TABLET PO (06:43)
[2025-01-02] MEDS: Acetaminophen 325 MG TABLET 650 MG PO (06:43)
[2025-01-02] MEDS: Nicotine Polacrilex Lozenge 4 MG LOZENGE BUCCAL (06:50)
[2025-01-02 07:53] VITALS: BP 109/70; PULSE 91; RESP 16; TEMP 36.4; O2SAT 98
[2025-01-02] MEDS: Pregabalin 100 MG CAPSULE PO (08:47)
[2025-01-02] MEDS: Multivitamin TABLET 1 TAB PO (08:47)
[2025-01-02] MEDS: valACYclovir HCL 1,000 MG TABLET 1000 MG PO (08:47)
[2025-01-02] MEDS: Thiamine HCL 100 MG TABLET PO (08:48)
[2025-01-02] MEDS: Gabapentin 400 MG CAPSULE 800 MG PO (08:48)
[2025-01-02] MEDS: DULoxetine HCl 60 MG CAPSULE.DR PO (08:48)
[2025-01-02] MEDS: GLUCOSAMINE CHONDROITIN 1 EACH PO (08:49)
[2025-01-02] MEDS: Calcium + Vitamin D 250 MG TABLET PO (08:49)
[2025-01-02] MEDS: Fluticasone Propionate Nasal 16 GM SPRAY 1 SPRAY NOSTRIL-B (08:51)
[2025-01-02] MEDS: Fluticasone/Vilanterol 100/25 BLST.W.DEV 1 PUFF INHALE (08:52)
[2025-01-02] MEDS: Albuterol Sulfate 90 MCG 8 GM INHALER 2 PUFF INHALE (09:05)
[2025-01-02] MEDS: Miconazole 2 % Extra Thick Cr 56.7 Gm Tube 1 APPL TOPICAL (09:05)
== END 2025-01-02 10:51 | disposition home or self-care (01) | DRG 754 ==
LOC: HO.ED 12-28 08:06 → HO.PADLT16 12-30 14:52
PROVIDERS: Emergency Medicine; Admitting Provider Psychiatry & Neurology Psychiatry; Emergency Provider Emergency Medicine; PCP Internal Medicine; Visit Provider Psychiatry & Neurology Psychiatry
DX: F32.A Depression, unspecified (principal); R45.851 Suicidal ideations; M54.50 Low back pain, unspecified; G62.9 Polyneuropathy, unspecified; F17.210 Nicotine dependence, cigarettes, uncomplicated; Z71.6 Tobacco abuse counseling; Y90.3 Blood alcohol level of 60-79 mg/100 ml; Z79.899 Other long term (current) drug therapy
CPT/HCPCS: 36415; 80053; 80061; 80307; 81001; 82607; 82746; 83036; 84439; 84443; 85025; 93005; 99285; S9485

== ENCOUNTER → 2024-12-30 08:52 | Outpatient (BNV) | payer OTHER, SELFPAY | PROVIDERS: Emergency Provider Emergency Medicine; PCP Internal Medicine; Visit Provider Internal Medicine Cardiovascular Disease | DX: Z13.6 Encounter for screening for cardiovascular disorders (principal) | CPT/HCPCS: 93010 ==

== ENCOUNTER → 2024-12-30 14:52 | Outpatient (BNV) | payer OTHER, SELFPAY | PROVIDERS: Admitting Provider Psychiatry & Neurology Psychiatry; Emergency Provider Emergency Medicine; PCP Internal Medicine; Visit Provider Psychiatry & Neurology Psychiatry | DX: F32.2 Major depressive disorder, single episode, severe without psychotic features (principal); M54.50 Low back pain, unspecified; G89.29 Other chronic pain; G62.9 Polyneuropathy, unspecified | CPT/HCPCS: 90792 ==

== ENCOUNTER 2025-03-10 21:45 | Outpatient (REF) | payer OTHER, SELFPAY | END 2025-03-10 21:46 | disposition home or self-care (01) | LOC: HO.HOSX 21:45 | PROVIDERS: Visit Provider Physician Assistant | DX: Z13.89 Encounter for screening for other disorder (principal) ==

== ENCOUNTER 2025-05-07 08:36 | Outpatient (REF) | payer OTHER, SELFPAY | END 2025-05-07 08:37 | disposition home or self-care (01) | LOC: HO.HOSX 08:36 | PROVIDERS: Visit Provider Physician Assistant | DX: Z13.89 Encounter for screening for other disorder (principal) ==

== ENCOUNTER 2025-05-21 12:16 | Outpatient (AMB) | payer OTHER, SELFPAY ==
--- NOTE | 2025-05-21 12:22 | A.OFFVIS_ITS ---
Vital Signs 05/21/25 12:24 Height 5 ft 7 in Weight 154 lb BMI 24.1 Intake Visit Reasons: Recurrent vaginal itching Skip Pitman Required: No Information Interpreted: non-clinical & clinical [employer] Consultant: [employer] Consultant Present Accompanied by: Self / Same As Patient Allergies latex (LATEX) Allergy (Mild, Verified 05/21/25 12:25) RASH codeine (CODEINE) Adverse Reaction (Intermediate, Verified 05/21/25 12:25) UPSET STOMACH naproxen (NAPROXEN) Adverse Reaction (Intermediate, Verified 05/21/25 12:25) VOMITING Post menopausal: Yes HPI Comments Details: Presenting complaining of urinary frequency and dysuria in addition to vulvovaginal discharge with foul odor [facility] Medical History (Updated 05/21/25 @ 12:51 by Adolfo Bailey MD) Alcoholism Constipation Malnutrition Menopause Bilateral ovarian cysts Submucous uterine fibroid Nicotine dependence, cigarettes, uncomplicated WESTLEY (generalized anxiety disorder) Moderate recurrent major depression Chronic GERD Memory loss Leukocytosis Abdominal bloating Fibromyalgia Surgical History H/O excision of mass (02/07/24) History of lymph node excision History of endoscopy History of colonoscopy History of eye surgery Family History Father No problems noted. Mother Hypertension Diabetes Maternal Grandmother Cervical cancer Ovarian cancer Family/Other Mental health disorder Substance use disorder Social History (System 04/04/25 @ 09:06 by Aggie Booth) Household Members: Children Household Members Other:: son Housing: Apartment Do you presently have visiting nurse or other home services: No Alcohol intake: current Alcohol intake frequency: a few times a week Alcohol type: wine Comment: 5 minute checks Patient Tobacco Use Status: Current everyday Tobacco user Tobacco use type: Cigarette Cigarette Packs Per Day: 1 Cigarettes Per Day: 20.0 Years Smoked: 40 e-Cigarette/Vaping Use: Never Used Second Hand Smoke Exposure: Yes Substance Use Type: Marijuana service: No Current occupational status: unemployed and disabled 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 Sexual orientation: Straight/Heterosexual Gender identity: Female Cognitive needs: Yes (cane/walker) Hearing needs: No Vision needs: No Review of Systems Const All systems reviewed & are unremarkable except as noted in HPI and below Physical Exam General: Yes no CVA tenderness External Female Exam: normal external appearance and normal appearance of the urethra Speculum Exam - Vagina: normal appearance of the vagina, normal palpation, no lesions and no masses Speculum Exam - Cervix: normal appearance of the cervix, normal palpation, no lesions, no masses and nontender Bimanual exam- vagina & uterus: normal bimanual exam, normal palpation, uterine size normal, normal palpation, uterine shape normal, No Cervical tenderness present and non-tender Bimanual Exam- Adnexa, other: normal adnexae Back/Spine/Pelvis Back: no CVA tenderness Assessment & Plan Assessment & Plan (1) Vulvovaginitis: Code(s): N76.0 - Acute vaginitis Category: Medical Plan: GC and chlamydia cultures with BV panel taken. Will check the results and treat accordingly (2) Microscopic hematuria: Code(s): R31.29 - Other microscopic hematuria Category: Medical Plan: Urine dip showed microscopic hematuria, urine culture sent. Will repeat urine dip in 2 weeks. Discussed with the patient the possible causes of microscopic hematuria including but not limited to: interstitial cystitis, polyps, stones, masses, urethral inflammatory processes and others. If Urine Culture is negative and repeat urine dip in 2 weeks shows persistent microscopic hematuria, will proceed with CT abdomen/pelvis and urology referral. Instructions given the patient to schedule a 2 week urine dip follow-up appointment. All questions answered and the patient verbalized understanding. Coding Level of Care Code Est Pt Level 3 (72878) Diagnoses Vulvovaginitis N76.0 Microscopic hematuria R31.29
[2025-05-21 12:24] VITALS: BMI 24.1
--- NOTE | 2025-05-21 13:48 | MHC.OFFVIS ---
Vital Signs 05/21/25 12:24 Height 5 ft 7 in Weight 154 lb BMI 24.1 Intake Visit Reasons: Recurrent vaginal itching Allergies latex (LATEX) Allergy (Mild, Verified 05/21/25 12:25) RASH codeine (CODEINE) Adverse Reaction (Intermediate, Verified 05/21/25 12:25) UPSET STOMACH naproxen (NAPROXEN) Adverse Reaction (Intermediate, Verified 05/21/25 12:25) VOMITING [facility] Medical History (Updated 05/21/25 @ 12:51 by Adolfo Bailey MD) Alcoholism Constipation Malnutrition Menopause Bilateral ovarian cysts Submucous uterine fibroid Nicotine dependence, cigarettes, uncomplicated WESTLEY (generalized anxiety disorder) Moderate recurrent major depression Chronic GERD Memory loss Leukocytosis Abdominal bloating Fibromyalgia Surgical History H/O excision of mass (02/07/24) History of lymph node excision History of endoscopy History of colonoscopy History of eye surgery Family History Father No problems noted. Mother Hypertension Diabetes Maternal Grandmother Cervical cancer Ovarian cancer Family/Other Mental health disorder Substance use disorder Social History (System 04/04/25 @ 09:06 by Aggie Booth) Household Members: Children Household Members Other:: son Housing: Apartment Do you presently have visiting nurse or other home services: No Alcohol intake: current Alcohol intake frequency: a few times a week Alcohol type: wine Comment: 5 minute checks Patient Tobacco Use Status: Current everyday Tobacco user Tobacco use type: Cigarette Cigarette Packs Per Day: 1 Cigarettes Per Day: 20.0 Years Smoked: 40 e-Cigarette/Vaping Use: Never Used Second Hand Smoke Exposure: Yes Substance Use Type: Marijuana service: No Current occupational status: unemployed and disabled 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 Sexual orientation: Straight/Heterosexual Gender identity: Female Cognitive needs: Yes (cane/walker) Hearing needs: No Vision needs: No Physical Exam Vital Signs: BMI result Body Mass Index 24.1 Results AMB Urinalysis, Automated UA Leukoctes Sal/uL Last Edit by Karin Lawson LPN on 05/21/25 13:49 UA Nitrite Last Edit by Karin Lawson LPN on 05/21/25 13:49 UA Urobilinogen 3.5 mg/dL Last Edit by Karin Lawson LPN on 05/21/25 13:49 UA Protein mg/dL Last Edit by Karin Lawson, [employer] on 05/21/25 13:49 UA pH 6.0 Last Edit by Karin Lawson, [employer] OFFICER on 05/21/25 13:49 UA Blood 200 Gee/uL Last Edit by Karin Lawson, [employer] OFFICER on 05/21/25 13:49 UA Specific [place] 1.005 Last Edit by Karin Lawson [employer] OFFIC[employer] on 05/21/25 13:49 UA Ketone Last Edit by Karin Lawson, [employer] OFFICER on 05/21/25 13:49 UA Bilirubin mg/dL Last Edit by Karin Lawson [employer] OFF[employer] on 05/21/25 13:49 UA Glucose mg/dL Last Edit by Karin Lawson [employer] on 05/21/25 13:49 Assessment & Plan Assessment & Plan (1) Vulvovaginitis: Code(s): N76.0 - Acute vaginitis Category: Medical (2) Microscopic hematuria: Code(s): R31.29 - Other microscopic hematuria Category: Medical Orders: Orders CT NG by PCR Vag/Cerv Today Z11.3 - Encounter for screening for infections with a predominantly sexual mode of transmission AMB Urinalysis Automated Today N89.8 - Other specified noninflammatory disorders of vagina Bacterial Vaginosis Panel Today Z11.3 - Encounter for screening for infections with a predominantly sexual mode of transmission Urine Culture Today R31.29 - Other microscopic hematuria Coding Diagnoses Vulvovaginitis N76.0 Microscopic hematuria R31.29
== END 2025-05-21 12:55 | disposition home or self-care (01) ==
LOC: HO.HWS 12:16
PROVIDERS: Visit Provider Obstetrics & Gynecology
DX: N76.0 Acute vaginitis (principal); R31.29 Other microscopic hematuria; N89.8 Other specified noninflammatory disorders of vagina
CPT/HCPCS: 99213

== ENCOUNTER 2025-05-21 12:16 | Outpatient (REF) | payer OTHER, SELFPAY | END 2025-05-21 12:17 | disposition home or self-care (01) | LOC: HO.LNP 12:16 | PROVIDERS: Visit Provider Obstetrics & Gynecology | DX: R31.29 Other microscopic hematuria (principal); N76.0 Acute vaginitis | CPT/HCPCS: 81003; 99212 ==

== ENCOUNTER 2025-05-21 13:08 | Outpatient (REF) | payer OTHER, SELFPAY ==
[2025-05-21 16:52] LABS: Bacterial Vaginosis PCR NEGATIVE (Negative); Candida Group PCR NOT DETECTED (Not Detect); Candida glab krusei PCR NOT DETECTED (Not Detect); Trichomonas vaginalis PCR NOT DETECTED (Not Detect)
[2025-05-21 17:22] LABS: CT PCR NOT DETECTED (Not Detect.); NG PCR NOT DETECTED (Not Detect.)
== END 2025-05-21 13:09 | disposition home or self-care (01) ==
LOC: HO.LAB 13:08
PROVIDERS: Visit Provider Obstetrics & Gynecology
DX: Z11.3 Encounter for screening for infections with a predominantly sexual mode of transmission (principal); Z20.2 Contact with and (suspected) exposure to infections with a predominantly sexual mode of transmission; R31.29 Other microscopic hematuria
CPT/HCPCS: 81515; 87086; 87491; 87591

== ENCOUNTER 2025-05-30 16:33 | Outpatient (AMB) | payer OTHER, SELFPAY ==
[2025-05-30 16:54] VITALS: BP 106/70; PULSE 112; RESP 18; TEMP 36.1; O2SAT 96; BMI 25.9
--- NOTE | 2025-05-30 16:54 | A.OFFPC_ITS ---
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 Accompanied by: Self / Same As Patient Allergies latex (LATEX) Allergy (Mild, Verified 05/30/25 17:02) RASH codeine (CODEINE) Adverse Reaction (Intermediate, Verified 05/30/25 17:02) UPSET STOMACH naproxen (NAPROXEN) Adverse Reaction (Intermediate, Verified 05/30/25 17:02) VOMITING Medication List - Last Reconciled 05/30/25 by SUSHANT Israel albuterol sulfate 90 mcg/actuation (Ventolin HFA) 2 puffs inhalation Q4-6H PRN 30 days albuterol sulfate 2.5 mg (3 mL) inhalation Q6H PRN 30 days back brace As directed bisacodyl (Dulcolax (bisacodyl)) 10 mg (2 x 5 mg) PO BEDTIME calcium carbonate-vitamin D3 500 mg-10 mcg (400 unit) (Oyster Shell Calcium- Vitamin D3) 1 tab PO BID 90 days cane As directed clonazepam 1 mg PO TID PRN cyclobenzaprine 10 mg PO BEDTIME PRN 3 months duloxetine 60 mg PO QAM esomeprazole magnesium 40 mg PO DAILY fluticasone furoate-vilanterol 50-25 mcg/dose (Breo Ellipta) 1 inh inhalation Q24H 60 days fluticasone propionate 50 mcg/actuation (Flonase Allergy Relief) 1 spray intranasal DAILY food supplemt, lactose-reduced (Ensure Plus) 1 ea PO BID 25 days gabapentin 800 mg PO TID 3 months glucosamine-chondroitin 750-600 mg 1 tab PO BID ibuprofen 800 mg PO TID PRN 30 days incontinence pad, liner, disp Use 1 pad 4 times a day lidocaine 5% 1 patch topical DAILY PRN 30 days loperamide (Imodium A-D) 2 mg PO Q4H PRN metronidazole 500 mg PO BID 5 days miconazole nitrate 2% (Antifungal (miconazole)) 1 appl topical DAILY 3 days [id number]-[id number]-calcium carb-K1 400 mcg-500 mg calcium-20 mcg (Women's 50 Plus Multivitamin) 1 tab PO DAILY nebulizers (AeroEclipse II Nebulizer) As directed nebulizers (Compact Compressor Nebulizer) As directed nebulizers (AeroEclipse II Nebulizer) As directed nicotine (polacrilex) 4 mg buccal Q8H PRN 30 days nitrofurantoin macrocrystal 100 mg PO BID 5 days pregabalin (Lyrica) 100 mg PO BID 30 days simethicone 80 mg PO TID-QID PRN thiamine HCl (vitamin B1) 100 mg PO DAILY 90 days trazodone 200 mg PO BEDTIME PRN [Tumeric Curcumin Complex 1 cap PO DAILY] valacyclovir 1,000 mg PO DAILY 90 days walker As directed Tobacco use date assessed: 05/30/25 Dental Screening Dental Screen Date: 05/30/25 Did you have a dental visit in the last 12 months?: No Did you have a dental problem in the last 6 months where you did not have access to dental care?: No Was dental information given to patient?: No HPI thrush HPI Details The patient is a 59-year-old female presenting complains of tongue irritation Reports that she has not brush her teeth and couple of days as a result her tongue was affected The patient also reports recurrent cracking of the lips Patient has a history of inhaler use due to COPD Denies sore throat, dental pain and difficulty swallowing PFSH Medical History Alcoholism Constipation Malnutrition Menopause Bilateral ovarian cysts Submucous uterine fibroid Nicotine dependence, cigarettes, uncomplicated WESTLEY (generalized anxiety disorder) Moderate recurrent major depression Chronic GERD Memory loss Leukocytosis Abdominal bloating Fibromyalgia Surgical History H/O excision of mass (02/07/24) History of lymph node excision History of endoscopy History of colonoscopy History of eye surgery Family History Father No problems noted. Mother Hypertension Diabetes Maternal Grandmother Cervical cancer Ovarian cancer Family/Other Mental health disorder Substance use disorder Social History Household Members: Children Household Members Other:: son Housing: Apartment Do you presently have visiting nurse or other home services: No Alcohol intake: current Alcohol intake frequency: a few times a week Alcohol type: wine Comment: 5 minute checks Patient Tobacco Use Status: Current everyday Tobacco user Tobacco use type: Cigarette Cigarette Packs Per Day: 1 Cigarettes Per Day: 20.0 Years Smoked: 40 e-Cigarette/Vaping Use: Never Used Second Hand Smoke Exposure: Yes Substance Use Type: Marijuana service: No Current occupational status: unemployed and disabled 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 Trevon Bowden, Kathleen Oconnor, German Quintero and colleagues, with an educational ezke from [employer]. Review of Systems Const Denies body aches, Denies chills, Denies fever(s) and Denies headache(s) Eyes Denies loss of vision ENT Denies dental pain, Denies headache(s), Denies hoarseness, Denies mouth pain, Denies neck pain, Denies throat swelling and Denies tongue swelling Card Denies chest pain, Denies rapid heart rate and Denies dyspnea Resp Denies cough, Denies dyspnea and Denies wheezing Musc Denies neck pain Neuro Denies headache(s) and Denies loss of vision Aller/Immun Denies throat swelling, Denies tongue swelling and Denies wheezing Physical exam (Primary Care) Vital Signs: Last Vital Signs Temp 96.9 F 05/30/25 16:54 Pulse 112 H 05/30/25 16:54 Resp 18 05/30/25 16:54 BP 106/70 05/30/25 16:54 Pulse Ox 96 05/30/25 16:54 Oxygen Delivery Method Room Air 05/30/25 16:54 BMI result Body Mass Index 25.9 Tobacco/Smoking Status: Tobacco use Status Tobacco use date assessed 05/30/25 05/30/25 17:01 Patient Tobacco Use Status Current everyday Tobacco 05/30/25 17:01 Tobacco use type Cigarette 05/30/25 17:01 e-Cigarette/Vaping Use Never Used 05/30/25 17:01 Thrive Assessment: Date of Thrive Assessment Date Thrive assessed 12/31/24 05/30/25 17:01 Const General: cooperative Orientation/consciousness: oriented to person, oriented to place, oriented to t milagros and patient oriented x3 HENMT Head: Yes normal to inspection Ears: hearing grossly normal bilaterally Mouth: lip abnormal (multiple cracked areas, erythema and bumpy appearing) and tongue abnormal with white coating Eyes Pupils: Equal, round and reactive pupils present Neck Neck: Yes no lymphadenopathy Resp Effort & Inspection: normal respiratory effort Auscultation: clear to auscultation bilaterally Neuro General: oriented to person, oriented to place, oriented to time and patient oriented x3 Cranial nerves: Yes Equal, round and reactive pupils present Coding Level of Care Code Est Pt Level 3 (21276) Diagnoses Oral thrush B37.0 Angular cheilitis K13.0 Time Spent (min) 31 Assessment & Plan Assessment & Plan (1) Oral thrush: Code(s): B37.0 - Candidal stomatitis Category: Medical Plan: The patient was prescribed Nystatin for the treatment of oral thrush, to be used as a swish and swallow medication. Instructions were given to avoid alcohol-containing mouthwashes and to maintain oral hygiene by brushing and flossing twice daily. (2) Angular cheilitis: Code(s): K13.0 - Diseases of lips Category: Medical Plan: Nystatin topical ointment daily to affected areas times 14 days then may use as needed Medications: New nystatin swish and retain in the suspension in the mouth for as long as possible then swallow 500,000 units (5 mL) PO QID 280 mL 0RF 14 days nystatin 1 appl topical DAILY 30 grams 0RF 14 days K13.0 - Diseases of lips
== END 2025-05-30 17:35 | disposition home or self-care (01) ==
LOC: HO.HMCH 16:33
DX: B37.0 Candidal stomatitis (principal); K13.0 Diseases of lips

== ENCOUNTER → 2025-05-30 16:33 | Outpatient (BNVA) | payer OTHER, SELFPAY | DX: B37.0 Candidal stomatitis (principal); K13.0 Diseases of lips | CPT/HCPCS: 99212 ==

== ENCOUNTER 2025-06-26 13:32 | Outpatient (AMB) | payer OTHER, SELFPAY ==
[2025-06-26 13:36] VITALS: BP 130/80; PULSE 105; TEMP 36.3; O2SAT 99; BMI 24.9
--- NOTE | 2025-06-26 13:36 | A.OFFPC_ITS ---
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 Accompanied by: Self / Same As Patient Allergies latex (LATEX) Allergy (Mild, Verified 06/26/25 13:58) RASH codeine (CODEINE) Adverse Reaction (Intermediate, Verified 06/26/25 13:58) UPSET STOMACH naproxen (NAPROXEN) Adverse Reaction (Intermediate, Verified 06/26/25 13:58) VOMITING Medication List - Last Reconciled 06/26/25 by Jeimy Gill MD albuterol sulfate 90 mcg/actuation (Ventolin HFA) 2 puffs inhalation Q4-6H PRN 30 days albuterol sulfate 2.5 mg (3 mL) inhalation Q6H PRN 30 days back brace As directed calcium carbonate-vitamin D3 500 mg-10 mcg (400 unit) (Oyster Shell Calcium- Vitamin D3) 1 tab PO BID 90 days cane As directed clonazepam 1 mg PO TID PRN cyclobenzaprine 10 mg PO BEDTIME PRN 3 months duloxetine 60 mg PO QAM esomeprazole magnesium 40 mg PO DAILY fluticasone furoate-vilanterol 50-25 mcg/dose (Breo Ellipta) 1 inh inhalation Q24H 60 days fluticasone propionate 50 mcg/actuation (Flonase Allergy Relief) 1 spray intranasal DAILY food supplemt, lactose-reduced (Ensure Plus) 1 ea PO BID 25 days gabapentin 800 mg PO TID 3 months glucosamine-chondroitin 750-600 mg 1 tab PO BID ibuprofen 800 mg PO TID PRN 30 days incontinence pad, liner, disp Use 1 pad 4 times a day lidocaine 5% 1 patch topical DAILY PRN 30 days loperamide (Imodium A-D) 2 mg PO Q4H PRN miconazole nitrate 2% (Antifungal (miconazole)) 1 appl topical DAILY 3 days rs-smu-mnahf-calcium carb-K1 400 mcg-500 mg calcium-20 mcg (Women's 50 Plus Multivitamin) 1 tab PO DAILY nebulizers (AeroEclipse II Nebulizer) As directed nebulizers (Compact Compressor Nebulizer) As directed nebulizers (AeroEclipse II Nebulizer) As directed nicotine (polacrilex) 4 mg buccal Q8H PRN 30 days nitrofurantoin macrocrystal 100 mg PO BID 5 days nystatin 500,000 units (5 mL) PO QID 14 days nystatin 1 appl topical DAILY 14 days pregabalin (Lyrica) 100 mg PO BID 30 days simethicone 80 mg PO TID-QID PRN thiamine HCl (vitamin B1) 100 mg PO DAILY 90 days trazodone 200 mg PO BEDTIME PRN [Tumeric Curcumin Complex 1 cap PO DAILY] valacyclovir 1,000 mg PO DAILY 90 days walker As directed Tobacco use date assessed: 06/26/25 Dental Screening Dental Screen Date: 06/26/25 Did you have a dental visit in the last 12 months?: No Did you have a dental problem in the last 6 months where you did not have access to dental care?: No Was dental information given to patient?: Patient has dentist HPI HPI Comments History of Present Illness Details The patient is a 60-year-old female presenting for management of chronic conditions. She reports ongoing bright red rectal bleeding, which she describes as a few drops in the toilet and on wiping. She attributes this to hemorrhoids, a suspicion shared by a previous provider. Her last colonoscopy was in 2021, and a follow-up was recommended for 2026. Recent blood work from December was normal, including her hemoglobin level. The patient has a history of fibromyalgia, characterized by horrible, widespread pain affecting her knees, hips, back, neck, and shoulders. Her current pain regimen includes gabapentin 800 mg taken two to three times daily, Cymbalta, pain patches, Motrin 800, Osteo Bi-Flex, and a turmeric/emilie supplement. She previously took Lyrica for a year. She also has a history of arthritis and other back issues. The patient has been in menopause for eight years and has a history of uterine fibroids and cysts. She denies any current vaginal bleeding but has a history of blood in her urine. She has an upcoming appointment with her BUSINESS SUPPORT ASSISTANT. Her medical history is also significant for depression and anxiety, managed by a psychiatric provider, and acid reflux, for which she takes Nexium. She developed a rash in her mouth, believed to be oral thrush from her Breo inhaler, and started taking nystatin. She has known allergies to latex, codeine, and naproxen, as well as seasonal allergies treated with Flonase and an OTC allergy medication. Regarding health maintenance, her last mammogram was in August 2023, and she is up to date on her Pap smears and colonoscopy. [facility] Medical History (Updated 06/26/25 @ 14:22 by Jeimy Gill MD) Alcoholism Constipation Malnutrition Menopause Bilateral ovarian cysts Submucous uterine fibroid Nicotine dependence, cigarettes, uncomplicated WESTLEY (generalized anxiety disorder) Moderate recurrent major depression Chronic GERD Memory loss Leukocytosis Abdominal bloating Fibromyalgia Surgical History H/O excision of mass (02/07/24) History of lymph node excision History of endoscopy History of colonoscopy History of eye surgery Family History Father No problems noted. Mother Hypertension Diabetes Maternal Grandmother Cervical cancer Ovarian cancer Family/Other Mental health disorder Substance use disorder Social History Household Members: Children Household Members Other:: son Housing: Apartment Do you presently have visiting nurse or other home services: No Alcohol intake: current Alcohol intake frequency: a few times a week Alcohol type: wine Comment: 5 minute checks Patient Tobacco Use Status: Current everyday Tobacco user Tobacco use type: Cigarette Cigarette Packs Per Day: 1 Cigarettes Per Day: 20.0 Years Smoked: 40 e-Cigarette/Vaping Use: Never Used Second Hand Smoke Exposure: Yes Substance Use Type: Marijuana service: No Current occupational status: unemployed and disabled 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 1. Little interest or pleasure in doing things: more than half the days 2. Feeling down, depressed, or hopeless: more than half the days 3. Trouble falling or staying asleep, or sleeping too much: more than half the days 4. Feeling tired or having little energy: more than half the days 5. Poor appetite or overeating: several days 6. Feeling bad about yourself - or that you are a failure or have let yourself or your family down: several days 7. Trouble concentrating on things, such as reading the newspaper or watching television: several days 8. Moving or speaking so slowly that other people could have noticed. Or the opposite - being so fidgety or restless that you have been moving around a lot more than usual: several days 9. Thoughts that you would be better off or of hurting yourself in some way: not at all Total score: 12 Depression Screening Interpretation: Positive Depression Screening Follow-up: Existing condition and Follow-up Visit Requested Depression Screening Done: Yes 87372 - PHQ-9 Billing: Yes Source: Developed by Drs. Trevon Bowden, Kathleen Oconnor, German Quintero and colleagues, with an educational zeke from [employer]. Thrive Questionnaire Date Thrive assessed: 12/31/24 I am a: Patient What is your living situation today?: I have a steady place to live Within the past 12 months, did the food you bought not last and you didn't have the money to get more?: Often true Within the past 12 months, did you worry whether your food would run out before you got money to buy more?: Often true Do you have trouble paying for medicines?: No Do you have trouble getting transportation to medical appointments?: Yes Do you have trouble paying your heating and electricity bill?: No Do you have trouble taking care of your child, family member or friend?: No Do you have trouble with day-to-day activities such as bathing, preparing meals, shopping, managing finances, etc.?: Yes Are you currently unemployed and looking for a job?: No Are you interested in more education?: No Please select the resources that you would like help with: Housing/Assisted, Food, Paying for medicine, Transportation, Utilities, Care for elder or disabled and Daily support THRIVE Score: 3 AUDIT C Alcohol Use Questionnaire (AUDIT-C) 1. How often do you have a drink containing alcohol?: 2-3 times a week 2. How many drinks containing alcohol do you have on a typical day when you are drinking?: 1 or 2 3. How often do you have six or more drinks on one occasion?: Never Total Score: 3 Score Reviewed/Action Taken: Yes WESTLEY-7 AMB Questionnaire WESTLYE-7 Date WESTLEY - 7 assessed: 11/26/24 Feeling nervous, anxious, or on edge: 3 = Nearly every day Not being able to stop or control worryin = Nearly every day Worrying too much about different things: 3 = Nearly every day Trouble relaxin = Nearly every day Being so restless that it is hard to sit still: 3 = Nearly every day Becoming easily annoyed or irritable: 3 = Nearly every day Feeling afraid as if something awful might happen: 3 = Nearly every day Total WESTLEY-7 score (0-4 normal; 5-9 mild; 10-14 moderate; 15-21 severe): 21 Source: Developed by Drs. Trevon Bowden, Kathleen Oconnor, German Quintero and colleagues, with an educational zeke from [employer]. WESTLEY-7 Assessment Billing WESTLEY-7 Assessment Tool: WESTLEY-7 Assessment 80858 Review of Systems Const All systems reviewed & are unremarkable except as noted in HPI and below Card Denies chest pain at rest, Denies chest pain with activity, Denies edema, Denies irregular heart rhythm, Denies claudication, Denies dyspnea, Denies dyspnea on exertion, Denies orthopnea, Denies paroxysmal nocturnal dyspnea and Denies slow heart rate Resp Denies cough, Denies dyspnea and Denies dyspnea on exertion GI Denies abdominal pain, Denies change in bowel habits, Denies excessive flatus, Denies nausea and Denies vomiting Physical exam (Primary Care) Vital Signs: Last Vital Signs Temp 97.3 F 06/26/25 13:36 Pulse 105 H 06/26/25 13:36 Pulse Ox 99 06/26/25 13:36 Oxygen Delivery Method Room Air 06/26/25 13:36 BMI result Body Mass Index 24.9 Tobacco/Smoking Status: Tobacco use Status Tobacco use date assessed 06/26/25 06/26/25 13:38 Patient Tobacco Use Status Current everyday Tobacco 06/26/25 13:38 Tobacco use type Cigarette 06/26/25 13:38 e-Cigarette/Vaping Use Never Used 06/26/25 13:38 PHQ-9: PHQ-9 Score PHQ-9: Total score 12 06/26/25 13:38 Depression Screening Interpretation: Positive Depression Screening Follow-up: Existing condition and Follow-up Visit Requested Thrive Assessment: Date of Thrive Assessment Date Thrive assessed 12/31/24 06/26/25 13:38 Resp Effort & Inspection: normal respiratory effort Auscultation: clear to auscultation bilaterally Cardio Jugular venous distension: no JVD Rate: regular rate Rhythm: regular rhythm Heart sounds: S1 normal heart sound present and S2 normal heart sound present Extrem General: Yes full ROM Coding Level of Care Code Est Pt Level 4 (31671) Complex EM visit Add On G2211 Diagnoses Moderate recurrent major depression F33.1 WESTLEY (generalized anxiety disorder) F41.1 Rectal bleeding K62.5 Fibromyalgia M79.7 Additional Codes PHQ-9 - 27605 - PHQ-9 Billing: Yes ([id number]) WESTLEY-7 Assessment Billing - WESTLEY-7 Assessment Tool: WESTLEY-7 Assessment 26539 ([id number]) Time Spent (min) 24 Assessment & Plan Assessment & Plan (1) Moderate recurrent major depression: Code(s): F33.1 - Major depressive disorder, recurrent, moderate Category: Medical (2) WESTLEY (generalized anxiety disorder): Code(s): F41.1 - Generalized anxiety disorder Category: Medical (3) Rectal bleeding: Code(s): K62.5 - Hemorrhage of anus and rectum Category: Medical (4) Fibromyalgia: Code(s): M79.7 - Fibromyalgia Category: Medical Plan Plan 1. Rectal Bleeding The patient reports bright red rectal bleeding. Although this is likely due to known hemorrhoids, any bleeding is abnormal and requires further evaluation. A referral will be made to gastroenterology for assessment. 2. Fibromyalgia And Chronic Pain The patient continues to suffer from widespread chronic pain due to fibromyalgia, which she describes as horrible and constant. She currently takes gabapentin 800 mg TID, though sometimes only takes it BID. While an increase in gabapentin was considered, the current regimen will be continued as it provides some level of function. A refill for her pain patches will be provided. 3. Oral Candidiasis The patient has developed oral thrush, likely as a side effect from her Breo inhaler. She has started nystatin suspension but is concerned about the dosage she received. A new prescription for nystatin suspension 500,000 units/5 mL will be sent to the pharmacy. 4. Hematuria The patient has a history of blood in her urine. Given her history of uterine fibroids and cysts, she is advised to follow up with her BUSINESS SUPPORT ASSISTANT for evaluation, as she already has an appointment scheduled. 5. Depression And Anxiety The patient reports ongoing distress, depression, and anxiety, which is managed by a psychiatric provider. Her symptoms are exacerbated by a mentally unhealthy relationship and a history of trauma. The connection between her depression and chronic pain was discussed, and she was encouraged to end the unhealthy relationship to improve her overall well-being. 6. Health Maintenance The patient is due for her annual mammogram. An order for a mammogram will be submitted. The influenza vaccine was offered, but the patient deferred it at this time. 7. Social Determinants Of Health The patient is facing transportation challenges for non-medical necessities, which is a source of significant stress. The nurse navigator will be contacted to explore available resources to assist her with transportation. Orders: Referrals Gastroenterology Referral K62.5 - Hemorrhage of anus and rectum Medications: Refilled nystatin swish and retain in the suspension in the mouth for as long as possible then swallow 500,000 units (5 mL) PO QID 280 mL 1RF 14 days Discontinued pregabalin (Lyrica) Discontinued Reason: Patient Completed Course 100 mg PO BID 30 days 60 caps 0RF
== END 2025-06-26 14:26 | disposition home or self-care (01) ==
LOC: HO.HMCH 13:33
PROVIDERS: PCP Internal Medicine; Visit Provider Internal Medicine
DX: F33.1 Major depressive disorder, recurrent, moderate (principal); F41.1 Generalized anxiety disorder; K62.5 Hemorrhage of anus and rectum; M79.7 Fibromyalgia

== ENCOUNTER → 2025-06-26 13:32 | Outpatient (BNVA) | payer OTHER, SELFPAY | PROVIDERS: PCP Internal Medicine; Visit Provider Internal Medicine | DX: K62.5 Hemorrhage of anus and rectum (principal); M79.7 Fibromyalgia; F33.1 Major depressive disorder, recurrent, moderate; F41.1 Generalized anxiety disorder; B37.0 Candidal stomatitis; Z78.0 Asymptomatic menopausal state; Z79.899 Other long term (current) drug therapy | CPT/HCPCS: 96127; 99212 ==

== ENCOUNTER 2025-08-08 13:03 | Emergency (ER) | payer OTHER, SELFPAY ==
--- NOTE | ~2025-08-08 | XR_ITS ---
EXAMINATION: XR CHEST 2 VIEWS HISTORY: cp/sob COMPARISON: Comparison is made with the prior examination dated 02/01/2022. FINDINGS: PA and lateral views of the chest are submitted. The lungs are expanded and clear. There is no pleural effusion, pneumothorax, or pulmonary vascular congestion. The heart is normal in size. There is slight anterior wedging of a midthoracic vertebral body without change. XR/XR chest 2V IMPRESSION: No acute cardiopulmonary abnormality. Electronically signed by: Trevon Olgiun MD 08/08/2025 02:10 PM [place]
[2025-08-08 13:22] VITALS: BP 110/60; PULSE 96; O2SAT 98
[2025-08-08 13:36] VITALS: BP 121/61; PULSE 88; RESP 18; TEMP 36.3; O2SAT 95; BMI 25.3
--- NOTE | 2025-08-08 13:37 | ED.GENADULT ---
HPI - General Adult General Chief complaint: General Medical Stated complaint: B/L LEG PAIN, L FOOT SWELLING, N/V/D Related Data Home Medications ?Medication ?Instructions ?Recorded ?Confirmed trazodone 100 mg tablet 200 mg PO BEDTIME PRN Insomnia 08/03/21 06/26/25 glucosamine-chondroitin 750 mg-600 1 tab PO BID 07/19/22 06/26/25 mg tablet loperamide 2 mg capsule (Imodium 2 mg PO Q4H PRN loose stool 07/19/22 06/26/25 A-D) [id number]-[id number]-[id number] ac 400 1 tab PO DAILY 07/19/22 06/26/25 mcg-calcium carb 500 mg-vit K1 20 mcg tablet (Women's 50 Plus Multivitamin) Tumeric Curcumin Complex 1 cap PO DAILY 09/05/22 06/26/25 clonazepam 1 mg tablet 1 mg PO TID PRN Anxiety 12/11/23 06/26/25 duloxetine 60 mg capsule,delayed 60 mg PO QAM 12/27/24 06/26/25 release Previous Rx's ?Medication ?Instructions ?Recorded nebulizers (AeroEclipse II #1 ea 05/02/24 Nebulizer) cane #1 ea 05/03/24 nebulizers (AeroEclipse II #1 ea 09/16/24 Nebulizer) albuterol sulfate 90 mcg/actuation 2 puff inhalation Q4-6H PRN for 11/23/24 aerosol inhaler (Ventolin HFA) wheezing 30 days #18 ea gabapentin 800 mg tablet 800 mg PO TID 3 months #270 tabs 01/29/25 valacyclovir 1 gram tablet 1,000 mg PO DAILY 90 days #90 tabs 01/29/25 fluticasone furoate 50 1 inh inhalation Q24H 60 days #60 02/28/25 mcg-vilanterol 25 mcg/dose ea inhalation powder (Breo Ellipta) nebulizers (Compact Compressor #1 ea 03/19/25 Nebulizer) walker #1 ea 03/19/25 back brace #1 ea 03/22/25 albuterol sulfate 2.5 mg/3 mL 2.5 mg (3 mL) inhalation Q6H PRN 03/24/25 (0.083 %) solution for nebulization bronchospasm 30 days #360 mL fluticasone propionate 50 1 spray intranasal DAILY #100 mL 08/05/25 mcg/actuation nasal spray,suspension (Flonase Allergy Relief) nicotine (polacrilex) 4 mg buccal 4 mg buccal Q8H PRN nicotine 03/25/25 lozenge cravings 30 days #81 ea simethicone 80 mg chewable tablet 80 mg PO TID-QID PRN for abdominal 03/26/25 pain #120 tabs calcium 500 mg (as 1 tab PO BID 90 days #180 tabs 04/01/25 carbonate)-vitamin D3 10 mcg (400 unit) tablet (Oyster Shell Calcium-Vitamin D3) incontinence pad, liner, disp #120 ea 05/07/25 food supplemt, lactose-reduced 1 ea PO BID 25 days #5,688 mL 07/19/25 0.05 gram-1.5 kcal/mL oral liquid (Ensure Plus) lidocaine 5 % topical patch 1 patch topical DAILY PRN pain 30 07/19/25 days #15 ea nitrofurantoin macrocrystal 100 mg 100 mg PO BID 5 days #10 caps 07/19/25 capsule ibuprofen 800 mg tablet 800 mg PO TID PRN fever or pain 30 08/01/25 days #90 tabs cyclobenzaprine 10 mg tablet 10 mg PO BEDTIME PRN muscle spasm 08/02/25 3 months #90 tabs miconazole nitrate 2 % topical 1 appl topical DAILY 3 days #14 08/02/25 cream (Antifungal (miconazole)) grams nystatin 100,000 unit/gram topical 1 appl topical DAILY 14 days #30 08/02/25 ointment grams nystatin 100,000 unit/mL oral 500,000 unit (5 mL) PO QID 14 days 08/02/25 suspension #280 mL lidocaine HCl 4 % (40 mg/mL) 1 appl mucous membrane BID PRN 08/04/25 mucosal solution pain 30 days #50 mL lidocaine HCl 2 % mucosal solution 1 appl mucous membrane BID PRN 08/05/25 pain 7 days #100 mL esomeprazole magnesium 40 mg 40 mg PO DAILY #30 caps 08/07/25 capsule,delayed release potassium chloride 10 mEq 10 meq PO DAILY 5 days #5 caps 08/12/25 capsule,extended release thiamine HCl (vitamin B1) 100 mg 100 mg PO DAILY 90 days #90 tabs 08/29/25 tablet Allergies Allergy/AdvReac Type Severity Reaction Status Date / Time latex (LATEX) Allergy Mild RASH Verified 08/08/25 13:39 codeine (CODEINE) AdvReac Intermediate UPSET Verified 08/08/25 13:39 STOMACH naproxen (NAPROXEN) AdvReac Intermediate VOMITING Verified 08/08/25 13:39 [facility] Past Medical History Medical History Alcoholism Constipation Malnutrition Menopause Bilateral ovarian cysts Submucous uterine fibroid Nicotine dependence, cigarettes, uncomplicated WESTLEY (generalized anxiety disorder) Moderate recurrent major depression Chronic GERD Memory loss Leukocytosis Abdominal bloating Fibromyalgia Surgical History H/O excision of mass (02/07/24) History of lymph node excision History of endoscopy History of colonoscopy History of eye surgery Family History Family History Father No problems noted. Mother Hypertension Diabetes Maternal Grandmother Cervical cancer Ovarian cancer Family/Other Mental health disorder Substance use disorder Social History Social History Household Members: Children Household Members Other:: son Housing: Apartment Do you presently have visiting nurse or other home services: No Alcohol intake: current Alcohol intake frequency: a few times a week Alcohol type: wine Comment: 5 minute checks Patient Tobacco Use Status: Current everyday Tobacco user Tobacco use type: Cigarette Cigarette Packs Per Day: 1 Cigarettes Per Day: 20.0 Years Smoked: 40 e-Cigarette/Vaping Use: Never Used Second Hand Smoke Exposure: Yes Substance Use Type: Marijuana service: No Current occupational status: unemployed and disabled 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 Full HPI, ROS and PE to be performed by primary ED provider. 60 yo F w/pmhx ETOH abuse, fibromyalgia, WESTLEY, GERD presenting to the ED c/o complications of thrush, diarrhea & LE swelling. Also reports CP & SOB PE: in wheelchair, difficulty ambulating 2/2 pain, tearful Plan: Labs, UA, SARs, CXR Discharge Plan Discharge Clinical Impression: Lower extremity pain Patient Disposition: Left W/O Completing Treatment Prescriptions: No Action Tumeric Curcumin Complex 1,000 mg capsule 1 cap PO DAILY (DME) nebulizers [AeroEclipse II Nebulizer] Misc See Rx Instructions .Route Qty: 1 0RF Rx Instructions: As directed (DME) cane Device See Rx Instructions .Route Qty: 1 0RF Rx Instructions: As directed (DME) nebulizers [AeroEclipse II Nebulizer] Misc See Rx Instructions .Route Qty: 1 0RF Rx Instructions: As directed albuterol sulfate [Ventolin HFA] 90 mcg/actuation HFA aerosol inhaler 2 puff inhalation Q4-6H PRN (Reason: for wheezing) 30 Days Qty: 18 3RF valacyclovir 1 gram tablet 1,000 mg PO DAILY 90 Days Qty: 90 3RF gabapentin 800 mg tablet 800 mg PO TID 90 Days Qty: 270 1RF Breo Ellipta 50-25 mcg/dose blister with device 1 inh inhalation Q24H 60 Days Qty: 60 6RF (DME) nebulizers [Compact Compressor Nebulizer] Mis See Rx Instructions .Route Qty: 1 0RF Rx Instructions: As directed (DME) walker [facility] See Rx Instructions .Route Qty: 1 0RF Rx Instructions: As directed (DME) back brace Mis See Rx Instructions .Route Qty: 1 0RF Rx Instructions: As directed albuterol sulfate 2.5 mg /3 mL (0.083 %) solution for nebulization 2.5 mg inhalation Q6H PRN (Reason: bronchospasm) 30 Days Qty: 360 0RF fluticasone propionate [Flonase Allergy Relief] 50 mcg/actuation spray,suspension 1 spray intranasal DAILY Qty: 100 2RF Rx Instructions: administer into each nostril nicotine (polacrilex) 4 mg lozenge 4 mg buccal Q8H PRN (Reason: nicotine cravings) 30 Days Qty: 81 3RF simethicone 80 mg tablet,chewable 80 mg PO TID-QID PRN (Reason: for abdominal pain) Qty: 120 5RF calcium carbonate-vitamin D3 [Oyster Shell Calcium-Vit D3] 500 mg-10 mcg (400 unit) tablet 1 tab PO BID 90 Days Qty: 180 1RF (DME) incontinence pad, liner, disp Pad See Rx Instructions .Route Qty: 120 11RF Rx Instructions: Use 1 pad 4 times a day nitrofurantoin macrocrystal 100 mg capsule 100 mg PO BID 5 Days Qty: 10 0RF Rx Instructions: must administer with a meal/food Ensure Plus 0.05 gram- 1.5 kcal/mL liquid 1 ea PO BID 25 Days Qty: 5688 1RF lidocaine 5 % adhesive patch,medicated 1 patch topical DAILY PRN (Reason: pain) 30 Days Qty: 15 0RF Rx Instructions: leave on most painful area for up to 12 hrs ibuprofen 800 mg tablet 800 mg PO TID PRN (Reason: fever or pain) 30 Days Qty: 90 0RF nystatin 100,000 unit/gram ointment 1 appl topical DAILY 14 Days Qty: 30 0RF nystatin 100,000 unit/mL suspension 500,000 unit PO QID 14 Days Qty: 280 1RF Rx Instructions: swish and retain in the suspension in the mouth for as long as possible then swallow miconazole nitrate [Antifungal (miconazole)] 2 % cream 1 appl topical DAILY 3 Days Qty: 14 0RF cyclobenzaprine 10 mg tablet 10 mg PO BEDTIME PRN (Reason: muscle spasm) 90 Days Qty: 90 1RF lidocaine HCl 4 % (40 mg/mL) solution 1 appl mucous membrane BID PRN (Reason: pain) 30 Days Qty: 50 0RF lidocaine HCl 2 % solution 1 appl mucous membrane BID PRN (Reason: pain) 7 Days Qty: 100 1RF esomeprazole magnesium 40 mg capsule,delayed release(DR/EC) 40 mg PO DAILY Qty: 30 0RF potassium chloride 10 mEq capsule, extended release 10 meq PO DAILY 5 Days Qty: 5 0RF thiamine HCl (vitamin B1) 100 mg tablet 100 mg PO DAILY 90 Days Qty: 90 1RF duloxetine 60 mg capsule,delayed release(DR/EC) 60 mg PO QAM trazodone 100 mg tablet 200 mg PO BEDTIME PRN (Reason: Insomnia) Women's 50 Plus Multivitamin 400 mcg-500 mg calcium-20 mcg tablet 1 tab PO DAILY Patient Comments: Patient started herself on this medication. glucosamine-chondroitin 750-600 mg tablet 1 tab PO BID Patient Comments: Patient reports that she started herself on this supplement. loperamide [Imodium A-D] 2 mg capsule 2 mg PO Q4H PRN (Reason: loose stool) Patient Comments: Patient reports that she started herself on this medication. Rx Instructions: administer after each loose stool until symptoms controlled; do not exceed 8 mg per 24 hrs clonazepam 1 mg tablet 1 mg PO TID PRN (Reason: Anxiety) Discharge Date/Time: 08/08/25 19:05
--- NOTE | 2025-08-08 13:40 | ECG_ITS ---
Test Reason : sob Blood Pressure : */* mmHG Vent. Rate : 95 BPM Atrial Rate : 95 BPM P-R Int : 164 ms QRS Dur : 72 ms QT Int : 366 ms P-R-T Axes : 75 71 71 degrees QTcB Int : 459 ms Normal sinus rhythm Junctional ST depression, probably normal Borderline ECG When compared with ECG of 30-Dec-2024 08:52, No significant change was found Referred By: Luzma Ramirez Electronically Signed By: Kirill Quintero
== END 2025-08-08 19:05 | disposition left against medical advice (07) ==
PROVIDERS: Emergency Provider Emergency Medicine
DX: M79.662 Pain in left lower leg (principal); M79.661 Pain in right lower leg; B37.9 Candidiasis, unspecified; R19.7 Diarrhea, unspecified; R07.9 Chest pain, unspecified; K21.9 Gastro-esophageal reflux disease without esophagitis; Z72.0 Tobacco use; Z79.899 Other long term (current) drug therapy
CPT/HCPCS: 71046; 93005; 99283

== ENCOUNTER → 2025-08-08 13:40 | Outpatient (BNV) | payer OTHER, SELFPAY | PROVIDERS: Visit Provider Internal Medicine Cardiovascular Disease | DX: I49.2 Junctional premature depolarization (principal) | CPT/HCPCS: 93010 ==

== ENCOUNTER → 2025-08-08 13:41 | Outpatient (BNV) | payer OTHER, SELFPAY | PROVIDERS: Visit Provider Radiology Diagnostic Radiology | DX: R07.9 Chest pain, unspecified (principal); R06.02 Shortness of breath | CPT/HCPCS: 71046 ==

== ENCOUNTER 2025-08-11 16:21 | Outpatient (REF) | payer OTHER, SELFPAY ==
[2025-08-11 17:44] LABS: Potassium 2.9 mmol/L (3.3-5.1)
== END 2025-08-11 16:22 | disposition home or self-care (01) ==
LOC: HO.LAB 16:21
PROVIDERS: PCP Internal Medicine; Visit Provider Internal Medicine
DX: E87.6 Hypokalemia (principal)
CPT/HCPCS: 36415; 84132